=== PATIENT | female | born 1940 | race Caucasian/White ===

== ENCOUNTER 2016-05-09 21:43 | Inpatient (IN) | payer MEDICARE ==
[~2016-05-09] VITALS: Ht 152.4 cm; Wt 72.2 kg
[~2016-05-09 21:43] MED LIST: ASPI81TA82 PO; CLIN1CAP5 PO; FENO50TA PO; FISH100020 PO; FLON0.053; FURO1TAB93 PO; ISOS30TA3 PO; KLOR20TA6 PO; METF-324 PO; METO50CR PO; MONT5CHW2 CHEW; PRAV40TA2 PO; PROT40TA PO; SERT-132 PO; SPIRCAP INH; SYMB160A INH; TAZT240C2 PO
[2016-05-09] MEDS: RESP: ALBUTEROL 2.5 MG/IPRATROPIUM 0.5 MG NEB (SCH) INH ×2 (21:57→21:58)
[2016-05-09 21:58] VITALS: BP 143/61; PULSE 87; RESP 28; TEMP 98.7; O2SAT 97
[2016-05-09] MEDS ORDERED: SODIUM CHLORIDE 0.9% FLUSH 5 ML FLUSH IVF PRN (22:00)
[2016-05-09] MEDS ORDERED: methylPREDNISolone SOD SUCC 125 MG/2 ML VIAL IVP ONE (22:00)
[2016-05-09 22:11] VITALS: O2SAT 99
--- NOTE | 2016-05-09 22:20 | RADHPO ---
EXAM DATE/TIME: 05/09/2016 22:08 [place] COMPARISON: CHEST SINGLE AP, July 15, 2015, 12:10. INDICATIONS : Short of breath. MEDICAL HISTORY : Chronic obstructive pulmonary disease. Congestive heart failure. Hypertension. SURGICAL HISTORY : None. ENCOUNTER: Initial ACUITY: 2 days PAIN SCORE: 0/10 LOCATION: Bilateral chest FINDINGS: A single view of the chest demonstrates cardiomegaly. Mild peribronchial thickening. Previous rotator cuff repair right shoulder. No focal consolidation or significant effusion. CONCLUSION: 1. Cardiomegaly. No focal infiltrate. Tortuous and atherosclerotic aorta. Woody Howard MD on May 09, 2016 at 22:18 Board Certified Radiologist. This report was verified electronically.
[2016-05-09] MEDS ORDERED: TOPR50TA PO (22:32)
[2016-05-09] MEDS ORDERED: METF1000 PO (22:32)
[2016-05-09] MEDS ORDERED: ASPI1TAB69 PO (22:32)
[2016-05-09] MEDS ORDERED: ISOS30TA3 PO (22:32)
[2016-05-09] MEDS ORDERED: SYMB160A INH (22:32)
[2016-05-09] MEDS ORDERED: DILT240C36 PO (22:32)
[2016-05-09] MEDS ORDERED: FENO145T2 PO (22:32)
[2016-05-09] MEDS ORDERED: MONT5CHW2 CHEW (22:32)
[2016-05-09] MEDS ORDERED: FURO1TAB60 PO (22:32)
[2016-05-09] MEDS ORDERED: PROT40TA PO (22:33)
[2016-05-09] MEDS ORDERED: SPIRCAP INH (22:33)
[2016-05-09] MEDS ORDERED: THEO400T2 PO (22:33)
[2016-05-09] MEDS ORDERED: MICR10CA PO (22:33)
[2016-05-09] MEDS ORDERED: LOSA100T PO (22:35)
[2016-05-09 22:36] LABS: AUTOMATED NEUTROPHIL # 5.9 TH/MM3 (1.8-7.7); BASOPHIL % 0.3 % (0.0-2.0); EOSINOPHIL # 0.1 TH/MM3 (0-0.4); EOSINOPHIL % 0.7 % (0.0-4.0); LYMPH % 7.9 % (9.0-44.0); LYMPHOCYTE # 0.6 TH/MM3 (1.0-4.8); MEAN CELL VOLUME 62.5 FL (80.0-100.0); MEAN CORPUSCULAR HEMOGLOBIN 18.8 PG (27.0-34.0); MEAN CORPUSCULAR HGB CONC 30.1 % (32.0-36.0); MONO % 7.8 % (0.0-8.0); NEUT % 83.3 % (16.0-70.0); PLATELET COUNT 246 TH/MM3 (150-450); RED CELL DISTRIBUTION WIDTH 19.8 % (11.6-17.2); WHITE BLOOD COUNT 7.2 TH/MM3 (4.0-11.0)
[2016-05-09 22:45] LABS: CHLORIDE 101 MEQ/L (98-107); POTASSIUM 4.5 MEQ/L (3.5-5.1); SODIUM (NA) 139 MEQ/L (136-145)
[2016-05-09 22:49] LABS: ANION GAP 10 MEQ/L (5-15); APTT (PATIENT) 22.4 SEC (24.3-30.1); BICARBONATE 28.1 MEQ/L (21.0-32.0); BLOOD UREA NITROGEN 22 MG/DL (7-18); INTERNATIONAL NORMALIZED RATIO 1.1 RATIO; PROTHROMBIN TIME - PATIENT 11.8 SEC (9.8-11.6)
[2016-05-09 22:52] LABS: GLOMERULAR FILTRATION RATE 57 ML/MIN (>89); HEMO FLAGS AUTO DIFF
[2016-05-09 22:53] LABS: HEMATOCRIT 18.8 % (35.0-46.0)
[2016-05-09] MEDS ORDERED: SODIUM CHLOR 0.9% 250 ML INJ 250 ML IV ONE (23:15)
--- NOTE | 2016-05-09 23:18 | PD ---
HPI Chief Complaint: Respiratory Distress Time Seen by Provider: 21:53 Travel History International Travel<30 days: No Contact w/Intl Traveler<30days: No Traveled to known affect area: No History of Present Illness HPI 75yo F with PMH of COPD, CHF presents to the ED with c/o sob since yesterday. States she took her pumps but it didnt work. States she uses home O2 3L NC but she is still sob. Had chest tightness for a second and it went away. Denies any fever, n/v, abdominal pain, black stool. PFSH Past Medical History Hx Anticoagulant Therapy: Yes (81mg asa) Arthritis: Yes Anxiety: Yes Depression: Yes Heart Rhythm Problems: No Cancer: No Cardiac Catheterization: Yes Cardiovascular Problems: Yes (chf, htn) High Cholesterol: Yes Chest Pain: Yes Congestive Heart Failure: Yes COPD: Yes Coronary Artery Disease: Yes Diabetes: Yes (type 2 ) Patient Takes Glucophage: Yes Diminished Hearing: No Endocrine: Yes Gastrointestinal Disorders: Yes GERD: Yes Genitourinary: No Hypertension: Yes Musculoskeletal: Yes Neurologic: Yes Psychiatric: Yes Reproductive: Yes (oxygen use at home-2LPM ) Respiratory: Yes (copd) Sleep Apnea: Yes (c-pap at home) Thyroid Disease: Yes Tetanus Vaccination: Unknown Influenza Vaccination: Yes Menopausal: Yes Past Surgical History Abdominal Surgery: Yes (colon resection r/t beign tumor removed) Appendectomy: Yes Body Medical Devices: metal in r shoulder Cholecystectomy: Yes Coronary Artery Bypass Graft: No Eye Surgery: Yes (eye repair/cataracts bilat) Genitourinary Surgery: Yes (hysterectomy) Hysterectomy: Yes Neurologic Surgery: No Thoracic Surgery: Yes (cyst removed bilat breats) Tonsillectomy: Yes Other Surgery: Yes (bilat feet bunion removal) Family History Family Myocardial Infarction: Yes (Sibling) Social History Alcohol Use: No Tobacco Use: Yes (1/2 ppd) Substance Use: No Allergies-Medications (Allergen,Severity, Reaction): Coded Allergies: Codeine (Verified Allergy, Severe, 05/09/16) . Penicillin (Unverified Allergy, Severe, 05/09/16) . Uncoded Allergies: CRABS (Allergy, Intermediate, ., 05/09/16) . Reported Meds & Prescriptions Reported Meds & Active Scripts Active Reported Losartan (Losartan Potassium) 100 Mg Tab 100 Mg PO DAILY Theophylline ER 24 HR (Theophylline) 400 Mg Tab 300 Mg PO DAILY Spiriva Handihaler (Tiotropium Inh) 18 Mcg Cap 18 Mcg INH DAILY 1 capsule = 18 mcg Micro-K (Potassium Chloride) 10 Meq Cap 20 Meq PO BID Protonix (Pantoprazole Sodium) 40 Mg Tab 40 Mg PO DAILY Singulair (Montelukast Sodium) 5 Mg Chew 5 Mg CHEW HS Toprol XL (Metoprolol Succinate) 50 Mg Tab 50 Mg PO BID Metformin (Metformin HCl) 1,000 Mg Tab 1,000 Mg PO BIDPC With meals Isosorbide Mononitrate ER (Isosorbide Mononitrate) 30 Mg Gilberto 30 Mg PO DAILY Lasix (Furosemide) 40 Mg Tab 40 Mg PO BID Fenofibrate 145 Mg Tab 145 Mg PO HS Dilt-Xr (Diltiazem HCl) 240 Mg Caper 240 Mg PO DAILY Symbicort Inh (Budesonide/Formoterol Fumarate) 160-4.5 Mcg/Act Aero 2 Puff INH DAILY Aspirin 81 Mg Tabdr 81 Mg PO DAILY Review of Systems Except as stated in HPI: all other systems reviewed are Neg Physical Exam Narrative GENERAL: 75yo F in moderate distress. SKIN: Warm and dry. HEAD: Atraumatic. Normocephalic. EYES: Pupils equal and round. No scleral icterus. No injection or drainage. ENT: No nasal bleeding or discharge. Mucous membranes pink and moist. NECK: Trachea midline. No JVD. CARDIOVASCULAR: Regular rate and rhythm. No murmur appreciated. RESPIRATORY: + accessory muscle use. End expiratory wheezing on left. O2 sat is 95% on 3L NC but pt appears labored. GASTROINTESTINAL: Abdomen soft, non-tender, nondistended. No rebound tenderness or guarding. MUSCULOSKELETAL: No obvious deformities. No clubbing. No cyanosis. +Bilateral lower ext edema. NEUROLOGICAL: Awake and alert. No obvious cranial nerve deficits. Motor grossly within normal limits. Normal speech. PSYCHIATRIC: Appropriate mood and affect; insight and judgment normal. Data Data Last Documented VS Vital Signs Date Time Temp Pulse Resp B/P Pulse Ox O2 Delivery O2 Flow Rate FiO2 05/09/16 22:11 99 Nasal Cannula 3 05/09/16 22:06 87 28 05/09/16 21:58 98.7 143/61 Orders Complete Blood Count With Diff (05/09/16 21:54) Basic Metabolic Panel (Bmp) (05/09/16 21:54) B-Type Natriuretic Peptide (05/09/16 21:54) Act Partial Throm Time (Ptt) (05/09/16 21:54) Prothrombin Time / Inr (Pt) (05/09/16 21:54) Ckmb (Isoenzyme) Profile (05/09/16 21:54) Troponin I (05/09/16 21:54) Blood Culture (05/09/16 21:54) Iv Access Insert/Monitor (05/09/16 21:54) Electrocardiogram (05/09/16 21:54) Ecg Monitoring (05/09/16 21:54) Oximetry (05/09/16 21:54) Oxygen Administration (05/09/16 21:54) Chest, Single Ap (05/09/16 21:54) Sodium Chloride 0.9% Flush (Ns Flush) (05/09/16 22:00) Methylprednisolone So Succ Inj (Solumedr (05/09/16 22:00) Albuterol-Ipratropium Neb (Duoneb Neb) (05/09/16 22:00) Theophylline (Aminophylline) (05/09/16 22:31) Arterial Blood Gas (Abg) (05/09/16 ) Type And Screen (05/09/16 23:04) Red Blood Cells (Rbc) (05/09/16 23:04) Sodium Chlor 0.9% 250 Ml Inj (Ns 250 Ml (05/09/16 23:15) Pantoprazole Inj (Protonix Inj) (05/09/16 23:30) Pantoprazole Inj (Protonix Inj) (05/09/16 23:30) Admit To Inpatient (05/09/16 ) Vital Signs (Adult) Q4H (05/09/16 23:22) Activity Oob With Assistance (05/09/16 23:22) Collateral Analyst / Telemetry .CONTINUOUS (05/09/16 23:22) Intake + Output ROB.QSHIFT (05/09/16 23:22) Diet Heart Healthy (05/10/16 Breakfast) Sodium Chloride 0.9% Flush (Ns Flush) (05/09/16 23:30) Sodium Chloride 0.9% Flush (Ns Flush) (05/10/16 09:00) Ondansetron Inj (Zofran Inj) (05/09/16 23:30) Bisacodyl Supp (Dulcolax Supp) (05/09/16 23:30) Comprehensive Metabolic Panel (05/10/16 06:00) Complete Blood Count With Diff (05/10/16 06:00) Pharmacologic Contraindication (05/09/16 23:22) Acetaminophen (Tylenol) (05/09/16 23:30) Morphine Inj (Morphine Inj) (05/09/16 23:30) Inpatient Certification (05/09/16 ) Budeson-Formot 160-4.5 Mg Inh (Symbicort (05/09/16 23:30) Diltiazem Cd (Cardizem Cd) (05/10/16 09:00) Metoprolol Succinate Er (Toprol Xl) (05/10/16 09:00) Montelukast Chew (Singulair Chew) (05/10/16 21:00) Theophylline Er 24 Hr ([place]-24) (05/10/16 09:00) Tiotropium Inh (Spiriva Inh) (05/10/16 09:00) Admit Order (Ed Use Only) (05/09/16 23:28) Consult Gastroenterology (05/09/16 ) Blood Product Administration .UPON TRANSFUSION (05/09/16 23:29) Labs Laboratory Tests Test 05/09/16 05/09/16 05/09/16 22:05 23:10 23:16 Prothrombin Time 11.8 SEC Prothromb Time International 1.1 RATIO Ratio Activated Partial 22.4 SEC Thromboplast Time Sodium Level 139 MEQ/L Potassium Level 4.5 MEQ/L Chloride Level 101 MEQ/L Carbon Dioxide Level 28.1 MEQ/L Anion Gap 10 MEQ/L Blood Urea Nitrogen 22 MG/DL Creatinine 0.96 MG/DL Estimat Glomerular Filtration 57 ML/MIN Rate Random Glucose 159 MG/DL Calcium Level 9.5 MG/DL Total Creatine Kinase 52 U/L Troponin I LESS THAN 0.02 NG/ML B-Type Natriuretic Peptide 98 PG/ML White Blood Count 7.2 TH/MM3 Red Blood Count 3.00 MIL/MM3 Hemoglobin 5.7 GM/DL Hematocrit 18.8 % Mean Corpuscular Volume 62.5 FL Mean Corpuscular Hemoglobin 18.8 PG Mean Corpuscular Hemoglobin 30.1 % Concent Red Cell Distribution Width 19.8 % Platelet Count 246 TH/MM3 Mean Platelet Volume 7.7 FL Neutrophils (%) (Auto) 83.3 % Lymphocytes (%) (Auto) 7.9 % Monocytes (%) (Auto) 7.8 % Eosinophils (%) (Auto) 0.7 % Basophils (%) (Auto) 0.3 % Neutrophils # (Auto) 5.9 TH/MM3 Lymphocytes # (Auto) 0.6 TH/MM3 Monocytes # (Auto) 0.6 TH/MM3 Eosinophils # (Auto) 0.1 TH/MM3 Basophils # (Auto) 0.0 TH/MM3 CBC Comment AUTO DIFF Differential Comment AUTO DIFF CONFIRMED Platelet Estimate NORMAL Platelet Morphology Comment NORMAL Basophilic Stippling MOD Tear Drop Cells 1+ Ovalocytes 2+ Stomatocytes 1+ Theophylline Level 5.7 MCG/ML Blood Gas Puncture Site RT RADIAL Blood Gas Patient Temperature 98.6 Blood Gas HCO3 27 mmol/L Blood Gas Base Excess 1.2 mmol/L Blood Gas Oxygen Saturation 87 % Arterial Blood pH 7.31 Arterial Blood Partial 55 mmHG Pressure CO2 Arterial Blood Partial 73 mmHG Pressure O2 Arterial Blood Oxygen Content 6.2 Vol % Arterial Blood 3.9 % Carboxyhemoglobin Arterial Blood Methemoglobin 1.5 % Blood Gas Hemoglobin 4.9 G/DL Oxygen Delivery Device NASAL CANNULA Blood Gas Liter Flow 3 L/M Blood Type AB POSITIVE Antibody Screen NEGATIVE Crossmatch Leukocyte-Reduced Red Blood Cells Blood Bank Comment MDM Medical Decision Making Medical Screen Exam Complete: Yes Emergency Medical Condition: Yes Interpretation(s) EKG: NSR 82bpm. RBBB. No ST segment elevation or depression. Differential Diagnosis COPD exacerbation vs. CHF exacerbation vs. Pneumonia vs. ACS vs. symptomatic anemia Narrative Course 75yo F with PMH of CHF and COPD here with SOB. Pt had mild expiratory wheezing on exam so duonebs x3 and methylprednisolone 125mg IV given. Pt reevaluated at bedside and states she feels slightly better. O2 94% on 3L NC. Labs reviewed , H/H low at 5.7/18.8. BNP 98. Troponin negative. Hemaprompt is positive. Protonix bolus and drip ordered. 2 units of PRBC ordered and will transfuse 2 units now. Pt consented to blood transfusion. Pt is hemodynamically stable with BP 141/58 and HR 92. CXR showed cardiomegaly. No focal infiltrate. GI consult placed. Discussed with Dr. Rodriguez and accepted to her service. Critical Care Narrative Aggregate critical care time was 50 minutes. Time to perform other separately billable procedures was not included in the critical care time. My time did not include minutes spent treating any other patients simultaneously or on activities that did not directly contribute to the patient's treatment. The services I provided to this patient were to treat and/or prevent clinically significant deterioration that could result in: cardiovascular collapse or . I provided critical care services requiring my management, as noted below: Chart data review, documentation time, medication orders and management, vital sign assessments/reviewing monitor data, ordering and reviewing lab tests, ordering and interpreting/reviewing x-rays and diagnostic studies, care of the patient and discussion of the patient with the admitting physicians. HemaPrompt Point of Care Internal Pos. & Neg. Controls: Passed Fecal Specimen Occult Blood: Positive Diagnosis Primary Impression: GI bleed Qualified Code: K92.2 - Gastrointestinal hemorrhage, unspecified gastrointestinal hemorrhage type Admitting Information Admitting Physician Requests: it Marie Varela DO May 09, 2016 23:18
[2016-05-09 23:24] LABS: BLOOD GAS BASE EXCESS 1.2 mmol/L (-2-2); BLOOD GAS CARBOXYHEMOGLOBIN 3.9 % (0-4); BLOOD GAS HCO3 27 mmol/L (22-26); BLOOD GAS METHEMOGLOBIN 1.5 % (0-2); BLOOD GAS O2 HGB SATURATION 87 % (90-100); BLOOD GAS OXYGEN CONTENT 6.2 Vol % (12.0-20.0); BLOOD GAS PCO2 55 mmHG (38-42); BLOOD GAS PO2 73 mmHG (61-120); BLOOD GAS TOTAL HGB 4.9 G/DL (12.0-16.0); TEMP CORR TO 98.6
[2016-05-09 23:25] LABS: CRITICAL VALUE YES; DRAW SITE RT RADIAL; LITER FLOW 3 L/M; NUMBER OF ARTERIAL PUNCTURES 1; OXYGEN DEVICE NASAL CANNULA; STAT YES; ULNAR PULSE PRESENT
[2016-05-09 23:26] LABS: MEAN CORPUSCULAR HGB CONC 29.9 % (32.0-36.0)
[2016-05-09] MEDS ORDERED: ACETAMINOPHEN 325 MG TAB PO PRN (23:30)
[2016-05-09] MEDS ORDERED: PANTOPRAZOLE INJ 80 MG in SODIUM CHLORIDE 0.9% INJ 35 ML IV ONE (23:30)
[2016-05-09] MEDS ORDERED: MORPHINE SULFATE 4 MG/ML INJ IV PRN (23:30)
[2016-05-09] MEDS: BUDESONIDE-FORMOTEROL 160/4.5 MCG INHALER INH SCH (23:30)
[2016-05-09] MEDS ORDERED: BISACODYL 10 MG SUPP PR PRN (23:30)
[2016-05-09] MEDS ORDERED: ONDANSETRON HCL 4 MG/2 ML VIAL IVP PRN (23:30)
[2016-05-09 23:47] LABS: CREATINE KINASE 52 U/L (26-192)
[2016-05-10] VITALS (27 sets, daily range): BP systolic 85–173; BP diastolic 48–88; PULSE 88–109; RESP 20–44; TEMP 97.7–99; O2SAT 93–99
[2016-05-10] MEDS: PANTOPRAZOLE INJ 80 MG in SODIUM CHLORIDE 0.9% INJ 100 ML IV SCH ×3 (00:03→15:27)
[2016-05-10 00:23] LABS: OVALOCYTES 2+ (NORMAL); PLATELET ESTIMATE SMEAR NORMAL (NORMAL); PLATELET MORPHOLOGY NORMAL (NORMAL); SCAN/DIFF AUTO DIFF CONFIRMED; STOMATOCYTES 1+ (NORMAL); TEARDROP RBCS 1+ (NORMAL)
[2016-05-10] MEDS: METOPROLOL SUCCINATE 50 MG EXTENDED RELEASE TAB PO SCH ×2 (08:30→20:47)
[2016-05-10] MEDS: DILTIAZEM-CD 240 MG CAP ER PO SCH (08:30)
[2016-05-10] MEDS: BUDESONIDE-FORMOTEROL 160/4.5 MCG INHALER INH SCH (08:49)
[2016-05-10] MEDS: TIOTROPIUM BROMIDE 18 MCG INH INH SCH (08:49)
[2016-05-10] MEDS: THEOPHYLLINE 200 MG EXTENDED RELEASE CAP PO SCH (08:49)
[2016-05-10] MEDS: SODIUM CHLORIDE 0.9% FLUSH 5 ML FLUSH FLUSH SCH ×2 (09:00→21:00)
[2016-05-10] MEDS ORDERED: SERT-132 PO (09:03)
[2016-05-10] MEDS ORDERED: LOSA100T PO (09:09)
[2016-05-10] MEDS: RESP: ALBUTEROL 2.5 MG/IPRATROPIUM 0.5 MG NEB (SCH) NEB ×3 (10:15→21:55)
[2016-05-10 10:43] LABS: AUTOMATED NEUTROPHIL # 5.3 TH/MM3 (1.8-7.7); BASOPHIL % 0.2 % (0.0-2.0); EOSINOPHIL % 0.1 % (0.0-4.0); HEMATOCRIT 25.4 % (35.0-46.0); LYMPH % 6.3 % (9.0-44.0); LYMPHOCYTE # 0.4 TH/MM3 (1.0-4.8); MEAN CELL VOLUME 69.3 FL (80.0-100.0); MEAN CORPUSCULAR HEMOGLOBIN 20.7 PG (27.0-34.0); MONO % 5.1 % (0.0-8.0); NEUT % 88.3 % (16.0-70.0); PLATELET COUNT 225 TH/MM3 (150-450); RED BLOOD COUNT 3.66 MIL/MM3 (4.00-5.30); RED CELL DISTRIBUTION WIDTH 25.1 % (11.6-17.2)
[2016-05-10 10:47] LABS: HEMO FLAGS AUTO DIFF
[2016-05-10 10:54] LABS: CHLORIDE 102 MEQ/L (98-107); POTASSIUM 4.4 MEQ/L (3.5-5.1); SODIUM (NA) 140 MEQ/L (136-145)
[2016-05-10 10:58] LABS: ANION GAP 12 MEQ/L (5-15); BICARBONATE 26.2 MEQ/L (21.0-32.0); BLOOD UREA NITROGEN 21 MG/DL (7-18)
[2016-05-10 11:01] LABS: ALT (GPT) 15 U/L (10-53); AST (GOT) 15 U/L (15-37); GLOMERULAR FILTRATION RATE 56 ML/MIN (>89)
[2016-05-10 11:02] LABS: TOTAL BILIRUBIN ADULT 0.5 MG/DL (0.2-1.0)
[2016-05-10 11:04] LABS: ALKALINE PHOSPHATASE 61 U/L (45-117)
[2016-05-10 11:12] LABS: SCAN/DIFF AUTO DIFF CONFIRMED
[2016-05-10] MEDS: MENTHOL LOZENGE SUCK-ON PRN (11:37)
[2016-05-10] MEDS: PHENOL 1.4% SOLN 180 ML BTL MT PRN (11:37)
--- NOTE | 2016-05-10 11:37 | HHI.HP ---
HPI Service [facility] Primary Care Physician Genny Partida MD Admission Diagnosis GI bleed Diagnoses: Chief Complaint: Fatigue Shortness of breath Chills Sore throat Travel History International Travel<30 Days: No Contact w/Intl Traveler <30 Da: No Traveled to Known Affected Are: No History of Present Illness This is a 75-year-old female patient with a past medical history significant for COPD with continued tobacco use, hypertension, CAD with previous WI, CHF, osteoarthritis, diabetes, GERD and sleep apnea CPAP compliant who presents to [facility] ED with complaints of severe shortness of breath 1 day. Patient states she was awoken in the middle of the night with severe shortness of breath. Patient was using her CPAP machine at the time. He has chronic respiratory failure and is O2 dependent using 3 L NC /. She reports associated "chest pressure" was very fleeting lasting only a few seconds before resolving on its own. She also complains of decreased appetite for the past day and nausea but no episodes of vomiting. She takes an aspirin daily but denies taking any other [id number] NSAIDs. She denies any abdominal pain or black/tarry/bloody stools. She also denies any hematuria or dysuria. In the past week, she's had increased cough as well as a thick beige sputum production without any complaints of fever but does states she's had some chills in the past week 24 hours. She does report ongoing fatigue for the past month and a half. She has a long history of heavy tobacco use and continues to smoke half to 1 pack of cigarette per day. She reports intermittent diarrhea, which is her baseline after having had a partial colectomy for benign polyp and tumor removal. In the ED, she was found to be severely anemic with hemoglobin of 5.7 and hematocrit of 18.8. She is Hemoccult positive. She is currently receiving her second unit of packed red blood cells and states she is already feeling a little better. Chest x-ray shows cardiomegaly and no evidence of focal infiltrate or consolidation. GI has been already been consulted. She is currently on a Protonix drip. Review of Systems Constitutional: COMPLAINS OF: Chills, DENIES: Diaphoretic episodes, Fever, Weight loss, Dizziness Endocrine: DENIES: Polydipsia, Polyuria Eyes: DENIES: Blurred vision, Double Vision Ears, nose, mouth, throat: COMPLAINS OF: Throat pain (patient reports from a one-week history of coughing), DENIES: Nasal discharge, Hoarseness, Running Nose, Odynophagia Respiratory: COMPLAINS OF: Cough (1 week), Sputum production (thick, beige), Shortness of breath (chronic respiratory insufficiency, O2 dependent, worse the past 24 hours), DENIES: Hemoptysis Cardiovascular: COMPLAINS OF: Dyspnea on Exertion (chronic), Lower Extremity Edema (intermittent), DENIES: Chest pain, Palpitations, Syncope, Orthopnea Gastrointestinal: COMPLAINS OF: Nausea (24 hours), DENIES: Abdominal pain, Black stools, Bloody stools, Diarrhea, Vomiting, Difficulty Swallowing Genitourinary: DENIES: Urinary frequency, Hematuria, Dysuria Musculoskeletal: DENIES: Muscle aches, Joint Swelling Integumentary: DENIES: Pruritus, Rash Hematologic/lymphatic: DENIES: Lymphadenopathy Immunologic/allergic: DENIES: Urticaria Neurologic: DENIES: Headache, Localized weakness, Paresthesias Psychiatric: COMPLAINS OF: Anxiety (chronic), Depression (chronic unchanged), DENIES: Confusion, Mood changes Past Family Social History Past Medical History COPD, with ongoing tobacco use CAD, previous WI CHF Diabetes Dyslipidemia Hypertension Osteo-arthritis Anxiety Depression SAVANNA, CPAP compliant [place]ien[place]iena disease Past Surgical History Partial colectomy for benign tumor removal Hysterectomy Cholecystectomy Right rotator cuff repair Multiple benign breast cysts Tonsillectomy Bunionectomy Appendectomy Excision of ganglion right wrist Tendon repair right hand Reported Medications Losartan (Losartan Potassium) 100 Mg Tab 100 Mg PO DAILY Theophylline ER 24 HR (Theophylline) 400 Mg Tab 400 Mg PO DAILY Spiriva Handihaler (Tiotropium Inh) 18 Mcg Cap 18 Mcg INH DAILY 1 capsule = 18 mcg Micro-K (Potassium Chloride) 10 Meq Cap 20 Meq PO BID Protonix (Pantoprazole Sodium) 40 Mg Tab 40 Mg PO DAILY Singulair (Montelukast Sodium) 5 Mg Chew 5 Mg CHEW HS Toprol XL (Metoprolol Succinate) 50 Mg Tab 50 Mg PO BID Metformin (Metformin HCl) 1,000 Mg Tab 1,000 Mg PO BIDPC With meals Isosorbide Mononitrate ER (Isosorbide Mononitrate) 30 Mg Gilberto 30 Mg PO DAILY Lasix (Furosemide) 40 Mg Tab 40 Mg PO BID Fenofibrate 145 Mg Tab 145 Mg PO HS Dilt-Xr (Diltiazem HCl) 240 Mg Caper 240 Mg PO DAILY Symbicort Inh (Budesonide/Formoterol Fumarate) 160-4.5 Mcg/Act Aero 2 Puff INH DAILY Aspirin 81 Mg Tabdr 81 Mg PO DAILY Allergies: Coded Allergies: Codeine (Verified Allergy, Severe, 05/09/16) . Penicillin (Unverified Allergy, Severe, 05/09/16) . Uncoded Allergies: CRABS (Allergy, Intermediate, ., 05/09/16) . Active Ordered Medications Current Medications Medications (Trade) Dose Ordered Sig/Keagan Route Start Time Stop Time Status Last Admin Sodium Chloride 250 ml @ 15 mls/hr ONCE ONCE IV 05/09/16 23:15 05/10/16 15:54 05/10/16 05:22 (Protonix Inj/NS Inj) 100 ml @ 10 mls/hr Q10H IV 05/09/16 23:30 05/10/16 09:30 (NS Flush) 2 ml UNSCH PRN FLUSH 05/09/16 23:30 (NS Flush) 2 ml BID FLUSH 05/10/16 09:00 (Zofran Inj) 4 mg Q6H PRN IVP 05/09/16 23:30 (Dulcolax Supp) 10 mg DAILY PRN RI 05/09/16 23:30 (Tylenol) 650 mg Q6H PRN PO 05/09/16 23:30 (Morphine Inj) 2 mg Q3H PRN IV 05/09/16 23:30 (Symbicort 160-4.5 Inh) 2 puff Q12HR INH 05/09/16 23:30 05/10/16 08:49 (Cardizem Cd) 240 mg DAILY PO 05/10/16 09:00 05/10/16 08:30 (Toprol Xl) 50 mg BID PO 05/10/16 09:00 05/10/16 08:30 (Singulair Chew) 5 mg HS CHEW 05/10/16 21:00 (Lawrence-24) 400 mg DAILY PO 05/10/16 09:00 05/10/16 08:49 (Spiriva Inh) 18 mcg DAILY INH 05/10/16 09:00 05/10/16 08:49 Family History Mother and father, coronary artery disease Mother, diabetes Half-brother, coronary artery disease, DM Half sister, breast cancer Social History Patient has a history of heavy tobacco use, about 1/2 to 1 pack per day since the age of 15. She denies any alcohol consumption or illicit drug use. She was with her son and [id number]. She is a . Physical Exam Vital Signs Vital Signs Date Time Temp Pulse Resp B/P Pulse Ox O2 Delivery O2 Flow Rate FiO2 05/10/16 10:31 97 Nasal Cannula 3.00 05/10/16 10:09 22 94 Nasal Cannula 3 05/10/16 09:38 98 20 85/ 97 Nasal Cannula 3 05/10/16 08:15 98.0 105 20 142/77 95 Nasal Cannula 3 05/10/16 07:55 97.9 05/10/16 07:00 97.9 107 22 160/76 95 Nasal Cannula 3 05/10/16 06:34 97.9 105 22 156/61 96 Nasal Cannula 3 05/10/16 05:33 109 22 95 Nasal Cannula 3 05/10/16 05:30 97.7 109 22 165/64 95 Nasal Cannula 3 05/10/16 05:20 98.4 106 22 157/69 95 Nasal Cannula 3 05/10/16 05:18 98.4 106 22 157/69 95 Nasal Cannula 3 05/10/16 01:49 98 28 159/73 96 Nasal Cannula 3 05/10/16 01:18 93 28 173/65 96 Nasal Cannula 3 05/10/16 01:06 28 96 Nasal Cannula 3 05/10/16 00:54 95 Nasal Cannula 3.00 05/10/16 00:22 96 26 134/56 96 Nasal Cannula 3 05/09/16 22:11 99 Nasal Cannula 3 05/09/16 22:11 99 Nasal Cannula 3 05/09/16 22:06 87 28 99 Nasal Cannula 3 05/09/16 21:58 98.7 87 28 143/61 97 Physical Exam GENERAL: This is a well-nourished, well-developed patient, in mild-moderate respiratory distress. She is alert and oriented 3. SKIN: No rashes, ecchymoses or lesions. Cool and dry. HEAD: Atraumatic. Normocephalic. No temporal or scalp tenderness. EYES: Pupils equal round and reactive. Extraocular motions intact. No scleral icterus. No injection or drainage. Significant edema noted under both eyes with some erythema underneath right eye. ENT: Nose without bleeding, purulent drainage or septal hematoma. Throat without erythema, tonsillar hypertrophy or exudate. Uvula midline. Airway patent. Posterior neck with superficial erosions with crusting. NECK: Trachea midline. No lymphadenopathy. Supple, nontender, no meningeal signs. CARDIOVASCULAR: Tachycardic. No murmurs, gallops, or rubs. RESPIRATORY: Diminished breath sounds bilaterally. Prolonged expiration. Wheezing in all lung joaquin. GASTROINTESTINAL: Abdomen soft, non-tender, nondistended. No hepato-splenomegaly , or palpable masses. No guarding. MUSCULOSKELETAL: Extremities without clubbing, cyanosis, or edema. No joint tenderness, effusion, or edema noted. No calf tenderness. NEUROLOGICAL: Awake and alert. Cranial nerves II through XII intact. Motor and sensory grossly within normal limits. Five out of 5 muscle strength in all muscle groups. Normal speech. Laboratory Laboratory Tests Test 05/09/16 05/09/16 05/09/16 05/09/16 22:05 23:10 23:16 23:41 Prothrombin Time 11.8 Prothromb Time International 1.1 Ratio Activated Partial 22.4 Thromboplast Time Sodium Level 139 Potassium Level 4.5 Chloride Level 101 Carbon Dioxide Level 28.1 Anion Gap 10 Blood Urea Nitrogen 22 Creatinine 0.96 Estimat Glomerular Filtration 57 Rate Random Glucose 159 Calcium Level 9.5 Total Creatine Kinase 52 Troponin I LESS THAN 0.02 B-Type Natriuretic Peptide 98 White Blood Count 7.2 Red Blood Count 3.00 Hemoglobin 5.7 Hematocrit 18.8 Mean Corpuscular Volume 62.5 Mean Corpuscular Hemoglobin 18.8 Mean Corpuscular Hemoglobin 30.1 Concent Red Cell Distribution Width 19.8 Platelet Count 246 Mean Platelet Volume 7.7 Neutrophils (%) (Auto) 83.3 Lymphocytes (%) (Auto) 7.9 Monocytes (%) (Auto) 7.8 Eosinophils (%) (Auto) 0.7 Basophils (%) (Auto) 0.3 Neutrophils # (Auto) 5.9 Lymphocytes # (Auto) 0.6 Monocytes # (Auto) 0.6 Eosinophils # (Auto) 0.1 Basophils # (Auto) 0.0 CBC Comment AUTO DIFF Differential Comment AUTO DIFF CONFIRMED Platelet Estimate NORMAL Platelet Morphology Comment NORMAL Basophilic Stippling MOD Tear Drop Cells 1+ Ovalocytes 2+ Stomatocytes 1+ Theophylline Level 5.7 Blood Gas Puncture Site RT RADIAL Blood Gas Patient Temperature 98.6 Blood Gas HCO3 27 Blood Gas Base Excess 1.2 Blood Gas Oxygen Saturation 87 Arterial Blood pH 7.31 Arterial Blood Partial 55 Pressure CO2 Arterial Blood Partial 73 Pressure O2 Arterial Blood Oxygen Content 6.2 Arterial Blood 3.9 Carboxyhemoglobin Arterial Blood Methemoglobin 1.5 Blood Gas Hemoglobin 4.9 Oxygen Delivery Device NASAL CANNULA Blood Gas Liter Flow 3 Blood Type AB POSITIVE AB POSITIVE Antibody Screen NEGATIVE Crossmatch Leukocyte-Reduced Red Blood Cells Blood Bank Comment Test 05/10/16 05/10/16 06:40 10:30 Antibody Identification Non-Specific Agglutinin White Blood Count 6.0 Red Blood Count 3.66 Hemoglobin 7.6 Hematocrit 25.4 Mean Corpuscular Volume 69.3 Mean Corpuscular Hemoglobin 20.7 Mean Corpuscular Hemoglobin 29.9 Concent Red Cell Distribution Width 25.1 Platelet Count 225 Mean Platelet Volume 7.7 Neutrophils (%) (Auto) 88.3 Lymphocytes (%) (Auto) 6.3 Monocytes (%) (Auto) 5.1 Eosinophils (%) (Auto) 0.1 Basophils (%) (Auto) 0.2 Neutrophils # (Auto) 5.3 Lymphocytes # (Auto) 0.4 Monocytes # (Auto) 0.3 Eosinophils # (Auto) 0.0 Basophils # (Auto) 0.0 CBC Comment AUTO DIFF Date/Time Procedure Status Source Growth 05/09/16 22:12 Aerobic Blood Culture Received Blood Peripheral Pending 05/09/16 22:12 Anaerobic Blood Culture Received Blood Peripheral Pending Result Diagram: 05/10/16 1030 05/09/165 Imaging Last 48 hours Impressions Chest X-Ray 05/09/162153 Signed Impressions: Service Date/Time: Monday, May 09, 2016 22:08 - CONCLUSION: 1. Cardiomegaly. No focal infiltrate. Tortuous and atherosclerotic aorta. Woody Howard MD Assessment and Plan Assessment and Plan 75-year-old female patient with a past medical history significant for COPD with continued tobacco use, hypertension, CAD with previous WI, CHF, osteoarthritis, diabetes, GERD and sleep apnea CPAP compliant who presents to [facility] ED with complaints of severe shortness of breath 1 day and progressive fatigue for the past month. Symptomatic anemia - Patient will be admitted with continuous cardiac monitoring - Hemoccult-positive - GI consultation - Continue with Protonix drip - Avoid NSAIDs - Hold home aspirin dose - Continue with blood transfusion. Will recheck H&H and decide if further blood products indicated. Unfortunately, iron studies not ordered prior to patient receiving blood transfusion. - Supplemental oxygen COPD - Possible exacerbation - Resume bronchodilators - Resume home Singulair and theophylline - Duonebs scheduled - po Azithromycin - Sputum culture Periorbital edema/erythema R eye - possible irritation from oxygen - warm compresses - monitor Diabetes - Hold her metformin - Accu-Cheks - Insulin sliding scale Left leg edema - Duplex ultrasound ordered - Follow up on results Hypertension - Resume home meds - Monitor BP CAD, recent WI, history of CHF - Resume home meds - Continue on telemetry - Monitor for signs of fluid overload Complaints of orthopnea - Echocardiogram ordered - Follow up on results Depression/anxiety - Resume medications SAVANNA - Recommend the patient bring her CPAP from home DVT prophylaxis - Chemoprophylaxis contraindicated due to active bleed - SCD/ARIN hose Written by Jocelyne Moore, acting as scribe for Dr. Dutta on 05/10/16 at 14:42. Attending Statement The exam, history, and the medical decision-making described in the above note were completed with my assistance as the dictating practitioner. I attest that I had a [id number] encounter with the patient on the same day, and personally performed all of the history, exam, or medical decision making. I reviewed and agree with the plan. Jocelyne Moore May 10, 2016 11:37 Blessing Dutta MD May 10, 2016 17:58
[2016-05-10] MEDS ORDERED: GLUCAGON 1 MG/ML VIAL OTHER PRN (11:45)
[2016-05-10] MEDS ORDERED: DEXTROSE 50% IN WATER 50 ML VIAL(D50) IV PUSH PRN (11:45)
[2016-05-10] MEDS: ISOSORBIDE MONONITRATE 30 MG TAB PO SCH (12:17)
[2016-05-10] MEDS: LOSARTAN 50 MG TAB PO SCH (12:17)
[2016-05-10] MEDS: RESP: ALBUTEROL 2.5 MG/3 ML NEB (PRN) NEB (14:05)
[2016-05-10] MEDS: INSULIN ASPART SUPPLEMENTAL SCALE SQ SCH ×2 (14:59→20:49)
--- NOTE | 2016-05-10 15:13 | PD.CONS ---
HPI History of Present Illness This is a 75 year old female who presented to the ER for shortness of breath. Uses O2 via NC at 3L at home. Patient also has COPD with continued tobacco use, SAVANNA with compliant CPAP use. Medical history also includes HTN, CAD, IN, CHF, DM. On admission she was found to have anemia HH 5.7/18.8. She received 2 units of PRBC. Hemaprompt was positive. Patient denies any obvious blood in stool. Reports she has intermittent diarrhea, which is her baseline after partial colectomy for benign polyp and tumor removal, she reports this last EGD/ Colonoscopy was about 5 years ago in [place]. Reports previous colonoscopy before last one also revealed polyp, which was benign. Has nausea, no emesis. Sometimes has decreased appetite, no unintentional weight loss. Increased fatigue. Reports abdominal pain in epigastric area. Patient does have history of GERD. (Annamarie Dominguez) PFSH Past Medical History COPD, with continued tobacco use CAD, previous IN CHF Diabetes Dyslipidemia Hypertension OA Anxiety Depression SAVANNA, uses CPAP Past Surgical History Partial colectomy for benign tumor removal Hysterectomy Cholecystectomy Right rotator cuff repair Multiple benign breast cysts Tonsillectomy Bunionectomy Appendectomy Excision of ganglion right wrist Tendon repair right hand (Annamarie Dominguez) Coded Allergies: Codeine (Verified Allergy, Severe, 05/09/16) . Penicillin (Unverified Allergy, Severe, 05/09/16) . Uncoded Allergies: CRABS (Allergy, Intermediate, ., 05/09/16) . Medications Current Medications Medications (Trade) Dose Ordered Sig/Keagna Route PRN Reason Start Time Stop Time Status Last Admin Dose Admin Sodium Chloride 250 ml @ 15 mls/hr ONCE ONCE IV 05/09/16 23:15 05/10/16 15:54 05/10/16 05:22 Pantoprazole Sodium/Sodium Chloride (Protonix Inj/NS Inj) 100 ml @ 10 mls/hr Q10H IV 05/09/16 23:30 05/10/16 09:30 IV Flush (NS Flush) 2 ml UNSCH PRN FLUSH FLUSH AFTER USING IV ACCESS 05/09/16 23:30 IV Flush (NS Flush) 2 ml BID FLUSH 05/10/16 09:00 Ondansetron HCl (Zofran Inj) 4 mg Q6H PRN IVP NAUSEA OR VOMITING 05/09/16 23:30 Bisacodyl (Dulcolax Supp) 10 mg DAILY PRN [place] CONSTIPATION 05/09/16 23:30 Acetaminophen (Tylenol) 650 mg Q6H PRN PO FEVER/PAIN SCALE 1 TO 2 05/09/16 23:30 Morphine Sulfate (Morphine Inj) 2 mg Q3H PRN IV Pain 6-10 05/09/16 23:30 Diltiazem HCl (Cardizem Cd) 240 mg DAILY PO 05/10/16 09:00 05/10/16 08:30 Metoprolol Succinate (Toprol Xl) 50 mg BID PO 05/10/16 09:00 05/10/16 08:30 Montelukast Sodium (Singulair Chew) 5 mg HS CHEW 05/10/16 21:00 Theophylline ([place]-24) 400 mg DAILY PO 05/10/16 09:00 05/10/16 08:49 Tiotropium [place] (Spiriva Inh) 18 mcg DAILY INH 05/10/16 09:00 05/10/16 08:49 Phenol (Chloraseptic [employer]) 2 spray Q2H PRN MT SORE THROAT 05/10/16 11:00 05/10/16 11:37 Menthol ([place] Jhoana) 1 lozenge Q1H PRN SUCK-ON SORE THROAT 05/10/16 11:00 05/10/16 11:37 Budesonide/ Formoterol Fumarate (Symbicort 160-4.5 Inh) 2 puff DAILY INH 05/11/16 09:00 Fenofibrate (Tricor) 145 mg HS PO 05/10/16 21:00 Furosemide (Lasix) 40 mg BID PO 05/10/16 21:00 Sertraline HCl (Zoloft) 50 mg DAILY PO 05/11/16 09:00 Isosorbide Mononitrate (Imdur) 30 mg DAILY@0700 PO 05/10/16 12:00 05/10/16 12:17 Losartan Potassium (Cozaar) 100 mg DAILY PO 05/10/16 12:00 05/10/16 12:17 Potassium Chloride (KCl) 20 meq BID PO 05/10/16 21:00 Dextrose (D50w (Vial) Inj) 25 ml UNSCH PRN IV PUSH HYPOGLYCEMIA-SEE COMMENTS 05/10/16 11:45 Glucagon (Glucagon Inj) 1 mg UNSCH PRN OTHER HYPOGLYCEMIA-SEE COMMENTS 05/10/16 11:45 Family History No family history of colon cancer Social History Tobacco: 1/2 to 1 ppd, since the age of 15. ETOH: Denies Illicit Drugs: Denies. . (Annamarie Dominguez) Review of Systems Constitutional: COMPLAINS OF: Fatigue, Chills, Change in appetite, DENIES: Diaphoretic episodes, Fever, Weight gain, Weight loss, Dizziness, Night Sweats Endocrine: DENIES: Polydipsia, Polyuria Eyes: DENIES: Blurred vision, Photosensitivity, Double Vision Ears, nose, mouth, throat: DENIES: Hearing loss, Vertigo, Oral lesions, Throat pain, Hoarseness Respiratory: COMPLAINS OF: Cough, Sputum production, Shortness of breath, DENIES: Wheezing, Hemoptysis Cardiovascular: COMPLAINS OF: Lower Extremity Edema, DENIES: Chest pain, Palpitations, Syncope, Orthopnea, Claudication Gastrointestinal: COMPLAINS OF: Abdominal pain, Diarrhea, Nausea, Heartburn, DENIES: Black stools, Bloody stools, Constipation, Vomiting, Difficulty Swallowing, Anorexia, Odynophagia, Swelling of Abdomen, Hematemesis Genitourinary: DENIES: Urinary frequency, Urinary incontinence, Urgency, Hematuria, Dysuria, Nocturia Musculoskeletal: DENIES: Joint pain, Muscle aches, Stiffness, Joint Swelling, Back pain, Neck pain Integumentary: DENIES: Abnormal pigmentation, Nail changes, Pruritus, Rash, Jaundice Hematologic/lymphatic: DENIES: Bruising, Lymphadenopathy Immunologic/allergic: DENIES: Eczema, Urticaria Neurologic: DENIES: Abnormal gait, Headache, Localized weakness, Paresthesias Psychiatric: DENIES: Anxiety, Confusion, Mood changes, Depression, Agitation, Suicidal Ideation (Annamarie Dominguez) GI Exam Vitals I&O Vital Signs Date Time Temp Pulse Resp B/P Pulse Ox O2 Delivery O2 Flow Rate FiO2 05/10/16 13:46 100 22 150/76 97 Nasal Cannula 3 05/10/16 10:31 97 Nasal Cannula 3.00 05/10/16 10:09 22 94 Nasal Cannula 3 05/10/16 09:38 98 20 155/88 97 Nasal Cannula 3 05/10/16 08:15 98.0 105 20 142/77 95 Nasal Cannula 3 05/10/16 07:55 97.9 05/10/16 07:00 97.9 107 22 160/76 95 Nasal Cannula 3 05/10/16 06:34 97.9 105 22 156/61 96 Nasal Cannula 3 05/10/16 05:33 109 22 95 Nasal Cannula 3 05/10/16 05:30 97.7 109 22 165/64 95 Nasal Cannula 3 05/10/16 05:20 98.4 106 22 157/69 95 Nasal Cannula 3 05/10/16 05:18 98.4 106 22 157/69 95 Nasal Cannula 3 05/10/16 01:49 98 28 159/73 96 Nasal Cannula 3 05/10/16 01:18 93 28 173/65 96 Nasal Cannula 3 05/10/16 01:06 28 96 Nasal Cannula 3 05/10/16 00:54 95 Nasal Cannula 3.00 05/10/16 00:22 96 26 134/56 96 Nasal Cannula 3 05/09/16 22:11 99 Nasal Cannula 3 05/09/16 22:11 99 Nasal Cannula 3 05/09/16 22:06 87 28 99 Nasal Cannula 3 05/09/16 21:58 98.7 87 28 143/61 97 I/O 05/09/16 05/09/16 05/09/16 05/10/16 05/10/16 05/10/16 07:00 15:00 23:00 07:00 15:00 23:00 Intake Total 1230 ml Balance 1230 ml Intake Oral 480 ml IV Total 500 ml Packed Cells 250 ml # Voids 2 # Bowel Movements 1 Imaging Last Impressions Chest X-Ray 05/09/160 Signed Impressions: Service Date/Time: Monday, May 09, 2016 22:08 - CONCLUSION: 1. Cardiomegaly. No focal infiltrate. Tortuous and atherosclerotic aorta. Woody Howard MD Laboratory Test 05/09/16 05/09/16 05/09/16 05/09/16 22:05 23:10 23:16 23:41 Prothrombin Time 11.8 SEC Prothromb Time International 1.1 RATIO Ratio Activated Partial 22.4 SEC Thromboplast Time Sodium Level 139 MEQ/L Potassium Level 4.5 MEQ/L Chloride Level 101 MEQ/L Carbon Dioxide Level 28.1 MEQ/L Anion Gap 10 MEQ/L Blood Urea Nitrogen 22 MG/DL Creatinine 0.96 MG/DL Estimat Glomerular Filtration 57 ML/MIN Rate Random Glucose 159 MG/DL Calcium Level 9.5 MG/DL Total Creatine Kinase 52 U/L Troponin I LESS THAN 0.02 NG/ML B-Type Natriuretic Peptide 98 PG/ML White Blood Count 7.2 TH/MM3 Red Blood Count 3.00 MIL/MM3 Hemoglobin 5.7 GM/DL Hematocrit 18.8 % Mean Corpuscular Volume 62.5 FL Mean Corpuscular Hemoglobin 18.8 PG Mean Corpuscular Hemoglobin 30.1 % Concent Red Cell Distribution Width 19.8 % Platelet Count 246 TH/MM3 Mean Platelet Volume 7.7 FL Neutrophils (%) (Auto) 83.3 % Lymphocytes (%) (Auto) 7.9 % Monocytes (%) (Auto) 7.8 % Eosinophils (%) (Auto) 0.7 % Basophils (%) (Auto) 0.3 % Neutrophils # (Auto) 5.9 TH/MM3 Lymphocytes # (Auto) 0.6 TH/MM3 Monocytes # (Auto) 0.6 TH/MM3 Eosinophils # (Auto) 0.1 TH/MM3 Basophils # (Auto) 0.0 TH/MM3 CBC Comment AUTO DIFF Differential Comment AUTO DIFF CONFIRMED Platelet Estimate NORMAL Platelet Morphology Comment NORMAL Basophilic Stippling MOD Tear Drop Cells 1+ Ovalocytes 2+ Stomatocytes 1+ Theophylline Level 5.7 MCG/ML Blood Gas Puncture Site RT RADIAL Blood Gas Patient Temperature 98.6 Blood Gas HCO3 27 mmol/L Blood Gas Base Excess 1.2 mmol/L Blood Gas Oxygen Saturation 87 % Arterial Blood pH 7.31 Arterial Blood Partial 55 mmHG Pressure CO2 Arterial Blood Partial 73 mmHG Pressure O2 Arterial Blood Oxygen Content 6.2 Vol % Arterial Blood 3.9 % Carboxyhemoglobin Arterial Blood Methemoglobin 1.5 % Blood Gas Hemoglobin 4.9 G/DL Oxygen Delivery Device NASAL CANNULA Blood Gas Liter Flow 3 L/M Blood Type AB POSITIVE AB POSITIVE Antibody Screen NEGATIVE Crossmatch Leukocyte-Reduced Red Blood Cells Blood Bank Comment Test 05/10/16 05/10/16 06:40 10:30 Antibody Identification Non-Specific Agglutinin White Blood Count 6.0 TH/MM3 Red Blood Count 3.66 MIL/MM3 Hemoglobin 7.6 GM/DL Hematocrit 25.4 % Mean Corpuscular Volume 69.3 FL Mean Corpuscular Hemoglobin 20.7 PG Mean Corpuscular Hemoglobin 29.9 % Concent Red Cell Distribution Width 25.1 % Platelet Count 225 TH/MM3 Mean Platelet Volume 7.7 FL Neutrophils (%) (Auto) 88.3 % Lymphocytes (%) (Auto) 6.3 % Monocytes (%) (Auto) 5.1 % Eosinophils (%) (Auto) 0.1 % Basophils (%) (Auto) 0.2 % Neutrophils # (Auto) 5.3 TH/MM3 Lymphocytes # (Auto) 0.4 TH/MM3 Monocytes # (Auto) 0.3 TH/MM3 Eosinophils # (Auto) 0.0 TH/MM3 Basophils # (Auto) 0.0 TH/MM3 CBC Comment AUTO DIFF Differential Comment AUTO DIFF CONFIRMED Sodium Level 140 MEQ/L Potassium Level 4.4 MEQ/L Chloride Level 102 MEQ/L Carbon Dioxide Level 26.2 MEQ/L Anion Gap 12 MEQ/L Blood Urea Nitrogen 21 MG/DL Creatinine 0.98 MG/DL Estimat Glomerular Filtration 56 ML/MIN Rate Random Glucose 224 MG/DL Calcium Level 9.7 MG/DL Total Bilirubin 0.5 MG/DL Aspartate Amino Transf 15 U/L (AST/SGOT) Alanine Aminotransferase 15 U/L (ALT/SGPT) Alkaline Phosphatase 61 U/L Total Protein 7.9 GM/DL Albumin 3.5 GM/DL Date/Time Procedure Status Source Growth 05/09/16 22:12 Aerobic Blood Culture - Preliminary Resulted Blood Peripheral NO GROWTH IN 1 DAY 05/09/16 22:12 Anaerobic Blood Culture - Preliminary Resulted Blood Peripheral NO GROWTH IN 1 DAY Physical Examination HEENT: PERRLA; normocephalic; atraumatic; no jaundice. NECK: Neck is supple, no JVD, no lymphadenopathy. CHEST: CTA CARDIAC: RRR with no murmur gallop or rubs. ABDOMEN: Soft, obese, mild tender to palpation in epigastric region; no hepatosplenomegaly; bowel sounds are present x 4 quadrants. EXTREMITIES: No clubbing, cyanosis, or edema. SKIN: Normal; no rash; no jaundice. TREE WARDEN: No focal deficits; A&O x3. (Annamarie Dominguez) Assessment and Plan Plan ASSESSMENT: -Symptomatic anemia--Hemaprompt positive, on admission 5.7/18.8, s/p 2u PRBC. HH now 7.6/25.4. 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 -COPD--with continued tobacco use, per primary -DM, per primary -HTN, per primary -CAD, per primary -SAVANNA--uses CPAP, per primary PLAN: -EGD/Colonoscopy -Obtain consents -Clear liquid diet -NPO after MN -Monitor HH, transfuse as needed -Continue Protonix -Further recommendations to follow based on results above. Patient seen and examined by Dr. Xie and myself and this note is written on his behalf. (Annamarie Dominguez) Physician Comments Seen and examined with JURGEN, no active bleeding, severe symptomatic anemia. Transfuse as needed. EGD/Colonoscopy planned for tomorrow. Thank you (Gil Xie MD) Annamarie Dominguez May 10, 2016 15:13 Gil Xie MD May 10, 2016 17:05
[2016-05-10] MEDS ORDERED: PEG (High)/E-LYTE SOLN 4000 ML BTL PO ONE (16:00)
[2016-05-10] MEDS: AZITHROMYCIN 250 MG TAB PO SCH (16:09)
[2016-05-10 16:58] LABS: HEMATOCRIT 24.3 % (35.0-46.0)
--- NOTE | 2016-05-10 17:03 | RADHPO ---
EXAM DATE/TIME: 05/10/2016 15:29 [facility] COMPARISON: No previous studies available for comparison. INDICATIONS : Left leg swelling. MEDICAL HISTORY : Chronic obstructive pulmonary disease. Hypercholesterolemia. Myocardial infarction. Thyroid diseas e. Congestive heart failure. Coronary artery disease. Anticoagulant therapy, Aspirin. Hypertension. S leep apnea. Gastroesophageal reflux disorder. Arthritis. Diabetes. Measles. Deep vein thrombosis. SURGICAL HISTORY : Cholecystectomy. Appendectomy. Hysterectomy. Bilateral cataract removal. Cardiac catheterization. Bi lateral breast cyst removal. Partial colon resection for benign tumor removal. Right shoulder surgery . Right carpal tunnel surgery. Bilateral bunion removal. ENCOUNTER: Initial ACUITY: 1 day PAIN SCORE: 0/10 LOCATION: Left leg. TECHNIQUE: Venous ultrasound of the leg was performed from the inguinal ligament to the proximal calf. Real-raffi e, color Doppler and spectral tracing, compression and augmentation techniques were used. FINDINGS: There is normal compressibility of the deep venous system from the inguinal region to the proximal ca lf. No echogenic clot is seen in the lumen of the common femoral, femoral, popliteal, and posterior tibial veins. There is a normal response of the venous system to proximal and distal augmentation an d respiration. CONCLUSION: No DVT of the left lower extremity. Jonny Cohen MD on May 10, 2016 at 17:01 Board Certified Radiologist. This report was verified electronically.
[2016-05-10] MEDS ORDERED: SODIUM CHLOR 0.9% 250 ML INJ 250 ML IV ONE (18:45)
[2016-05-10] MEDS ORDERED: FUROSEMIDE 20 MG/2 ML VIAL IV ONE (18:45)
[2016-05-10] MEDS ORDERED: ACETAMINOPHEN 325 MG TAB PO PRN (18:45)
--- NOTE | 2016-05-10 18:57 | EKG ---
Date Performed: 05/09/2016 Time Performed: 21:59:02 PTAGE: 75 years EKG: Sinus rhythm . Right bundle branch block Compared to prior tracing no significant change Abnormal ECG PREVIOUS TRACING : 07/15/2015 17.21 DOCTOR: Simone Fong Interpretating Date/Time 05/10/2016 18:57:00
[2016-05-10] MEDS: FENOFIBRATE 145 MG TAB PO SCH (20:44)
[2016-05-10] MEDS: POTASSIUM CHLORIDE 10 MEQ CONTROLLED RELEASE TAB PO SCH (20:47)
[2016-05-10] MEDS: FUROSEMIDE 40 MG TAB PO SCH (20:52)
[2016-05-10] MEDS ORDERED: MONTELUKAST SODIUM 5 MG CHEWABLE TAB CHEW SCH (21:00)
[2016-05-10] MEDS: MONTELUKAST SODIUM 10 MG TAB PO SCH (21:19)
[2016-05-10 22:58] LABS: HEMATOCRIT 24.3 % (35.0-46.0)
[2016-05-11] VITALS (35 sets, daily range): BP systolic 102–165; BP diastolic 46–85; PULSE 78–110; RESP 22–59; TEMP 98.3–99.7; O2SAT 87–99
[2016-05-11 02:59] LABS: HEMATOCRIT 24.3 % (35.0-46.0)
[2016-05-11] MEDS: PANTOPRAZOLE INJ 80 MG in SODIUM CHLORIDE 0.9% INJ 100 ML IV SCH ×2 (03:18→15:41)
[2016-05-11] MEDS: RESP: ALBUTEROL 2.5 MG/IPRATROPIUM 0.5 MG NEB (SCH) NEB ×6 (03:28→23:26)
[2016-05-11] MEDS ORDERED: ALPRAZolam 0.25 MG TAB PO ONE (03:45)
[2016-05-11] MEDS ORDERED: PILL SPLITTER OTHER PRN (04:00)
[2016-05-11 05:19] LABS: BLOOD GAS CARBOXYHEMOGLOBIN 2.5 % (0-4); BLOOD GAS HCO3 32 mmol/L (22-26); BLOOD GAS METHEMOGLOBIN 1.2 % (0-2); BLOOD GAS O2 HGB SATURATION 94 % (90-100); BLOOD GAS PCO2 73 mmHG (38-42); BLOOD GAS PO2 87 mmHG (61-120); BLOOD GAS TOTAL HGB 7.4 G/DL (12.0-16.0); CRITICAL VALUE YES; TEMP CORR TO 98.6
[2016-05-11 05:20] LABS: DRAW SITE RT BRACHIAL; FIO2 35 %; NUMBER OF ARTERIAL PUNCTURES 1; OXYGEN DEVICE BIPAP; STAT YES; VENT SETTINGS IPAP 10/EPAP 5
--- NOTE | 2016-05-11 05:40 | RADHPO ---
EXAM DATE/TIME: 05/11/2016 05:22 [facility] COMPARISON: CHEST SINGLE AP, May 09, 2016, 22:08. INDICATIONS : Short of breath. MEDICAL HISTORY : Chronic obstructive pulmonary disease. Congestive heart failure. Hypertension. SURGICAL HISTORY : Appendectomy. Cholecystectomy. Hysterectomy. ENCOUNTER: Initial ACUITY: 1 day PAIN SCORE: 5/10 LOCATION: Bilateral chest FINDINGS: Single AP view of the chest. The lungs are clear. Moderately enlarged cardiac silhouette unchanged. N o evidence of pleural effusion or pneumothorax. CONCLUSION: Chronic cardiac silhouette enlargement. No acute cardiopulmonary disease identifi ed. Feliberto Cast MD on May 11, 2016 at 5:37 Board Certified Radiologist. This report was verified electronically.
[2016-05-11] MEDS ORDERED: FUROSEMIDE 40 MG/4 ML VIAL IV PUSH ONE (05:45)
[2016-05-11] MEDS: INSULIN ASPART SUPPLEMENTAL SCALE SQ SCH ×4 (05:51→20:57)
[2016-05-11] MEDS: RESP: ALBUTEROL 2.5 MG/3 ML NEB (PRN) NEB (05:52)
[2016-05-11 06:27] LABS: AUTOMATED NEUTROPHIL # 6.3 TH/MM3 (1.8-7.7); BASOPHIL % 0.2 % (0.0-2.0); EOSINOPHIL % 0.4 % (0.0-4.0); HEMATOCRIT 26.4 % (35.0-46.0); LYMPH % 10.2 % (9.0-44.0); LYMPHOCYTE # 0.8 TH/MM3 (1.0-4.8); MEAN CELL VOLUME 70.1 FL (80.0-100.0); MEAN CORPUSCULAR HEMOGLOBIN 21.2 PG (27.0-34.0); MEAN CORPUSCULAR HGB CONC 30.3 % (32.0-36.0); MONO % 8.4 % (0.0-8.0); NEUT % 80.8 % (16.0-70.0); PLATELET COUNT 238 TH/MM3 (150-450); RED BLOOD COUNT 3.76 MIL/MM3 (4.00-5.30); RED CELL DISTRIBUTION WIDTH 23.9 % (11.6-17.2); WHITE BLOOD COUNT 7.8 TH/MM3 (4.0-11.0)
[2016-05-11 06:30] LABS: HEMO FLAGS AUTO DIFF
[2016-05-11 06:39] LABS: POTASSIUM 4.3 MEQ/L (3.5-5.1)
[2016-05-11 06:41] LABS: BICARBONATE 31.4 MEQ/L (21.0-32.0)
--- NOTE | 2016-05-11 07:31 | HHI.GIFU ---
GI Follow-up Note Consult Follow-up Subjective: Patient laying in bed on CPAP.Scheduled for egd/colonoscopy today, patient went into respiratory distress, refused intubation.No nausea, vomiting, abdominal pain, bleeding .Endoscopy is cancelled for now Objective: PHYSICAL EXAMINATION: Vitals signs stable No fever Vital Signs Date Time Temp Pulse Resp B/P Pulse Ox O2 Delivery O2 Flow Rate FiO2 05/11/16 07:05 96 40 05/11/16 06:00 90 36 148/85 98 05/11/16 06:00 91 05/11/16 05:43 94 Bi-Pap 40 05/11/16 05:42 99 40 05/11/16 05:22 87 36 145/62 94 05/11/16 05:00 88 40 153/62 93 05/11/16 04:39 92 35 05/11/16 04:02 98.6 89 38 138/66 95 05/11/16 04:00 87 05/11/16 04:00 93 Bi-Pap 35 05/11/16 03:30 93 Bi-Pap 35 05/11/16 03:00 80 40 141/56 94 05/11/16 02:00 80 05/11/16 02:00 82 34 102/57 94 05/11/16 01:05 94 35 05/11/16 01:05 90 35 05/11/16 01:01 82 34 117/54 88 05/11/16 00:30 88 6.00 05/11/16 00:00 98.3 84 36 121/57 90 05/11/16 00:00 78 05/11/16 00:00 90 5.00 HEENT: Pupils round and reactive to light; normocephalic; atraumatic; no jaundice. Throat is clear, on cpap NECK: Neck is supple, no JVD, no lymphadenopathy. CHEST: Chest is clear to auscultation and percussion. CARDIAC: Regular rate and rhythm with no murmur gallop or rubs. ABDOMEN: Soft, nondistended, nontender; no hepatosplenomegaly; bowel sounds are present in all four quadrants, obese EXTREMITIES: No clubbing, cyanosis, or edema. SKIN: Normal; no rash; no jaundice. [employer]: No focal deficits; alert and oriented times three. Available Data (labs, X- Rays, Procedues) : Laboratory Tests Test 305/09/16 05/09/16 05/09/16 22:05 23:10 23:16 23:41 Prothrombin Time 11.8 SEC Prothromb Time International 1.1 RATIO Ratio Activated Partial 22.4 SEC Thromboplast Time Sodium Level 139 MEQ/L Potassium Level 4.5 MEQ/L Chloride Level 101 MEQ/L Carbon Dioxide Level 28.1 MEQ/L Anion Gap 10 MEQ/L Blood Urea Nitrogen 22 MG/DL Creatinine 0.96 MG/DL Estimat Glomerular Filtration 57 ML/MIN Rate Random Glucose 159 MG/DL Calcium Level 9.5 MG/DL Total Creatine Kinase 52 U/L Troponin I LESS THAN 0.02 NG/ML B-Type Natriuretic Peptide 98 PG/ML White Blood Count 7.2 TH/MM3 Red Blood Count 3.00 MIL/MM3 Hemoglobin 5.7 GM/DL Hematocrit 18.8 % Mean Corpuscular Volume 62.5 FL Mean Corpuscular Hemoglobin 18.8 PG Mean Corpuscular Hemoglobin 30.1 % Concent Red Cell Distribution Width 19.8 % Platelet Count 246 TH/MM3 Mean Platelet Volume 7.7 FL Neutrophils (%) (Auto) 83.3 % Lymphocytes (%) (Auto) 7.9 % Monocytes (%) (Auto) 7.8 % Eosinophils (%) (Auto) 0.7 % Basophils (%) (Auto) 0.3 % Neutrophils # (Auto) 5.9 TH/MM3 Lymphocytes # (Auto) 0.6 TH/MM3 Monocytes # (Auto) 0.6 TH/MM3 Eosinophils # (Auto) 0.1 TH/MM3 Basophils # (Auto) 0.0 TH/MM3 CBC Comment AUTO DIFF Differential Comment AUTO DIFF CONFIRMED Platelet Estimate NORMAL Platelet Morphology Comment NORMAL Basophilic Stippling MOD Tear Drop Cells 1+ Ovalocytes 2+ Stomatocytes 1+ Theophylline Level 5.7 MCG/ML Blood Gas Puncture Site RT RADIAL Blood Gas Patient Temperature 98.6 Blood Gas HCO3 27 mmol/L Blood Gas Base Excess 1.2 mmol/L Blood Gas Oxygen Saturation 87 % Arterial Blood pH 7.31 Arterial Blood Partial 55 mmHG Pressure CO2 Arterial Blood Partial 73 mmHG Pressure O2 Arterial Blood Oxygen Content 6.2 Vol % Arterial Blood 3.9 % Carboxyhemoglobin Arterial Blood Methemoglobin 1.5 % Blood Gas Hemoglobin 4.9 G/DL Oxygen Delivery Device NASAL CANNULA Blood Gas Liter Flow 3 L/M Blood Type AB POSITIVE AB POSITIVE Antibody Screen NEGATIVE Crossmatch Leukocyte-Reduced Red Blood Cells Blood Bank Comment Test 05/10/16 05/10/16 05/10/16 05/10/16 06:40 10:30 16:49 17:55 Antibody Identification Non-Specific Agglutinin White Blood Count 6.0 TH/MM3 Red Blood Count 3.66 MIL/MM3 Hemoglobin 7.6 GM/DL 7.2 GM/DL Hematocrit 25.4 % 24.3 % Mean Corpuscular Volume 69.3 FL Mean Corpuscular Hemoglobin 20.7 PG Mean Corpuscular Hemoglobin 29.9 % Concent Red Cell Distribution Width 25.1 % Platelet Count 225 TH/MM3 Mean Platelet Volume 7.7 FL Neutrophils (%) (Auto) 88.3 % Lymphocytes (%) (Auto) 6.3 % Monocytes (%) (Auto) 5.1 % Eosinophils (%) (Auto) 0.1 % Basophils (%) (Auto) 0.2 % Neutrophils # (Auto) 5.3 TH/MM3 Lymphocytes # (Auto) 0.4 TH/MM3 Monocytes # (Auto) 0.3 TH/MM3 Eosinophils # (Auto) 0.0 TH/MM3 Basophils # (Auto) 0.0 TH/MM3 CBC Comment AUTO DIFF Differential Comment AUTO DIFF CONFIRMED Sodium Level 140 MEQ/L Potassium Level 4.4 MEQ/L Chloride Level 102 MEQ/L Carbon Dioxide Level 26.2 MEQ/L Anion Gap 12 MEQ/L Blood Urea Nitrogen 21 MG/DL Creatinine 0.98 MG/DL Estimat Glomerular Filtration 56 ML/MIN Rate Random Glucose 224 MG/DL Calcium Level 9.7 MG/DL Total Bilirubin 0.5 MG/DL Aspartate Amino Transf 15 U/L (AST/SGOT) Alanine Aminotransferase 15 U/L (ALT/SGPT) Alkaline Phosphatase 61 U/L Total Protein 7.9 GM/DL Albumin 3.5 GM/DL Blood Type AB POSITIVE Crossmatch Leukocyte-Reduced Red Blood Cells Blood Bank Comment Test 05/10/16 05/10/16 05/11/16 05/11/16 22:52 23:40 02:40 05:06 Hemoglobin 7.6 GM/DL 7.7 GM/DL Hematocrit 24.3 % 24.3 % Nasal Screen MRSA (PCR) NEGATIVE Blood Gas Puncture Site RT BRACHIAL Blood Gas Patient Temperature 98.6 Blood Gas HCO3 32 mmol/L Blood Gas Base Excess 5.0 mmol/L Blood Gas Oxygen Saturation 94 % Arterial Blood pH 7.26 Arterial Blood Partial 73 mmHG Pressure CO2 Arterial Blood Partial 87 mmHG Pressure O2 Arterial Blood Oxygen Content 10.0 Vol % Arterial Blood 2.5 % Carboxyhemoglobin Arterial Blood Methemoglobin 1.2 % Blood Gas Hemoglobin 7.4 G/DL Oxygen Delivery Device BIPAP Blood Gas Ventilator Setting IPAP 10/EPAP 5 Blood Gas Inspired Oxygen 35 % Test 05/11/16 06:14 White Blood Count 7.8 TH/MM3 Red Blood Count 3.76 MIL/MM3 Hemoglobin 8.0 GM/DL Hematocrit 26.4 % Mean Corpuscular Volume 70.1 FL Mean Corpuscular Hemoglobin 21.2 PG Mean Corpuscular Hemoglobin 30.3 % Concent Red Cell Distribution Width 23.9 % Platelet Count 238 TH/MM3 Mean Platelet Volume 8.4 FL Neutrophils (%) (Auto) 80.8 % Lymphocytes (%) (Auto) 10.2 % Monocytes (%) (Auto) 8.4 % Eosinophils (%) (Auto) 0.4 % Basophils (%) (Auto) 0.2 % Neutrophils # (Auto) 6.3 TH/MM3 Lymphocytes # (Auto) 0.8 TH/MM3 Monocytes # (Auto) 0.7 TH/MM3 Eosinophils # (Auto) 0.0 TH/MM3 Basophils # (Auto) 0.0 TH/MM3 CBC Comment AUTO DIFF Sodium Level 142 MEQ/L Potassium Level 4.3 MEQ/L Chloride Level 102 MEQ/L Carbon Dioxide Level 31.4 MEQ/L Anion Gap 9 MEQ/L Blood Urea Nitrogen 20 MG/DL Creatinine 0.90 MG/DL Estimat Glomerular Filtration 61 ML/MIN Rate Random Glucose 160 MG/DL Calcium Level 9.5 MG/DL B-Type Natriuretic Peptide 110 PG/ML ASSESSMENT/PLAN: symptomatic anemia-no indication of gi bleeding at this time respiratory failure secondary copd-on CPAP-refusing intubations Recommendations egd/colonoscopy when stable , if active bleeding we will consider endoscopy on emergency, may need intubation-at this time refusing celiac panel ct abdomen/pelvis resume diet when stable from pulmonary point transfuse prn top keep hb more than 8 It was a pleasure seeing Daiana Nelson. Thank you for this consult. Entered by: Sonia Oliver MD May 11, 2016 07:31
[2016-05-11 07:50] LABS: OVALOCYTES 1+ (NORMAL); ROULEAUX PRESENT (NORMAL); SCAN/DIFF AUTO DIFF CONFIRMED
[2016-05-11] MEDS: SODIUM CHLORIDE 0.9% FLUSH 5 ML FLUSH FLUSH SCH ×2 (08:29→20:52)
[2016-05-11] MEDS: ISOSORBIDE MONONITRATE 30 MG TAB PO SCH (08:29)
[2016-05-11] MEDS: THEOPHYLLINE 200 MG EXTENDED RELEASE CAP PO SCH (09:32)
[2016-05-11] MEDS: METOPROLOL SUCCINATE 50 MG EXTENDED RELEASE TAB PO SCH ×2 (09:32→20:51)
[2016-05-11] MEDS: SERTRALINE HCL 50 MG TAB PO SCH (09:33)
[2016-05-11] MEDS: POTASSIUM CHLORIDE 10 MEQ CONTROLLED RELEASE TAB PO SCH ×2 (09:33→20:51)
[2016-05-11] MEDS: FUROSEMIDE 40 MG TAB PO SCH ×2 (09:33→20:50)
[2016-05-11] MEDS: LOSARTAN 50 MG TAB PO SCH (09:33)
[2016-05-11] MEDS: DILTIAZEM-CD 240 MG CAP ER PO SCH (09:33)
[2016-05-11] MEDS: AZITHROMYCIN 250 MG TAB PO SCH (09:33)
[2016-05-11] MEDS: TIOTROPIUM BROMIDE 18 MCG INH INH SCH ×2 (09:34→10:57)
[2016-05-11] MEDS ORDERED: PNEUMOCOCCAL POLYVALENT INJ 25 MCG/0.5 ML SYR IM ONE (10:00)
[2016-05-11] MEDS ORDERED: DIATRIZOATE MEGLUM/DIATRIZOATE SOD 9 ML CUP PO ONE (10:00)
[2016-05-11] MEDS ORDERED: CHLORHEXIDINE GLUCONATE 2 % 1 PACK (2 CLOTHS)(extra cloths) TOP PRN (10:00)
[2016-05-11] MEDS: BUDESONIDE-FORMOTEROL 160/4.5 MCG INHALER INH SCH (10:57)
[2016-05-11] MEDS ORDERED: RESP: ALBUTEROL 2.5 MG/3 ML NEB (PRN) NEB (12:00)
--- NOTE | 2016-05-11 12:17 | EC ---
Study Study Date:05/11/2016 STUDY CONCLUSIONS SUMMARY LEFT VENTRICLE: The cavity size was normal. Wall thickness was normal. Systolic function was normal. The estimated ejection fraction was in the range of 55% to 60%. Wall motion was normal; there were no regional wall motion abnormalities. If LV function is below 40, please consider prescribing an ACEI or ARB or document rationale for non-use. PROCEDURE DATA STUDY STATUS: Elective. Procedure: Transthoracic echocardiography. Image quality was good. Scanning was performed from the parasternal, apical, and subcostal acoustic windows. Study completion: The patient tolerated the procedure well. Transthoracic echocardiography. M-mode, complete 2D, complete spectral Doppler, and color Doppler. Patient status: Inpatient. CARDIAC ANATOMY LEFT VENTRICLE: The cavity size was normal. Wall thickness was normal. Systolic function was normal. The estimated ejection fraction was in the range of 55% to 60%. Wall motion was normal; there were no regional wall motion abnormalities. AORTIC VALVE: Trileaflet; normal thickness leaflets. Doppler: Transvalvular velocity was within the normal range. There was no stenosis. No regurgitation. Peak gradient: 13mm Hg (S). AORTA: Aortic root: The aortic root was normal in size. MITRAL VALVE: Structurally normal valve. Doppler: Transvalvular velocity was within the normal range. There was no evidence for stenosis. No regurgitation. Peak gradient: 3mm Hg (D). LEFT ATRIUM: The atrium was normal in size. RIGHT VENTRICLE: The cavity size was normal. Wall thickness was normal. PULMONIC VALVE: Doppler: Transvalvular velocity was within the normal range. There was no evidence for stenosis. No regurgitation. TRICUSPID VALVE: Structurally normal valve. Doppler: Transvalvular velocity was within the normal range. No regurgitation. PULMONARY ARTERY: The main pulmonary artery was normal-sized. Systolic pressure was within the normal range. RIGHT ATRIUM: The atrium was normal in size. PERICARDIUM: There was no pericardial effusion. SYSTEMIC VEINS: Inferior vena cava: The vessel was normal in size. BASIC MEASUREMENTS ADULT Normal Left ventricle LV internal dimension, ED, chordal level, 49.1 mm 43-52 PLAX LV internal dimension, ES, chordal level, 37 mm 23-38 PLAX Fractional shortening, chordal level, PLAX *25 % >29 LV posterior wall thickness, ED 7.88 mm IVS/LVPW ratio, ED *1.94 <1.3 Ventricular septum Septal thickness, ED 15.3 mm Left atrium Anterior-posterior dimension 37 mm Right ventricle RV internal dimension, ED, PLAX 26.6 mm 19-38 DOPPLER MEASUREMENTS ADULT Normal Main pulmonary artery Pressure, S 23 mm Hg =30 Aortic valve Peak velocity, S 183 cm/s Peak gradient, S 13 mm Hg Mitral valve Peak E-wave velocity 92.6 cm/s Peak A-wave velocity 130 cm/s Peak gradient, D 3 mm Hg Peak E/A ratio 0.7 Tricuspid valve Regurgitant peak velocity 182 cm/s Peak RV-RA gradient, S 13 mm Hg Maximal regurgitant velocity 182 cm/s Systemic veins Estimated CVP 10 mm Hg Right ventricle RV pressure, S 23 mm Hg <30 LEGEND: Mean values are shown as u=mean value. Asterisk (*) stock values outside specified normal range. Prepared and signed by Francis Arrieta [id number]
[2016-05-11] MEDS: NICOTINE 21 MG/24 HR PATCH TD SCH (12:22)
[2016-05-11] MEDS: REMOVE OLD NICODERM (NICOTINE) PATCH TD SCH (12:22)
[2016-05-11] MEDS: ALPRAZolam 0.25 MG TAB PO PRN ×2 (12:22→23:19)
[2016-05-11 12:39] LABS: TRANSFERRIN IRON PROFILE 359 MG/DL (200-360)
[2016-05-11 13:04] LABS: FERRITIN 10 NG/ML (8-252)
--- NOTE | 2016-05-11 14:09 | RADHPO ---
EXAM DATE/TIME: 05/11/2016 13:26 [facility] COMPARISON: CT ABDOMEN & PELVIS W/O CONTRAST, July 15, 2015, 11:52. INDICATIONS : Symptomatic anemia. Evaluate for GI bleed. ORAL CONTRAST: Prescribed oral contrast ingested. RADIATION DOSE: 17.82 CTDIvol (mGy) MEDICAL HISTORY : Chronic obstructive pulmonary disease. Deep venous thrombosis. Cardiovascular diseaseAnticoagulant th erapy. Hypertension. Diabetes. SURGICAL HISTORY : Cholecystectomy. Appendectomy.Hysterectomy.Colon resection-benign tumor removed. ENCOUNTER: Initial ACUITY: 1 day PAIN SCALE: 0/10 LOCATION: abdomen/pelvis TECHNIQUE: Volumetric scanning of the abdomen and pelvis was performed. Using automated exposure control and ad justment of the mA and/or kV according to patient size, radiation dose was kept as low as reasonably achievable to obtain optimal diagnostic quality images. FINDINGS: LOWER LUNGS: The visualized lower lungs are clear. Mild cardiomegaly. Tiny hiatal hernia. LIVER: Homogeneous density without lesion. There is no dilation of the biliary tree. No calcified gallston es. SPLEEN: Normal size without lesion. PANCREAS: Within normal limits. KIDNEYS: Normal in size and shape. There is no mass, stone, or hydronephrosis. 1 mm calcifications along the hilum of the left kidney are more consistent with atherosclerotic calcifications. No collecting syste m stones observed. ADRENAL GLANDS: Nodular thickening of the left adrenal gland is stable from the prior study. Right adrenal gland is u nremarkable. VASCULAR: There is no aortic aneurysm. BOWEL/MESENTERY: The stomach, small bowel, and colon demonstrate no acute abnormality. There is no free intraperitone al air or fluid. ABDOMINAL WALL: Within normal limits. RETROPERITONEUM: There is no lymphadenopathy. BLADDER: A Alexander balloon is present and the urinary bladder largely decompressed. REPRODUCTIVE: Within normal limits. INGUINAL: There is no lymphadenopathy or hernia. 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 CONCLUSION: 1. No acute abnormality. 2. Nodular thickening involving the left adrenal gland is unchanged. This is poorly characterized on this exam. Phani Villa Jr., MD on May 11, 2016 at 13:59 Board Certified Radiologist. This report was verified electronically.
--- NOTE | 2016-05-11 15:58 | HHI.PR ---
Subjective Remarks Follow-up symptomatic anemia/GI bleed/respiratory failure 05/11/16: Patient seen and examined, early this morning she was in respiratory failure prompting cancellation of EGD; however now improving. Objective Vitals Vital Signs Date Time Temp Pulse Resp B/P Pulse Ox O2 Delivery O2 Flow Rate FiO2 05/11/16 14:00 96 05/11/16 12:00 96 05/11/16 11:20 93 Nasal Cannula 3.00 05/11/16 10:00 96 05/11/16 08:00 102 05/11/16 08:00 Bi-Pap 40 05/11/16 08:00 102 38 158/61 95 05/11/16 07:05 96 40 05/11/16 07:00 98.5 100 47 145/61 96 05/11/16 06:00 90 36 148/85 98 05/11/16 06:00 91 05/11/16 05:43 94 Bi-Pap 40 05/11/16 05:42 99 40 05/11/16 05:22 87 36 145/62 94 05/11/16 05:00 88 40 153/62 93 05/11/16 04:39 92 35 05/11/16 04:02 98.6 89 38 138/66 95 05/11/16 04:00 87 05/11/16 04:00 93 Bi-Pap 35 05/11/16 03:30 93 Bi-Pap 35 05/11/16 03:00 80 40 141/56 94 05/11/16 02:00 80 05/11/16 02:00 82 34 102/57 94 05/11/16 01:05 94 35 05/11/16 01:05 90 35 05/11/16 01:01 82 34 117/54 88 05/11/16 00:30 88 6.00 05/11/16 00:00 98.3 84 36 121/57 90 05/11/16 00:00 78 05/11/16 00:00 90 5.00 05/10/16 23:11 98.3 88 28 133/58 94 05/10/16 22:50 99.0 90 32 145/66 93 05/10/16 22:30 92 3.00 05/10/16 22:00 90 05/10/16 22:00 98.6 90 32 142/75 93 05/10/16 21:24 98.3 92 40 145/65 98 05/10/16 21:00 98.4 90 34 152/69 98 05/10/16 20:30 98.7 95 32 149/60 94 05/10/16 20:00 93 05/10/16 20:00 93 Nasal Cannula 3.00 05/10/16 19:45 98.4 96 34 146/48 96 05/10/16 19:30 95 Nasal Cannula 3.00 05/10/16 18:42 104 40 149/68 93 05/10/16 17:30 97.8 108 44 156/77 05/10/16 17:28 99 Nasal Cannula 3.00 05/10/16 17:19 84 22 148/88 96 Nasal Cannula 3 I/O 05/10/16 05/10/16 05/10/16 05/11/16 05/11/16 05/11/16 07:00 15:00 23:00 07:00 15:00 23:00 Intake Total 1230 ml 4400 ml Output Total 350 ml 1300 ml Balance 1230 ml 4050 ml -1300 ml Intake Oral 480 ml 4000 ml IV Total 500 ml 120 ml Packed Cells 250 ml 280 ml Output Urine Total 350 ml 1300 ml # Voids 2 2 5 # Bowel Movements 1 4 Result Diagram: 05/11/16 0614 05/11/1614 Imaging Last Impressions Chest X-Ray 05/09/162153 Signed Impressions: Service Date/Time: Monday, May 09, 2016 22:08 - CONCLUSION: 1. Cardiomegaly. No focal infiltrate. Tortuous and atherosclerotic aorta. Woody Howard MD Objective Remarks GENERAL: NAD and resting SKIN: Warm and dry. HEAD: Normocephalic. EYES: No scleral icterus. No injection or drainage. NECK: Supple, trachea midline. No JVD or lymphadenopathy. CARDIOVASCULAR: Regular rate and rhythm without murmurs, gallops, or rubs. RESPIRATORY: Breath sounds equal bilaterally. No accessory muscle use. GASTROINTESTINAL: Abdomen soft, non-tender, nondistended. MUSCULOSKELETAL: No cyanosis, or edema. BACK: Nontender without obvious deformity. No CVA tenderness. A/P Problem List: (1) Symptomatic anemia ICD Code: D64.9 Status: Acute (2) GI bleed ICD Code: K92.2 Status: Acute (3) COPD (chronic obstructive pulmonary disease) ICD Code: J44.9 Status: Acute Assessment and Plan 75-year-old female with GI bleed: Continue with Protonix drip and appreciate input from gastroenterology. However EGD was canceled today secondary to respiratory failure. Monitor H&H and transfuse accordingly Symptomatic anemia: Transfused 2 units red blood cell, H&H stable COPD exacerbation: Continue bronchodilator, Singulair and theophylline as well as Azithromycin. Start by mouth prednisone pending Sputum culture Diabetes: Hold her metformin and continue with insulin sliding scale Hypertension: Continue home meds CAD, recent MO, history of CHF - Continue home meds - Continue on telemetry - Monitor for signs of fluid overload Complaints of orthopnea: 2-D echo noted and review Depression/anxiety: Continue medications SAVANNA along with respiratory failure: Patient did refuse intubation, continue with CPAP and maintain oxygen saturation above 92% DVT prophylaxis - Chemoprophylaxis contraindicated due to active bleed - SCD/ARIN shannon Problem Qualifiers (1) GI bleed: Qualified Code: K92.2 - Gastrointestinal hemorrhage, unspecified gastrointestinal hemorrhage type Chris Doll MD May 11, 2016 15:58
[2016-05-11] MEDS: MONTELUKAST SODIUM 10 MG TAB PO SCH (20:51)
[2016-05-11] MEDS: FENOFIBRATE 145 MG TAB PO SCH (20:51)
[2016-05-12] VITALS (32 sets, daily range): BP systolic 117–192; BP diastolic 44–71; PULSE 82–106; RESP 4–37; TEMP 98.1–99.5; O2SAT 88–100
[2016-05-12] MEDS: PANTOPRAZOLE INJ 80 MG in SODIUM CHLORIDE 0.9% INJ 100 ML IV SCH (00:23)
[2016-05-12] MEDS ORDERED: CHLORHEXIDINE GLUCONATE 2 % 1 PACK (2 CLOTHS)(taper/protocol) TOP SCH (04:00)
[2016-05-12] MEDS: RESP: ALBUTEROL 2.5 MG/IPRATROPIUM 0.5 MG NEB (SCH) NEB ×6 (04:16→23:02)
[2016-05-12] MEDS: ISOSORBIDE MONONITRATE 30 MG TAB PO SCH ×2 (05:07→09:10)
[2016-05-12 05:11] LABS: AUTOMATED NEUTROPHIL # 4.4 TH/MM3 (1.8-7.7); BASOPHIL % 0.4 % (0.0-2.0); EOSINOPHIL % 0.8 % (0.0-4.0); HEMATOCRIT 25.2 % (35.0-46.0); LYMPH % 18.8 % (9.0-44.0); LYMPHOCYTE # 1.2 TH/MM3 (1.0-4.8); MEAN CELL VOLUME 71.1 FL (80.0-100.0); MEAN CORPUSCULAR HEMOGLOBIN 21.6 PG (27.0-34.0); MEAN CORPUSCULAR HGB CONC 30.3 % (32.0-36.0); MONO % 9.9 % (0.0-8.0); NEUT % 70.1 % (16.0-70.0); PLATELET COUNT 206 TH/MM3 (150-450); POTASSIUM 4.1 MEQ/L (3.5-5.1); RED BLOOD COUNT 3.55 MIL/MM3 (4.00-5.30); RED CELL DISTRIBUTION WIDTH 25.1 % (11.6-17.2); WHITE BLOOD COUNT 6.2 TH/MM3 (4.0-11.0)
[2016-05-12] MEDS: INSULIN ASPART SUPPLEMENTAL SCALE SQ SCH ×4 (05:12→22:53)
[2016-05-12 05:25] LABS: HEMO FLAGS AUTO DIFF
[2016-05-12 08:10] LABS: PLATELET ESTIMATE SMEAR NORMAL (NORMAL); SCAN/DIFF AUTO DIFF CONFIRMED
[2016-05-12] MEDS: NICOTINE 21 MG/24 HR PATCH TD SCH (09:07)
[2016-05-12] MEDS: REMOVE OLD NICODERM (NICOTINE) PATCH TD SCH (09:07)
[2016-05-12] MEDS: BUDESONIDE-FORMOTEROL 160/4.5 MCG INHALER INH SCH (09:09)
[2016-05-12] MEDS: TIOTROPIUM BROMIDE 18 MCG INH INH SCH (09:09)
[2016-05-12] MEDS: PHENOL 1.4% SOLN 180 ML BTL MT PRN (09:09)
[2016-05-12] MEDS: LOSARTAN 50 MG TAB PO SCH (09:09)
[2016-05-12] MEDS: POTASSIUM CHLORIDE 10 MEQ CONTROLLED RELEASE TAB PO SCH ×2 (09:10→20:42)
[2016-05-12] MEDS: SERTRALINE HCL 50 MG TAB PO SCH (09:10)
[2016-05-12] MEDS: DILTIAZEM-CD 240 MG CAP ER PO SCH (09:10)
[2016-05-12] MEDS: THEOPHYLLINE 200 MG EXTENDED RELEASE CAP PO SCH (09:10)
[2016-05-12] MEDS: METOPROLOL SUCCINATE 50 MG EXTENDED RELEASE TAB PO SCH ×2 (09:10→20:42)
[2016-05-12] MEDS: FUROSEMIDE 40 MG TAB PO SCH ×2 (09:10→20:42)
[2016-05-12] MEDS: AZITHROMYCIN 250 MG TAB PO SCH (09:10)
[2016-05-12] MEDS: SODIUM CHLORIDE 0.9% FLUSH 5 ML FLUSH FLUSH SCH ×2 (09:11→20:44)
--- NOTE | 2016-05-12 09:52 | HHI.PR ---
Subjective Remarks Patient seen and examined today. Follow up with GI bleed and respiratory failure. Patient with chronic respiratory failure, usually on 2 L nasal cannula. Patient continues on BiPAP at night for respiratory support. Patient declines intubation. GI deferring scope until patient is stable from respiratory standpoint. Objective Vitals Vital Signs Date Time Temp Pulse Resp B/P Pulse Ox O2 Delivery O2 Flow Rate FiO2 05/12/16 08:03 97 45 05/12/16 06:00 84 27 131/59 93 05/12/16 06:00 84 05/12/16 05:00 87 27 131/59 92 05/12/16 04:15 94 40 05/12/16 04:00 86 05/12/16 04:00 98.6 86 28 142/47 92 05/12/16 04:00 94 Bi-Pap 45 05/12/16 03:00 88 28 144/52 96 05/12/16 02:00 86 27 143/62 94 05/12/16 02:00 86 05/12/16 01:00 92 25 192/71 91 05/12/16 00:45 93 40 05/12/16 00:00 98.1 88 29 119/50 90 05/12/16 00:00 90 Bi-Pap 40 05/12/16 00:00 88 05/11/16 23:00 96 28 97 05/11/16 22:00 96 30 141/63 87 05/11/16 22:00 96 05/11/16 21:06 93 40 05/11/16 21:00 92 22 143/59 93 05/11/16 20:00 89 Nasal Cannula 6.00 05/11/16 20:00 99.7 106 22 150/52 89 05/11/16 20:00 110 05/11/16 19:45 98 Nasal Cannula 4.00 05/11/16 19:00 106 22 159/59 96 05/11/16 18:00 108 05/11/16 18:00 108 47 165/51 94 05/11/16 18:00 94 Nasal Cannula 6.00 05/11/16 17:45 95 Nasal Cannula 6.00 05/11/16 17:00 Bi-Pap 40 05/11/16 17:00 106 37 145/62 92 05/11/16 16:58 96 40 05/11/16 16:00 92 Nasal Cannula 4.00 05/11/16 16:00 104 05/11/16 16:00 98.7 104 41 144/46 96 05/11/16 15:00 100 33 132/59 94 05/11/16 14:00 96 32 145/60 93 05/11/16 14:00 96 05/11/16 13:00 92 28 142/57 93 05/11/16 12:00 92 Nasal Cannula 4.00 05/11/16 12:00 98.5 96 56 132/48 92 05/11/16 12:00 96 05/11/16 11:20 93 Nasal Cannula 3.00 05/11/16 11:00 100 43 112/59 91 05/11/16 10:00 96 34 129/59 94 05/11/16 10:00 96 I/O 05/11/16 05/11/16 05/11/16 05/12/16 05/12/16 05/12/16 07:00 15:00 23:00 07:00 15:00 23:00 Intake Total 1065 ml 278 ml 128 ml Output Total 1300 ml 1300 ml 1350 ml 400 ml Balance -1300 ml -235 ml -1072 ml -272 ml Intake Oral 960 ml 240 ml 60 ml IV Total 105 ml 38 ml 68 ml Output Urine Total 1300 ml 1300 ml 1350 ml 400 ml Stool Total 0 ml # Voids 5 # Bowel Movements 2 1 Result Diagram: 05/12/1641205/12/16412 Objective Remarks GENERAL: Well-developed, well-nourished, in no acute distress. alert and orientated HEENT: Head is normocephalic without any lesions or masses noted. Facial features are symmetric. Eyes: Extraocular muscles are intact. Conjunctivae were clear. NECK: Supple without any masses. Trachea midline no deviation. No JVD, CARDIAC: Regular rhythm, regular rate. S1/S2 are heard. No murmurs gallops or rubs. LUNGS: Clear to auscultation bilaterally. Forced expiratory coarse wheezing. No rhonchi or rales. No use of accessory muscles on inspiration or expiration. ABDOMEN: Soft, nontender. Nondistended. Bowel sounds heard in all 4 quadrants. No organomegaly or masses. Negative rebound, negative guarding EXTREMITIES: No edema, pulses are equal bilaterally. No cyanosis or clubbing NEUROLOGY: Mood and affect appear appropriate. Cranial nerves II through XII grossly intact. Moving all extremities, speech is clear Urinary Catheter: Yes Assessment to: Continue Alexander insert reason: Measure Accurate Output Vascular Central Line Catheter: No A/P Assessment and Plan Acute hypoxic respiratory failure in a patient with chronic respiratory failure oxygen dependent secondary to COPD exacerbation: Continue O2 supplementation to maintain O2 sats greater than 92%. Continue BiPAP as needed. Continue nebulizer every 4 hours and as needed, Symbicort, Zithromax, Spiriva. Start Solu-Medrol 60 mg every 6 hours. Awaiting pulmonology consultation GI bleed with symptomatic anemia: Gastroenterology has evaluated patient and is deferring endoscopies to respiratory status has been stabilized. Patient is on Protonix drip, will change to Protonix IV twice daily, Monitor H&H and transfuse accordingly, status post transfusion 2 units packed red blood cells. Iron studies to indicate iron deficient anemia. We'll start ferrous sulfate/ vitamin C Skin rash in inguinal folds, under breasts: Likely fungal in nature. Will use nystatin powder. Diabetes: Hold her metformin and continue with insulin sliding scale, start diabetic diet Hypertension: Home medications have been continued Coronary artery disease, recent myocardial infarction, chronic diastolic congestive heart failure: Alexander catheter is in place to monitor accurate input and output. Avoid fluid overload. Home medications have been continued. Depression/anxiety: Home medications were continued DVT prophylaxis: Chemoprophylaxis contraindicated due to active bleed, SCD/ARIN hose Written by Hector Richmond PA-C, acting as scribe for Dr. Doll on 05/12/16 at 1045. The documentation accurately reflects the work and decisions performed face-to- face by Dr. Doll on 05/12/16 at 1045. Hector Richmond May 12, 2016 09:52
[2016-05-12] MEDS: ASCORBIC ACID 500 MG TAB PO SCH (10:00)
[2016-05-12] MEDS: methylPREDNISolone SOD SUCC 125 MG/2 ML VIAL IV SCH ×3 (11:46→23:00)
[2016-05-12] MEDS: NYSTATIN 100,000 U/GM PWD 15 GM BTL TOPICAL SCH ×2 (11:46→20:42)
[2016-05-12] MEDS: PANTOPRAZOLE SODIUM 40 MG VIAL IV PUSH SCH (11:46)
[2016-05-12] MEDS: FERROUS SULFATE 325 MG (65 MG ELEMENTAL IRON) TAB PO SCH ×2 (11:46→20:42)
[2016-05-12] MEDS: ALPRAZolam 0.25 MG TAB PO PRN (16:52)
--- NOTE | 2016-05-12 18:07 | HHI.GIFU ---
Subjective Remarks Patient comfortable in bed still complains of shortness of breath but thinks this is getting better no active bleeding Objective Vitals I&O Vital Signs Date Time Temp Pulse Resp B/P Pulse Ox O2 Delivery O2 Flow Rate FiO2 05/12/16 17:00 100 34 125/51 93 05/12/16 16:00 93 Nasal Cannula 6.00 05/12/16 16:00 106 05/12/16 16:00 99.1 102 30 126/48 92 05/12/16 15:00 106 30 126/48 88 05/12/16 14:00 98 35 119/47 93 05/12/16 14:00 100 05/12/16 13:00 96 33 118/47 91 05/12/16 12:00 94 Nasal Cannula 6.00 05/12/16 12:00 99.5 98 26 137/54 89 05/12/16 12:00 98 05/12/16 11:26 96 Nasal Cannula 5.00 05/12/16 11:00 94 31 132/53 94 05/12/16 10:00 92 4 128/46 94 05/12/16 10:00 90 05/12/16 09:00 86 32 120/55 90 05/12/16 08:03 97 45 05/12/16 08:00 99 Bi-Pap 45 05/12/16 08:00 82 05/12/16 08:00 98.4 90 28 146/66 92 05/12/16 07:00 88 25 140/62 100 05/12/16 06:00 84 27 131/59 93 05/12/16 06:00 84 05/12/16 05:00 87 27 131/59 92 05/12/16 04:15 94 40 05/12/16 04:00 86 05/12/16 04:00 98.6 86 28 142/47 92 05/12/16 04:00 94 Bi-Pap 45 05/12/16 03:00 88 28 144/52 96 05/12/16 02:00 86 27 143/62 94 05/12/16 02:00 86 05/12/16 01:00 92 25 192/71 91 05/12/16 00:45 93 40 05/12/16 00:00 98.1 88 29 119/50 90 05/12/16 00:00 90 Bi-Pap 40 05/12/16 00:00 88 3/13/17 23:00 96 28 97 05/11/16 22:00 96 30 141/63 87 05/11/16 22:00 96 05/11/16 21:06 93 40 05/11/16 21:00 92 22 143/59 93 05/11/16 20:00 89 Nasal Cannula 6.00 05/11/16 20:00 99.7 106 22 150/52 89 05/11/16 20:00 110 05/11/16 19:45 98 Nasal Cannula 4.00 05/11/16 19:00 106 22 159/59 96 I/O 05/11/16 05/11/16 05/11/16 05/12/16 05/12/16 05/12/16 07:00 15:00 23:00 07:00 15:00 23:00 Intake Total 1065 ml 278 ml 128 ml 510 ml Output Total 1300 ml 1300 ml 1350 ml 400 ml 500 ml Balance -1300 ml -235 ml -1072 ml -272 ml 10 ml Intake Oral 960 ml 240 ml 60 ml 480 ml IV Total 105 ml 38 ml 68 ml 30 ml Output Urine Total 1300 ml 1300 ml 1350 ml 400 ml 500 ml Stool Total 0 ml # Voids 5 # Bowel Movements 2 1 2 Laboratory Laboratory Tests Test 05/12/16 04:13 White Blood Count 6.2 Red Blood Count 3.55 Hemoglobin 7.7 Hematocrit 25.2 Mean Corpuscular Volume 71.1 Mean Corpuscular Hemoglobin 21.6 Mean Corpuscular Hemoglobin 30.3 Concent Red Cell Distribution Width 25.1 Platelet Count 206 Mean Platelet Volume 8.5 Neutrophils (%) (Auto) 70.1 Lymphocytes (%) (Auto) 18.8 Monocytes (%) (Auto) 9.9 Eosinophils (%) (Auto) 0.8 Basophils (%) (Auto) 0.4 Neutrophils # (Auto) 4.4 Lymphocytes # (Auto) 1.2 Monocytes # (Auto) 0.6 Eosinophils # (Auto) 0.0 Basophils # (Auto) 0.0 CBC Comment AUTO DIFF Differential Comment AUTO DIFF CONFIRMED Platelet Estimate NORMAL Sodium Level 141 Potassium Level 4.1 Chloride Level 98 Carbon Dioxide Level 37.0 Anion Gap 6 Blood Urea Nitrogen 16 Creatinine 0.85 Estimat Glomerular Filtration 66 Rate Random Glucose 119 Calcium Level 9.4 Date/Time Procedure Status Source Growth 05/10/16 23:30 Gram Stain - Final Complete Sputum Expectorated Sputum 05/10/16 23:30 Sputum Culture - Final Complete Sputum Expectorated Sputum 05/09/16 22:12 Aerobic Blood Culture - Preliminary Resulted Blood Peripheral NO GROWTH IN 3 DAYS 05/09/16 22:12 Anaerobic Blood Culture - Preliminary Resulted Blood Peripheral NO GROWTH IN 3 DAYS Imaging Last Impressions Chest X-Ray 05/11/16 0000 Signed Impressions: Service Date/Time: Wednesday, May 11, 2016 05:22 - CONCLUSION: Chronic cardiac silhouette enlargement. No acute cardiopulmonary disease identified. Feliberto Cast MD Abdomen/Pelvis CT 05/11/16 0000 Signed Impressions: Service Date/Time: Wednesday, May 11, 2016 13:26 - CONCLUSION: 1. No acute abnormality. 2. Nodular thickening involving the left adrenal gland is unchanged. This is poorly characterized on this exam. Phani Villa Jr., MD Physical Exam HEENT: normocephalic NECK: Neck is supple CHEST: Chest is clear to auscultation and percussion decreased airflow. CARDIAC: Regular rate and rhythm with no murmur gallop or rubs. ABDOMEN: Soft, nondistended, nontender; no hepatosplenomegaly; bowel sounds are present in all four quadrants. EXTREMITIES: No clubbing, cyanosis, or edema. SKIN: Normal; no rash; no jaundice. TRIAL JUDGE: No focal deficits; alert and oriented times three. Assessment and Plan Plan ASSESSMENT: -Symptomatic anemia--Hemoccult positive, HH on admission 5.7/18.8, s/p 2u PRBC. HH now 7.6/25.4. 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 -COPD--with continued tobacco use, per primary -DM, per primary -HTN, per primary -CAD, per primary -SAVANNA--uses CPAP, per primary PLAN: -EGD/Colonoscopy when respiratory improves currently not stable -Obtain consents -Clear liquid diet -Monitor HH, transfuse as needed -Continue Protonix -Further recommendations as per hospital course. Sai Rubin MD May 12, 2016 18:07
--- NOTE | 2016-05-12 20:40 | MB ---
cc: TALYA BABIN DATE OF CONSULTATION 05/12/2016 REASON FOR CONSULTATION Chronic obstructive pulmonary disease, respiratory failure, history of obstructive sleep apnea. HISTORY OF THE PRESENT ILLNESS Ms. Nelson is a 75-year-old female with known history of COPD and obstructive sleep apnea, chronic respiratory failure on oxygen therapy. The patient presents with increasing shortness of breath, weakness, poor appetite. On the day of admission she has woken up with severe shortness of breath not relieved by bronchodilator therapy. The patient's hemoglobin upon presentation was at 5.7. The patient was heme-occult positive as well. Plan is for endoscopy were underway, however, because of the patient's significant shortness of breath and increasing hypoxemia this was placed on hold. She denies a history of fever or chills. Her shortness of breath is gradually improving. She has cough, expectoration of thick mucoid whitish secretion. PAST MEDICAL HISTORY Is that of: 1. Chronic obstructive pulmonary disease. 2. Obstructive sleep apnea. 3. Coronary artery disease. 4. Hypertension. 5. Diabetes mellitus. 6. Hyperlipidemia. 7. Congestive heart failure. 8. Mood disorder namely depression. 9. She had a previous tonsillectomy and adenoidectomy. 10. Hysterectomy. 11. Cholecystectomy. 12. Rotator cuff surgery. 13. Bunionectomy. 14. Appendectomy. 15. Ganglion cyst removal. 16. As well as tendon repair on her right hand. MEDICATIONS At home: 1. Symbicort twice a day. 2. As needed albuterol. 3. Lasix. 4. Isosorbide. 5. Toprol. 6. Singulair. 7. Protonix. 8. Spiriva once a day. 9. Oral theophylline 400 milligrams daily. 10. Losartan. 11. Presently on Protonix as well. ALLERGIES CODEINE, PENICILLIN, WELL CRAB. FAMILY HISTORY Positive for coronary artery disease, diabetes, hypertension and breast cancer. SOCIAL HISTORY Smokes for over 50 years, continues to smoke one-half pack of cigarettes a day at the time of presentation. REVIEW OF SYSTEMS Systems review, a 12 point review of systems as per the history of present illness and past history, otherwise negative. PHYSICAL EXAMINATION GENERAL: The patient is alert. VITAL SIGNS: Temperature 98, respiratory rate 20, pulse 90, blood pressure 160/64. HEENT: Unremarkable. Eyes without icterus. NECK: Without adenopathy or thyroid enlargement. Central trachea. CHEST: Without dullness to percussion. Scattered rhonchi on auscultation decreased with cough. CARDIAC: Point of maximal impulse distant. S1, S2 audible. A 1/6 systolic ejection murmur at the left sternal border. ABDOMEN: Lax. Bowel sounds audible. EXTREMITIES: No clubbing, cyanosis or edema. SKIN: Normal. No lymphadenopathy. LABORATORY DATA Labs, INR is 1.1. Sodium 139, potassium 4.5, BUN 22, creatinine 0.9. White count 7.2, hemoglobin 5.7, repeat 7.6. IMAGING A chest x-ray cardiomegaly. No acute infiltrate identified. IMPRESSION 1. Chronic obstructive pulmonary disease and exacerbation. 2. Anemia question possibly GI bleed. 3. Diabetes mellitus. 4. Hypertension. 5. Coronary artery disease. 6. Mood disorder. PLAN The patient will be maintained on oxygen therapy as needed. Her arterial blood gas done 05/11/2016 pH is 7.26, PCO2 is 73 and a PO2 of 87 on 0.35 inspired oxygen fraction and BiPAP therapy and she will be maintained on BiPAP therapy as needed. Bronchodilator therapy, as well as albuterol via nebulization in an attempt to mobilize the secretion. Once stable one may proceed with endoscopy and attempt to identify the source of the patient's GI bleed. I do thank you for asking me to partake in Ms. Nelson's care. Her prognosis is guarded given her multiple medical problems and advanced COPD and hypoxic and hypercarbic respiratory failure. Talya Babin MD WWW/AILEEN /8:15 PM /8:22 PM
[2016-05-12 20:41] LABS: BLOOD GAS BASE EXCESS 5.6 mmol/L (-2-2); BLOOD GAS CARBOXYHEMOGLOBIN 2.3 % (0-4); BLOOD GAS HCO3 31 mmol/L (22-26); BLOOD GAS METHEMOGLOBIN 1.8 % (0-2); BLOOD GAS O2 HGB SATURATION 89 % (90-100); BLOOD GAS OXYGEN CONTENT 9.3 Vol % (12.0-20.0); BLOOD GAS PCO2 60 mmHg (38-42); BLOOD GAS PO2 65 mmHg (61-120); BLOOD GAS TOTAL HGB 7.4 G/DL (12.0-16.0)
[2016-05-12 20:42] LABS: CRITICAL VALUE YES; DRAW SITE LT RADIAL; LITER FLOW 4 L/M; NUMBER OF ARTERIAL PUNCTURES 1; OXYGEN DEVICE NASAL CANNULA; STAT NO; ULNAR PULSE Y
[2016-05-12] MEDS: FENOFIBRATE 145 MG TAB PO SCH (20:42)
[2016-05-12] MEDS: MONTELUKAST SODIUM 10 MG TAB PO SCH (20:43)
[2016-05-12 21:09] LABS: MEAN CORPUSCULAR HGB CONC 29.6 % (32.0-36.0)
[2016-05-13] VITALS (39 sets, daily range): BP systolic 91–137; BP diastolic 44–68; PULSE 76–100; RESP 19–46; TEMP 97.3–98.5; O2SAT 89–99
[2016-05-13] MEDS: RESP: ALBUTEROL 2.5 MG/IPRATROPIUM 0.5 MG NEB (SCH) NEB ×6 (03:36→23:18)
[2016-05-13 04:47] LABS: AUTOMATED NEUTROPHIL # 6.4 TH/MM3 (1.8-7.7); BASOPHIL % 0.1 % (0.0-2.0); EOSINOPHIL % 0.2 % (0.0-4.0); HEMATOCRIT 26.1 % (35.0-46.0); LYMPH % 6.4 % (9.0-44.0); LYMPHOCYTE # 0.4 TH/MM3 (1.0-4.8); MEAN CELL VOLUME 70.8 FL (80.0-100.0); MONO % 2.1 % (0.0-8.0); NEUT % 91.2 % (16.0-70.0); PLATELET COUNT 218 TH/MM3 (150-450); RED BLOOD COUNT 3.68 MIL/MM3 (4.00-5.30); WHITE BLOOD COUNT 6.9 TH/MM3 (4.0-11.0)
[2016-05-13 05:12] LABS: POTASSIUM 4.7 MEQ/L (3.5-5.1)
[2016-05-13 05:15] LABS: BICARBONATE 33.6 MEQ/L (21.0-32.0)
[2016-05-13 05:28] LABS: HEMO FLAGS AUTO DIFF
[2016-05-13 05:35] LABS: MAGNESIUM 1.8 MG/DL (1.5-2.5)
[2016-05-13] MEDS: methylPREDNISolone SOD SUCC 125 MG/2 ML VIAL IV SCH ×4 (05:56→23:15)
[2016-05-13] MEDS: INSULIN ASPART SUPPLEMENTAL SCALE SQ SCH ×4 (06:04→20:14)
[2016-05-13 06:54] LABS: SCAN/DIFF AUTO DIFF CONFIRMED
[2016-05-13] MEDS: BUDESONIDE-FORMOTEROL 160/4.5 MCG INHALER INH SCH (08:38)
[2016-05-13] MEDS: NYSTATIN 100,000 U/GM PWD 15 GM BTL TOPICAL SCH ×2 (08:38→19:53)
[2016-05-13] MEDS: POTASSIUM CHLORIDE 10 MEQ CONTROLLED RELEASE TAB PO SCH ×2 (08:39→19:53)
[2016-05-13] MEDS: NICOTINE 21 MG/24 HR PATCH TD SCH (08:39)
[2016-05-13] MEDS: FERROUS SULFATE 325 MG (65 MG ELEMENTAL IRON) TAB PO SCH ×2 (08:40→19:54)
[2016-05-13] MEDS: DILTIAZEM-CD 240 MG CAP ER PO SCH (08:40)
[2016-05-13] MEDS: LOSARTAN 50 MG TAB PO SCH (08:40)
[2016-05-13] MEDS: THEOPHYLLINE 200 MG EXTENDED RELEASE CAP PO SCH (08:40)
[2016-05-13] MEDS: SERTRALINE HCL 50 MG TAB PO SCH (08:40)
[2016-05-13] MEDS: METOPROLOL SUCCINATE 50 MG EXTENDED RELEASE TAB PO SCH ×2 (08:40→19:54)
[2016-05-13] MEDS: ASCORBIC ACID 500 MG TAB PO SCH (08:40)
[2016-05-13] MEDS: AZITHROMYCIN 250 MG TAB PO SCH (08:40)
[2016-05-13] MEDS: PANTOPRAZOLE SODIUM 40 MG VIAL IV PUSH SCH (08:41)
[2016-05-13] MEDS: FUROSEMIDE 40 MG TAB PO SCH ×2 (08:41→19:54)
[2016-05-13] MEDS: SODIUM CHLORIDE 0.9% FLUSH 5 ML FLUSH FLUSH SCH ×2 (08:44→19:54)
--- NOTE | 2016-05-13 08:47 | HHI.PR ---
Subjective Remarks Patient seen and examined today with Dr. Doll, patient states that her breathing appears to be improving. Patient still with expiratory wheeze. Still required CPAP at night and remains on 4 L nasal cannula. Objective Vitals Vital Signs Date Time Temp Pulse Resp B/P Pulse Ox O2 Delivery O2 Flow Rate FiO2 05/13/16 07:49 95 Nasal Cannula 4.00 05/13/16 06:01 80 05/13/16 06:01 80 28 124/52 93 05/13/16 06:00 94 Nasal Cannula 4.00 05/13/16 05:01 82 05/13/16 05:01 82 19 137/60 95 05/13/16 04:01 82 21 137/58 90 05/13/16 04:00 80 05/13/16 04:00 97 Bi-Pap 40 05/13/16 03:40 94 35 05/13/16 03:00 97.3 80 21 126/54 97 05/13/16 02:00 78 21 123/53 97 05/13/16 02:00 76 05/13/16 01:00 84 25 132/56 99 05/13/16 01:00 95 40 05/13/16 00:00 96 Bi-Pap 40 05/13/16 00:00 98.2 82 21 115/51 95 05/13/16 00:00 90 05/12/16 23:01 90 26 136/54 96 05/12/16 22:40 96 40 05/12/16 22:40 99 Bi-Pap 40 05/12/16 22:19 90 27 127/56 95 05/12/16 22:00 88 05/12/16 21:19 92 27 131/53 89 05/12/16 20:19 98.2 96 37 140/57 92 05/12/16 20:00 92 05/12/16 20:00 99 Nasal Cannula 6.00 05/12/16 19:19 94 34 133/54 92 05/12/16 19:16 93 Nasal Cannula 6.00 05/12/16 18:00 98 28 117/44 96 05/12/16 18:00 104 05/12/16 17:00 100 34 125/51 93 05/12/16 16:00 93 Nasal Cannula 6.00 05/12/16 16:00 106 05/12/16 16:00 99.1 102 30 126/48 92 3/14/17 15:00 106 30 126/48 88 05/12/16 14:00 98 35 119/47 93 05/12/16 14:00 100 05/12/16 13:00 96 33 118/47 91 05/12/16 12:00 94 Nasal Cannula 6.00 05/12/16 12:00 99.5 98 26 137/54 89 05/12/16 12:00 98 05/12/16 11:26 96 Nasal Cannula 5.00 05/12/16 11:00 94 31 132/53 94 05/12/16 10:00 92 4 128/46 94 05/12/16 10:00 90 05/12/16 09:00 86 32 120/55 90 I/O 05/12/16 05/12/16 05/12/16 05/13/16 05/13/16 05/13/16 07:00 15:00 23:00 07:00 15:00 23:00 Intake Total 128 ml 510 ml 360 ml 120 ml Output Total 400 ml 500 ml 500 ml 600 ml Balance -272 ml 10 ml -140 ml -480 ml Intake Oral 60 ml 480 ml 360 ml 120 ml IV Total 68 ml 30 ml Output Urine Total 400 ml 500 ml 500 ml 600 ml Stool Total 0 ml # Bowel Movements 2 Result Diagram: 05/13/16 0413 05/13/16 041 Objective Remarks GENERAL: Well-developed, well-nourished, in no acute distress. alert and orientated HEENT: Head is normocephalic without any lesions or masses noted. Facial features are symmetric. Eyes: Extraocular muscles are intact. Conjunctivae were clear. NECK: Supple without any masses. Trachea midline no deviation. No JVD, CARDIAC: Regular rhythm, regular rate. S1/S2 are heard. No murmurs gallops or rubs. LUNGS: Mild expiratory wheezing. No rhonchi or rales. No use of accessory muscles on inspiration or expiration. ABDOMEN: Soft, nontender. Nondistended. Bowel sounds heard in all 4 quadrants. No organomegaly or masses. Negative rebound, negative guarding EXTREMITIES: No edema, pulses are equal bilaterally. No cyanosis or clubbing NEUROLOGY: Mood and affect appear appropriate. Cranial nerves II through XII grossly intact. Moving all extremities, speech is clear Urinary Catheter: No Assessment to: Continue Alexander insert reason: Measure Accurate Output Vascular Central Line Catheter: No A/P Assessment and Plan Acute hypoxic respiratory failure in a patient with chronic respiratory failure oxygen dependent secondary to COPD exacerbation: Continue O2 supplementation to maintain O2 sats greater than 92%. Continue BiPAP as needed. Continue nebulizer every 4 hours and as needed, Symbicort, Zithromax, Spiriva. Solu- Medrol 60 mg every 6 hours. Pulmonology following the patient. GI bleed with symptomatic anemia: Gastroenterology has evaluated patient and is deferring endoscopies to respiratory status has been stabilized. Continue Protonix IV twice daily, Monitor H&H and transfuse accordingly, status post transfusion 2 units packed red blood cells. Iron studies to indicate iron deficient anemia. Continue ferrous sulfate/vitamin C Skin rash in inguinal folds, under breasts: Likely fungal in nature. Will use nystatin powder. Diabetes: Hold her metformin and continue with insulin sliding scale, continue diabetic diet Hypertension: Home medications have been continued Coronary artery disease, recent myocardial infarction, chronic diastolic congestive heart failure: Alexander catheter is in place to monitor accurate input and output. Avoid fluid overload. Home medications have been continued. Depression/anxiety: Home medications were continued DVT prophylaxis: Chemoprophylaxis contraindicated due to active bleed, SCD/ARIN hose Written by Hector Richmond PA-C, acting as scribe for Dr. Doll on 05/13/16 at 1230. The documentation accurately reflects the work and decisions performed face-to- face by Dr. Doll on 05/13/16 at 1230. Hector Richmond May 13, 2016 08:47
[2016-05-13] MEDS: MENTHOL LOZENGE SUCK-ON PRN (09:11)
[2016-05-13] MEDS: TIOTROPIUM BROMIDE 18 MCG INH INH SCH (09:21)
[2016-05-13] MEDS: guaiFENesin E.R. 600 MG TAB PO SCH ×2 (09:21→19:54)
[2016-05-13] MEDS: ALPRAZolam 0.25 MG TAB PO PRN (13:25)
[2016-05-13 15:54] LABS: IGA SERUM 219 mg/dL (81-463); TISSUE TRANSGLUTAMINASE AB IGG ND U/mL (())
[2016-05-13] MEDS: FENOFIBRATE 145 MG TAB PO SCH (19:53)
[2016-05-13] MEDS: MONTELUKAST SODIUM 10 MG TAB PO SCH (19:54)
[2016-05-13] MEDS: REMOVE OLD NICODERM (NICOTINE) PATCH TD SCH (19:55)
--- NOTE | 2016-05-13 20:09 | HHI.GIFU ---
Subjective Remarks Comfortable in her chair but still having some shortness of breath and coughing Objective Vitals I&O Vital Signs Date Time Temp Pulse Resp B/P Pulse Ox O2 Delivery O2 Flow Rate FiO2 05/13/16 19:19 84 46 121/44 95 05/13/16 19:10 92 Nasal Cannula 6.00 05/13/16 19:00 86 33 93 05/13/16 18:20 81 05/13/16 18:00 88 32 119/48 92 05/13/16 17:00 94 34 137/58 89 05/13/16 16:45 81 05/13/16 16:45 91 Nasal Cannula 2.00 05/13/16 16:00 98.5 92 34 133/48 93 05/13/16 15:29 95 Nasal Cannula 3.00 05/13/16 15:00 80 24 119/47 95 05/13/16 14:18 78 05/13/16 14:00 82 25 118/44 90 05/13/16 13:29 96 35 05/13/16 13:13 92 43 129/52 92 05/13/16 13:00 92 43 129/52 92 05/13/16 12:30 92 Nasal Cannula 3.00 05/13/16 12:30 80 05/13/16 12:00 97.9 100 45 91/50 91 05/13/16 11:00 86 21 125/51 96 05/13/16 10:30 77 05/13/16 10:00 88 37 133/50 91 05/13/16 09:00 90 31 128/58 91 05/13/16 08:35 98.1 92 34 133/68 91 05/13/16 08:00 82 05/13/16 08:00 94 Nasal Cannula 4.00 05/13/16 07:49 95 Nasal Cannula 4.00 05/13/16 07:01 86 40 119/53 94 05/13/16 06:01 80 05/13/16 06:01 80 28 124/52 93 05/13/16 06:00 94 Nasal Cannula 4.00 05/13/16 05:01 82 05/13/16 05:01 82 19 137/60 95 05/13/16 04:01 82 21 137/58 90 05/13/16 04:00 80 05/13/16 04:00 97 Bi-Pap 40 05/13/16 03:40 94 35 05/13/16 03:00 97.3 80 21 126/54 97 05/13/16 02:00 78 21 123/53 97 05/13/16 02:00 76 05/13/16 01:00 84 25 132/56 99 05/13/16 01:00 95 40 05/13/16 00:00 96 Bi-Pap 40 05/13/16 00:00 98.2 82 21 115/51 95 05/13/16 00:00 90 05/12/16 23:01 90 26 136/54 96 05/12/16 22:40 96 40 05/12/16 22:40 99 Bi-Pap 40 05/12/16 22:19 90 27 127/56 95 05/12/16 22:00 88 05/12/16 21:19 92 27 131/53 89 05/12/16 20:19 98.2 96 37 140/57 92 I/O 05/12/16 05/12/16 05/12/16 05/13/16 05/13/16 05/13/16 07:00 15:00 23:00 07:00 15:00 23:00 Intake Total 128 ml 510 ml 360 ml 120 ml 820 ml Output Total 400 ml 500 ml 500 ml 600 ml 700 ml 700 ml Balance -272 ml 10 ml -140 ml -480 ml 120 ml -700 ml Intake Oral 60 ml 480 ml 360 ml 120 ml 800 ml IV Total 68 ml 30 ml 20 ml Output Urine Total 400 ml 500 ml 500 ml 600 ml 700 ml 700 ml Stool Total 0 ml # Bowel Movements 2 1 Laboratory Laboratory Tests Test 05/12/16 05/13/16 20:35 04:13 Blood Gas Puncture Site LT RADIAL Blood Gas Patient Temperature 37.0 Blood Gas HCO3 31 Blood Gas Base Excess 5.6 Blood Gas Oxygen Saturation 89 Arterial Blood pH 7.34 Arterial Blood Partial 60 Pressure CO2 Arterial Blood Partial 65 Pressure O2 Arterial Blood Oxygen Content 9.3 Arterial Blood 2.3 Carboxyhemoglobin Arterial Blood Methemoglobin 1.8 Blood Gas Hemoglobin 7.4 Oxygen Delivery Device NASAL CANNULA Blood Gas Liter Flow 4 White Blood Count 6.9 Red Blood Count 3.68 Hemoglobin 7.7 Hematocrit 26.1 Mean Corpuscular Volume 70.8 Mean Corpuscular Hemoglobin 21.0 Mean Corpuscular Hemoglobin 29.6 Concent Red Cell Distribution Width 25.0 Platelet Count 218 Mean Platelet Volume 8.2 Neutrophils (%) (Auto) 91.2 Lymphocytes (%) (Auto) 6.4 Monocytes (%) (Auto) 2.1 Eosinophils (%) (Auto) 0.2 Basophils (%) (Auto) 0.1 Neutrophils # (Auto) 6.4 Lymphocytes # (Auto) 0.4 Monocytes # (Auto) 0.1 Eosinophils # (Auto) 0.0 Basophils # (Auto) 0.0 CBC Comment AUTO DIFF Differential Comment AUTO DIFF CONFIRMED Sodium Level 137 Potassium Level 4.7 Chloride Level 96 Carbon Dioxide Level 33.6 Anion Gap 7 Blood Urea Nitrogen 26 Creatinine 1.10 Estimat Glomerular Filtration 49 Rate Random Glucose 244 Calcium Level 9.8 Magnesium Level 1.8 Date/Time Procedure Status Source Growth 05/10/16 23:30 Gram Stain - Final Complete Sputum Expectorated Sputum 05/10/16 23:30 Sputum Culture - Final Complete Sputum Expectorated Sputum 05/09/16 22:12 Aerobic Blood Culture - Preliminary Resulted Blood Peripheral NO GROWTH IN 4 DAYS 05/09/16 22:12 Anaerobic Blood Culture - Preliminary Resulted Blood Peripheral NO GROWTH IN 4 DAYS Physical Exam HEENT: normocephalic NECK: Neck is supple CHEST: Some rhonchi decreased airflow. CARDIAC: Regular rate and rhythm with no murmur gallop or rubs. ABDOMEN: Soft, nondistended, nontender; no hepatosplenomegaly; bowel sounds are present in all four quadrants. EXTREMITIES: No clubbing, cyanosis, or edema. SKIN: Normal; no rash; no jaundice. 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 Assessment and Plan Plan ASSESSMENT: -Symptomatic anemia--Hemoccult positive, HH on admission 5.7/18.8, s/p 2u PRBC. HH stable. 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 -COPD--with continued tobacco use, per primary -DM, per primary -HTN, per primary -CAD, per primary -SAVANNA--uses CPAP, per primary PLAN: -EGD/Colonoscopy when respiratory improves currently not stable respiratory [place] -Obtain consents -Clear liquid diet -Monitor HH, transfuse as needed -Continue Protonix -Further recommendations as per hospital course. Sai Rubin MD May 13, 2016 20:09
[2016-05-14] VITALS (32 sets, daily range): BP systolic 107–158; BP diastolic 42–80; PULSE 70–96; RESP 20–39; TEMP 97.4–98.3; O2SAT 91–99
[2016-05-14] MEDS: RESP: ALBUTEROL 2.5 MG/IPRATROPIUM 0.5 MG NEB (SCH) NEB ×6 (03:53→23:37)
[2016-05-14 05:23] LABS: AUTOMATED NEUTROPHIL # 10.2 TH/MM3 (1.8-7.7); BASOPHIL % 0.1 % (0.0-2.0); EOSINOPHIL # 0.1 TH/MM3 (0-0.4); EOSINOPHIL % 0.9 % (0.0-4.0); HEMATOCRIT 25.1 % (35.0-46.0); LYMPH % 4.2 % (9.0-44.0); LYMPHOCYTE # 0.5 TH/MM3 (1.0-4.8); MEAN CELL VOLUME 71.7 FL (80.0-100.0); MEAN CORPUSCULAR HEMOGLOBIN 21.9 PG (27.0-34.0); MEAN CORPUSCULAR HGB CONC 30.6 % (32.0-36.0); MONO % 2.4 % (0.0-8.0); NEUT % 92.4 % (16.0-70.0); PLATELET COUNT 205 TH/MM3 (150-450); RED CELL DISTRIBUTION WIDTH 25.5 % (11.6-17.2); WHITE BLOOD COUNT 11.1 TH/MM3 (4.0-11.0)
[2016-05-14 05:35] LABS: POTASSIUM 4.5 MEQ/L (3.5-5.1)
[2016-05-14 05:36] LABS: HEMO FLAGS AUTO DIFF
[2016-05-14 05:39] LABS: MAGNESIUM 1.8 MG/DL (1.5-2.5)
[2016-05-14] MEDS: ISOSORBIDE MONONITRATE 30 MG TAB PO SCH (06:00)
[2016-05-14] MEDS: methylPREDNISolone SOD SUCC 125 MG/2 ML VIAL IV SCH ×4 (06:00→23:01)
[2016-05-14] MEDS: INSULIN ASPART SUPPLEMENTAL SCALE SQ SCH ×4 (06:11→22:30)
[2016-05-14 06:29] LABS: OVALOCYTES 1+ (NORMAL); TEARDROP RBCS 1+ (NORMAL)
[2016-05-14 06:30] LABS: PLATELET ESTIMATE SMEAR NORMAL (NORMAL); PLATELET MORPHOLOGY NORMAL (NORMAL); SCAN/DIFF FINAL DIFF MANUAL; STOMATOCYTES 1+ (NORMAL)
[2016-05-14] MEDS: DILTIAZEM-CD 240 MG CAP ER PO SCH (08:24)
[2016-05-14] MEDS: BUDESONIDE-FORMOTEROL 160/4.5 MCG INHALER INH SCH (08:24)
[2016-05-14] MEDS: SERTRALINE HCL 50 MG TAB PO SCH (08:26)
[2016-05-14] MEDS: THEOPHYLLINE 200 MG EXTENDED RELEASE CAP PO SCH (08:26)
[2016-05-14] MEDS: POTASSIUM CHLORIDE 10 MEQ CONTROLLED RELEASE TAB PO SCH ×2 (08:27→20:15)
[2016-05-14] MEDS: FUROSEMIDE 40 MG TAB PO SCH ×2 (08:27→17:43)
[2016-05-14] MEDS: METOPROLOL SUCCINATE 50 MG EXTENDED RELEASE TAB PO SCH ×2 (08:34→20:15)
[2016-05-14] MEDS: guaiFENesin E.R. 600 MG TAB PO SCH ×2 (08:34→20:16)
[2016-05-14] MEDS: LOSARTAN 50 MG TAB PO SCH (08:34)
[2016-05-14] MEDS: NICOTINE 21 MG/24 HR PATCH TD SCH (08:35)
[2016-05-14] MEDS: ASCORBIC ACID 500 MG TAB PO SCH (08:35)
[2016-05-14] MEDS: SODIUM CHLORIDE 0.9% FLUSH 5 ML FLUSH FLUSH SCH ×2 (08:38→20:15)
[2016-05-14] MEDS: FERROUS SULFATE 325 MG (65 MG ELEMENTAL IRON) TAB PO SCH ×2 (08:40→20:15)
[2016-05-14] MEDS: AZITHROMYCIN 250 MG TAB PO SCH (08:42)
[2016-05-14] MEDS: NYSTATIN 100,000 U/GM PWD 15 GM BTL TOPICAL SCH ×2 (08:49→22:31)
[2016-05-14] MEDS: TIOTROPIUM BROMIDE 18 MCG INH INH SCH (09:00)
[2016-05-14] MEDS: PANTOPRAZOLE SODIUM 40 MG VIAL IV PUSH SCH (10:00)
[2016-05-14 13:51] LABS: ENDOMYSIAL AB TITER ND (<1:5); TISSUE TRANSGLUTAMINASE AB LESS THAN 1 U/mL (())
--- NOTE | 2016-05-14 14:48 | HHI.PR ---
Subjective Remarks Patient seen and examined today with Dr. Montilla. Patient states that her respiratory status has improved significantly. Patient is on 3 L nasal cannula. Able to speak full sentences without stopping. Wheezing has significantly improved. Patient respiratory status has significantly improved. Patient is stable enough to undergo endoscopy at this time. Will contact GI for recommendations and possible procedure Objective Vitals Vital Signs Date Time Temp Pulse Resp B/P Pulse Ox O2 Delivery O2 Flow Rate FiO2 05/14/16 12:01 90 35 137/51 95 05/14/16 12:01 90 05/14/16 12:00 92 Nasal Cannula 3.00 Humidified 05/14/16 11:33 95 Nasal Cannula 3.00 05/14/16 11:01 78 24 127/49 94 05/14/16 11:01 78 05/14/16 10:01 78 25 113/43 92 05/14/16 10:01 78 25 113/43 92 05/14/16 10:01 78 05/14/16 10:00 78 05/14/16 09:01 86 26 127/56 92 05/14/16 08:01 84 31 133/51 93 05/14/16 08:00 94 Nasal Cannula 3.00 Humidified 05/14/16 08:00 84 05/14/16 07:09 97 35 05/14/16 07:01 70 21 107/42 97 05/14/16 06:00 82 27 132/49 95 05/14/16 06:00 82 05/14/16 05:00 78 21 110/43 95 05/14/16 04:04 99 35 05/14/16 04:00 78 05/14/16 04:00 97.4 78 20 125/46 95 05/14/16 04:00 95 Bi-Pap 35 05/14/16 03:01 80 22 120/50 92 05/14/16 02:01 86 21 130/55 93 05/14/16 02:00 84 05/14/16 01:01 86 23 122/48 92 05/14/16 00:00 92 Bi-Pap 35 05/14/16 00:00 97.4 90 24 112/44 92 05/14/16 00:00 90 05/13/16 23:31 94 35 05/13/16 23:00 92 28 116/46 93 05/13/16 22:00 92 05/13/16 22:00 92 34 131/52 95 05/13/16 21:00 92 34 131/61 93 05/13/16 20:00 97.6 90 33 130/53 91 05/13/16 20:00 93 Nasal Cannula 4.00 Humidified 05/13/16 20:00 90 05/13/16 19:19 84 46 121/44 95 05/13/16 19:10 92 Nasal Cannula 6.00 05/13/16 19:00 86 33 93 05/13/16 18:20 81 05/13/16 18:00 88 32 119/48 92 05/13/16 17:00 94 34 137/58 89 05/13/16 16:45 81 05/13/16 16:45 91 Nasal Cannula 2.00 05/13/16 16:00 98.5 92 34 133/48 93 05/13/16 15:29 95 Nasal Cannula 3.00 05/13/16 15:00 80 24 119/47 95 I/O 05/13/16 05/13/16 05/13/16 05/14/16 05/14/16 05/14/16 06:59 14:59 22:59 06:59 14:59 22:59 Intake Total 120 ml 820 ml 480 ml 120 ml Output Total 600 ml 700 ml 1300 ml 800 ml Balance -480 ml 120 ml -820 ml -680 ml Intake Oral 120 ml 800 ml 480 ml 120 ml IV Total 20 ml Output Urine Total 600 ml 700 ml 1300 ml 800 ml # Bowel Movements 1 0 0 Result Diagram: 05/14/1642005/14/16420 Objective Remarks GENERAL: Well-developed, well-nourished, in no acute distress. alert and orientated HEENT: Head is normocephalic without any lesions or masses noted. Facial features are symmetric. Eyes: Extraocular muscles are intact. Conjunctivae were clear. NECK: Supple without any masses. Trachea midline no deviation. No JVD, CARDIAC: Regular rhythm, regular rate. S1/S2 are heard. No murmurs gallops or rubs. LUNGS: Mild expiratory wheezing. No rhonchi or rales. No use of accessory muscles on inspiration or expiration. Able to speak full sentences. ABDOMEN: Soft, nontender. Nondistended. Bowel sounds heard in all 4 quadrants. No organomegaly or masses. Negative rebound, negative guarding EXTREMITIES: No edema, pulses are equal bilaterally. No cyanosis or clubbing NEUROLOGY: Mood and affect appear appropriate. Cranial nerves II through XII grossly intact. Moving all extremities, speech is clear Urinary Catheter: No Vascular Central Line Catheter: No A/P Assessment and Plan Acute hypoxic respiratory failure in a patient with chronic respiratory failure oxygen dependent secondary to COPD exacerbation: Continue O2 supplementation to maintain O2 sats greater than 92%. Continue BiPAP as needed. Continue nebulizer every 4 hours and as needed, Symbicort, Zithromax, Spiriva. Solu- Medrol 60 mg every 6 hours will convert to prednisone 40 mg by mouth twice daily. Pulmonology following the patient. GI bleed with symptomatic anemia: Gastroenterology has evaluated patient and is deferring endoscopies to respiratory status has been stabilized. Continue Protonix IV twice daily, Monitor H&H and transfuse accordingly, status post transfusion 2 units packed red blood cells. Iron studies to indicate iron deficient anemia. Continue ferrous sulfate/vitamin C Skin rash in inguinal folds, under breasts: Likely fungal in nature. Will use nystatin powder. Diabetes: Hold her metformin and continue with insulin sliding scale, continue diabetic diet Hypertension: Home medications have been continued Coronary artery disease, recent myocardial infarction, chronic diastolic congestive heart failure: Discontinue Alexander catheter. Avoid fluid overload. Home medications have been continued. Depression/anxiety: Home medications were continued DVT prophylaxis: Chemoprophylaxis contraindicated due to active bleed, SCD/ARIN hose Written by Hector Richmond PA-C, acting as scribe for Dr. Montilla on 05/14/16 at 1445. The documentation accurately reflects the work and decisions performed face-to- face by Dr. Montilla on 05/14/16 at 1445. Hector Richmond May 14, 2016 14:48 Abimael Montilla MD May 14, 2016 15:14
--- NOTE | 2016-05-14 14:52 | HHI.PR ---
Subjective Remarks less sob up in chair on O2 nc Objective Vital Signs Date Time Temp Pulse Resp B/P Pulse Ox O2 Delivery O2 Flow Rate FiO2 05/14/16 12:01 90 35 137/51 95 05/14/16 12:01 90 05/14/16 12:00 92 Nasal Cannula 3.00 Humidified 05/14/16 11:33 95 Nasal Cannula 3.00 05/14/16 11:01 78 24 127/49 94 05/14/16 11:01 78 05/14/16 10:01 78 25 113/43 92 05/14/16 10:01 78 25 113/43 92 05/14/16 10:01 78 05/14/16 10:00 78 05/14/16 09:01 86 26 127/56 92 05/14/16 08:01 84 31 133/51 93 05/14/16 08:00 94 Nasal Cannula 3.00 Humidified 05/14/16 08:00 84 05/14/16 07:09 97 35 05/14/16 07:01 70 21 107/42 97 05/14/16 06:00 82 27 132/49 95 05/14/16 06:00 82 05/14/16 05:00 78 21 110/43 95 05/14/16 04:04 99 35 05/14/16 04:00 78 05/14/16 04:00 97.4 78 20 125/46 95 05/14/16 04:00 95 Bi-Pap 35 05/14/16 03:01 80 22 120/50 92 05/14/16 02:01 86 21 130/55 93 05/14/16 02:00 84 05/14/16 01:01 86 23 122/48 92 05/14/16 00:00 92 Bi-Pap 35 05/14/16 00:00 97.4 90 24 112/44 92 05/14/16 00:00 90 05/13/16 23:31 94 35 05/13/16 23:00 92 28 116/46 93 05/13/16 22:00 92 05/13/16 22:00 92 34 131/52 95 05/13/16 21:00 92 34 131/61 93 05/13/16 20:00 97.6 90 33 130/53 91 05/13/16 20:00 93 Nasal Cannula 4.00 Humidified 05/13/16 20:00 90 05/13/16 19:19 84 46 121/44 95 05/13/16 19:10 92 Nasal Cannula 6.00 05/13/16 19:00 86 33 93 05/13/16 18:20 81 05/13/16 18:00 88 32 119/48 92 05/13/16 17:00 94 34 137/58 89 05/13/16 16:45 81 05/13/16 16:45 91 Nasal Cannula 2.00 05/13/16 16:00 98.5 92 34 133/48 93 05/13/16 15:29 95 Nasal Cannula 3.00 05/13/16 15:00 80 24 119/47 95 I/O 05/13/16 05/13/16 05/13/16 05/14/16 05/14/16 05/14/16 07:00 15:00 23:00 07:00 15:00 23:00 Intake Total 120 ml 820 ml 480 ml 120 ml Output Total 600 ml 700 ml 1300 ml 800 ml Balance -480 ml 120 ml -820 ml -680 ml Intake Oral 120 ml 800 ml 480 ml 120 ml IV Total 20 ml Output Urine Total 600 ml 700 ml 1300 ml 800 ml # Bowel Movements 1 0 0 Result Diagram: 05/14/1642005/14/16420 Objective Remarks GENERAL: SKIN: Warm and dry. HEAD: Atraumatic. Normocephalic. EYES: Pupils equal and round. No scleral icterus. No injection or drainage. ENT: No nasal bleeding or discharge. Mucous membranes pink and moist. NECK: Trachea midline. No JVD. CARDIOVASCULAR: Regular rate and rhythm. RESPIRATORY: No accessory muscle use. Clear to auscultation. Breath sounds equal bilaterally. GASTROINTESTINAL: Abdomen soft, non-tender, nondistended. Hepatic and splenic margins not palpable. MUSCULOSKELETAL: Extremities without clubbing, cyanosis, or edema. No obvious deformities. NEUROLOGICAL: Awake and alert. No obvious cranial nerve deficits. Motor grossly within normal limits. Five out of 5 muscle strength in the arms and legs. Normal speech. PSYCHIATRIC: Appropriate mood and affect; insight and judgment normal. Assessment and Plan Assessment and Plan COPD EXACERBATON , IMPROVING SAVANNA ON CPAP RESPIRATORY FAILURE ON O2 THERAPY PLAN CONTINUE O2 BRONCHODILATORS CPAP INCREASE ACTIVITY Talya Babin MD May 14, 2016 14:52
[2016-05-14] MEDS ORDERED: PEG (High)/E-LYTE SOLN 4000 ML BTL PO ONE (16:00)
[2016-05-14] MEDS: MONTELUKAST SODIUM 10 MG TAB PO SCH (20:15)
[2016-05-14] MEDS: FENOFIBRATE 145 MG TAB PO SCH (20:16)
[2016-05-14] MEDS: REMOVE OLD NICODERM (NICOTINE) PATCH TD SCH (20:16)
[2016-05-14] MEDS: MENTHOL LOZENGE SUCK-ON PRN (20:20)
--- NOTE | 2016-05-14 20:44 | HHI.GIFU ---
Subjective Remarks Patient sitting in chair comfortable shortness of breath improved requiring less oxygen and she is having less coughing Objective Vitals I&O Vital Signs Date Time Temp Pulse Resp B/P Pulse Ox O2 Delivery O2 Flow Rate FiO2 05/14/16 19:27 94 Nasal Cannula 3.00 05/14/16 19:01 84 24 144/57 94 05/14/16 18:01 98.0 90 32 144/54 95 05/14/16 18:00 88 05/14/16 17:01 94 30 148/56 95 05/14/16 16:01 92 29 121/48 91 05/14/16 16:00 92 05/14/16 16:00 96 Nasal Cannula 3.00 Humidified 05/14/16 15:01 90 39 136/47 91 05/14/16 14:01 98.1 88 24 119/50 91 05/14/16 14:00 88 05/14/16 13:01 90 30 113/80 93 05/14/16 12:01 90 35 137/51 95 05/14/16 12:01 90 05/14/16 12:00 92 Nasal Cannula 3.00 Humidified 05/14/16 11:33 95 Nasal Cannula 3.00 05/14/16 11:01 78 24 127/49 94 05/14/16 11:01 78 05/14/16 10:01 78 25 113/43 92 05/14/16 10:01 78 25 113/43 92 05/14/16 10:01 78 05/14/16 10:00 78 05/14/16 09:01 86 26 127/56 92 05/14/16 08:01 84 31 133/51 93 05/14/16 08:00 94 Nasal Cannula 3.00 Humidified 05/14/16 08:00 84 05/14/16 07:09 97 35 05/14/16 07:01 70 21 107/42 97 05/14/16 06:00 82 27 132/49 95 05/14/16 06:00 82 05/14/16 05:00 78 21 110/43 95 05/14/16 04:04 99 35 05/14/16 04:00 78 05/14/16 04:00 97.4 78 20 125/46 95 05/14/16 04:00 95 Bi-Pap 35 05/14/16 03:01 80 22 120/50 92 05/14/16 02:01 86 21 130/55 93 05/14/16 02:00 84 05/14/16 01:01 86 23 122/48 92 05/14/16 00:00 92 Bi-Pap 35 05/14/16 00:00 97.4 90 24 112/44 92 05/14/16 00:00 90 05/13/16 23:31 94 35 05/13/16 23:00 92 28 116/46 93 05/13/16 22:00 92 05/13/16 22:00 92 34 131/52 95 05/13/16 21:00 92 34 131/61 93 I/O 05/13/16 05/13/16 05/13/16 05/14/16 05/14/16 05/14/16 07:00 15:00 23:00 07:00 15:00 23:00 Intake Total 120 ml 820 ml 480 ml 120 ml 560 ml Output Total 600 ml 700 ml 1300 ml 800 ml 1620 ml Balance -480 ml 120 ml -820 ml -680 ml -1060 ml Intake Oral 120 ml 800 ml 480 ml 120 ml 540 ml IV Total 20 ml 20 ml Output Urine Total 600 ml 700 ml 1300 ml 800 ml 1620 ml # Bowel Movements 1 0 0 1 Laboratory Laboratory Tests Test 05/14/16 04:21 White Blood Count 11.1 Red Blood Count 3.50 Hemoglobin 7.7 Hematocrit 25.1 Mean Corpuscular Volume 71.7 Mean Corpuscular Hemoglobin 21.9 Mean Corpuscular Hemoglobin 30.6 Concent Red Cell Distribution Width 25.5 Platelet Count 205 Mean Platelet Volume 8.4 Neutrophils (%) (Auto) 92.4 Lymphocytes (%) (Auto) 4.2 Monocytes (%) (Auto) 2.4 Eosinophils (%) (Auto) 0.9 Basophils (%) (Auto) 0.1 Neutrophils # (Auto) 10.2 Lymphocytes # (Auto) 0.5 Monocytes # (Auto) 0.3 Eosinophils # (Auto) 0.1 Basophils # (Auto) 0.0 CBC Comment AUTO DIFF Differential Comment FINAL DIFF MANUAL Platelet Estimate NORMAL Platelet Morphology Comment NORMAL Tear Drop Cells 1+ Ovalocytes 1+ Stomatocytes 1+ Sodium Level 137 Potassium Level 4.5 Chloride Level 95 Carbon Dioxide Level 34.0 Anion Gap 8 Blood Urea Nitrogen 35 Creatinine 1.10 Estimat Glomerular Filtration 49 Rate Random Glucose 265 Calcium Level 10.1 Magnesium Level 1.8 Date/Time Procedure Status Source Growth 05/10/16 23:30 Gram Stain - Final Complete Sputum Expectorated Sputum 05/10/16 23:30 Sputum Culture - Final Complete Sputum Expectorated Sputum 05/09/16 22:12 Aerobic Blood Culture - Final Complete Blood Peripheral NO GROWTH IN 5 DAYS 05/09/16 22:12 Anaerobic Blood Culture - Final Complete Blood Peripheral NO GROWTH IN 5 DAYS Physical Exam HEENT: normocephalic NECK: Neck is supple CHEST: Some rhonchi decreased airflow. CARDIAC: Regular rate and rhythm with no murmur gallop or rubs. ABDOMEN: Soft, nondistended, nontender; no hepatosplenomegaly; bowel sounds are present in all four quadrants. EXTREMITIES: No clubbing, cyanosis, or edema. SKIN: Normal; no rash; no jaundice. 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 Assessment and Plan Plan ASSESSMENT: -Symptomatic anemia--Hemoccult positive, HH on admission 5.7/18.8, s/p 2u PRBC. HH stable. 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 -COPD--with continued tobacco use, per primary -DM, per primary -HTN, per primary -CAD, per primary -SAVANNA--uses CPAP, per primary PLAN: -EGD/Colonoscopy tomorrow -Obtain consents -Clear liquid diet -Monitor HH, transfuse as needed -Continue Protonix -Further recommendations as per hospital course. Sai Rubin MD May 14, 2016 20:43
[2016-05-14] MEDS: SODIUM CHLORIDE 0.9% FLUSH 5 ML FLUSH FLUSH PRN (23:01)
[2016-05-15] VITALS (8 sets, daily range): BP systolic 139–154; BP diastolic 67–80; PULSE 81–97; RESP 18–21; TEMP 95.2–98.7; O2SAT 94–97
[2016-05-15] MEDS: RESP: ALBUTEROL 2.5 MG/IPRATROPIUM 0.5 MG NEB (SCH) NEB ×3 (03:46→10:37)
[2016-05-15] MEDS: INSULIN ASPART SUPPLEMENTAL SCALE SQ SCH ×4 (06:02→20:26)
[2016-05-15] MEDS: SODIUM CHLORIDE 0.9% FLUSH 5 ML FLUSH FLUSH PRN (06:04)
[2016-05-15] MEDS: methylPREDNISolone SOD SUCC 125 MG/2 ML VIAL IV SCH ×3 (06:04→20:20)
[2016-05-15] MEDS: ISOSORBIDE MONONITRATE 30 MG TAB PO SCH (06:05)
[2016-05-15 06:18] LABS: POTASSIUM 3.9 MEQ/L (3.5-5.1)
[2016-05-15 06:21] LABS: BICARBONATE 35.3 MEQ/L (21.0-32.0)
[2016-05-15] MEDS ORDERED: PROPOFOL 200 MG/20 ML AMP IV ONE (07:09)
--- NOTE | 2016-05-15 07:51 | GIPROC ---
[facility] [address] [place] [address], [id number] EGD PROCEDURE REPORT EXAM DATE: 05/15/2016 PATIENT NAME: Daiana Nelson MR #: [id number] BIRTHDATE: 1940 ATTENDING: Sai Rubin MD ORDER #: [id number] DREDGE MASTER: Manas Mejia and Perlita Lopez STATUS: inpatient INDICATIONS: The patient is a 75 yr old female here for an EGD due to anemia PROCEDURE PERFORMED: EGD, diagnostic MEDICATIONS: None and Per Anesthesia. TOPICAL ANESTHETIC: CONSENT: The patient understands the risks and benefits of the procedure and understands that these risks include, but are not limited to: sedation, allergic reaction, infection, perforation and/or bleeding. Alternative means of evaluation and treatment include, among others: physical exam, x-rays, and/or surgical intervention. The patient elects to proceed with this endoscopic procedure. medical equipment was checked for proper function. Hand hygiene and appropriate measures for infection prevention was taken. After the risks, benefits and alternatives of the procedure were thoroughly explained, Informed consent was verified, confirmed and timeout was successfully executed by the treatment team. The patient was anesthetized with topical anesthesia and the EC-[id number] (Pedi C) endoscope was introduced through the mouth and advanced to the second portion of the duodenum. Retroflexed views revealed no abnormalities The gastroscope was then slowly withdrawn and removed. ESOPHAGUS: The mucosa of the esophagus appeared normal. STOMACH: The mucosa of the stomach appeared normal. DUODENUM: The duodenal mucosa appeared normal. ADVERSE EVENTS: There were no complications. IMPRESSIONS: 1. The esophagus appeared normal 2. The mucosa of the stomach appeared normal 3. Normal duodenal mucosa 4. Retroflexed views revealed no abnormalities RECOMMENDATIONS: 1. Follow-up: GI clinic PRN 2. Avoid NSAIDS PATIENT CONDITION: stable DISPOSITION: Inpatient REPEAT EXAM: Sai Rubin MD eSigned: Sai Rubin MD 05/15/2016 7:51 AM cc: [id number]
--- NOTE | 2016-05-15 08:00 | GIPROC ---
[facility] [address] [place] [address], [id number] COLONOSCOPY PROCEDURE REPORT EXAM DATE: 05/15/2016 PATIENT NAME: Daiana Nelson MR #: [id number] BIRTHDATE: 1940 ENDOSCOPIST: Sai Rubin MD ORDER #: [id number] PONY ROUGHER: Manas Mejia and Perlita Lopez STATUS: inpatient INDICATIONS: The patient is a 75 yr old female here for a colonoscopy due to anemia, non-specific PROCEDURE PERFORMED: Colonoscopy with polypectomy Submucosal injection, any substance MEDICATIONS: None and Per Anesthesia. PREP QUALITY: poor ESTIMATED BLOOD LOSS: None CONSENT: The patient understands the risks and benefits of the procedure and understands that these risks include, but are not limited to: sedation, allergic reaction, infection, perforation and/or bleeding. Alternative means of evaluation and treatment include, among others: physical exam, x-rays, and/or surgical intervention. The patient elects to proceed with this endoscopic procedure. medical equipment was checked for proper function. Hand hygiene and appropriate measures for infection prevention was taken. After the risks, benefits and alternatives of the procedure were thoroughly explained, Informed consent was verified, confirmed and timeout was successfully executed by the treatment team. A digital exam revealed no abnormalities of the rectum The Pentax [id number] endoscope was introduced through the anus and advanced to the cecum, which was identified by both the appendix and ileocecal valve. The instrument was then slowly withdrawn as the colon was fully examined. COLON FINDINGS: Five medium sized large sessile polyps with friable surfaces were found at the hepatic flexure, in the transverse colon, and sigmoid colon. A polypectomy was performed using snare cautery. The resection was complete and the polyp tissue was completely retrieved. Mild diverticulosis was noted in the sigmoid colon. The colon mucosa was otherwise normal. Retroflexed views revealed no abnormalities The scope was then completely withdrawn from the patient and the procedure terminated. PROCEDURE WITHDRAWAL TIME:23.8minutes ADVERSE EVENTS: There were no complications. IMPRESSIONS: 1. Five medium sized large sessile polyps were found at the hepatic flexure, in the transverse colon, and sigmoid colon; polypectomy was performed using snare cautery 2. Mild diverticulosis was noted in the sigmoid colon 3. The colon mucosa was otherwise normal 4. Retroflexed views revealed no abnormalities 5. Revealed no abnormalities of the rectum RECOMMENDATIONS: 1. Await biopsy results. Biopsy results will not be ready for 7-10 days. If you don't hear from us in two weeks, call our office for results. 2. Follow-up: GI Clinic 4 week(s) 3. High fiber diet 4. Yearly hemoccult RECALL: Return 3 months Colonoscopy Sai Rubin MD eSigned: Sai Rubin MD 05/15/2016 8:00 AM cc: PATIENT NAME: Daiana Nelson MR#: [id number]
[2016-05-15] MEDS: ASCORBIC ACID 500 MG TAB PO SCH (08:32)
[2016-05-15] MEDS: DILTIAZEM-CD 240 MG CAP ER PO SCH (08:32)
[2016-05-15] MEDS: METOPROLOL SUCCINATE 50 MG EXTENDED RELEASE TAB PO SCH ×2 (08:32→20:22)
[2016-05-15] MEDS: SERTRALINE HCL 50 MG TAB PO SCH (08:32)
[2016-05-15] MEDS: FERROUS SULFATE 325 MG (65 MG ELEMENTAL IRON) TAB PO SCH ×2 (08:33→20:21)
[2016-05-15] MEDS: POTASSIUM CHLORIDE 10 MEQ CONTROLLED RELEASE TAB PO SCH ×2 (08:33→20:21)
[2016-05-15] MEDS: guaiFENesin E.R. 600 MG TAB PO SCH ×2 (08:33→20:21)
[2016-05-15] MEDS: LOSARTAN 50 MG TAB PO SCH (08:34)
[2016-05-15] MEDS: AZITHROMYCIN 250 MG TAB PO SCH (08:34)
[2016-05-15] MEDS: SODIUM CHLORIDE 0.9% FLUSH 5 ML FLUSH FLUSH SCH ×2 (08:35→20:20)
[2016-05-15] MEDS: NICOTINE 21 MG/24 HR PATCH TD SCH (08:36)
[2016-05-15] MEDS: THEOPHYLLINE 200 MG EXTENDED RELEASE CAP PO SCH (08:44)
[2016-05-15] MEDS: FUROSEMIDE 40 MG TAB PO SCH ×2 (08:44→17:42)
[2016-05-15] MEDS: PANTOPRAZOLE SODIUM 40 MG VIAL IV PUSH SCH (08:45)
[2016-05-15] MEDS: NYSTATIN 100,000 U/GM PWD 15 GM BTL TOPICAL SCH ×2 (08:47→20:27)
[2016-05-15] MEDS: BUDESONIDE-FORMOTEROL 160/4.5 MCG INHALER INH SCH (08:47)
[2016-05-15] MEDS: TIOTROPIUM BROMIDE 18 MCG INH INH SCH (08:47)
[2016-05-15 09:22] LABS: AUTOMATED NEUTROPHIL # 6.6 TH/MM3 (1.8-7.7); BASOPHIL # 0.1 TH/MM3 (0-0.2); HEMATOCRIT 25.9 % (35.0-46.0); LYMPH % 3.8 % (9.0-44.0); LYMPHOCYTE # 0.3 TH/MM3 (1.0-4.8); MEAN CELL VOLUME 71.4 FL (80.0-100.0); MEAN CORPUSCULAR HEMOGLOBIN 21.8 PG (27.0-34.0); MEAN CORPUSCULAR HGB CONC 30.6 % (32.0-36.0); MONO % 2.4 % (0.0-8.0); NEUT % 92.8 % (16.0-70.0); PLATELET COUNT 229 TH/MM3 (150-450); RED BLOOD COUNT 3.62 MIL/MM3 (4.00-5.30); RED CELL DISTRIBUTION WIDTH 25.5 % (11.6-17.2); WHITE BLOOD COUNT 7.2 TH/MM3 (4.0-11.0)
[2016-05-15 09:36] LABS: HEMO FLAGS AUTO DIFF
[2016-05-15 10:20] LABS: OVALOCYTES 1+ (NORMAL)
[2016-05-15 10:21] LABS: TEARDROP RBCS 1+ (NORMAL)
[2016-05-15 10:22] LABS: SCAN/DIFF AUTO DIFF CONFIRMED
[2016-05-15] MEDS ORDERED: cloNIDine HCL 0.1 MG TAB PO PRN (11:45)
--- NOTE | 2016-05-15 15:48 | HHI.PR ---
Subjective Remarks Patient seen and examined today with Dr. Montilla, patient sitting in sinus bed resting comfortably. She has undergone endoscopy. Patient states that her breathing is much improved. Objective Vitals Vital Signs Date Time Temp Pulse Resp B/P Pulse Ox O2 Delivery O2 Flow Rate FiO2 05/15/16 12:00 95.2 97 21 143/79 97 05/15/16 09:30 Nasal Cannula 3.00 Humidified 05/15/16 08:12 98.8 94 16 158/63 94 05/15/16 08:00 96.6 91 19 154/80 94 05/15/16 07:55 98.8 94 16 122/58 94 05/15/16 06:52 98.5 91 18 139/68 96 05/15/16 04:00 96.6 90 20 149/70 94 05/15/16 04:00 96.6 90 20 149/70 94 05/15/16 00:00 97.5 87 20 142/67 97 05/14/16 20:40 92 05/14/16 20:00 98.3 90 20 158/69 95 05/14/16 20:00 96 Nasal Cannula 3.00 Humidified 05/14/16 20:00 97.8 96 25 148/65 96 05/14/16 20:00 96 05/14/16 19:27 94 Nasal Cannula 3.00 05/14/16 19:01 84 24 144/57 94 05/14/16 19:00 95 Nasal Cannula 3.00 Humidified 05/14/16 18:01 98.0 90 32 144/54 95 05/14/16 18:00 88 05/14/16 17:01 94 30 148/56 95 05/14/16 16:01 92 29 121/48 91 05/14/16 16:00 92 05/14/16 16:00 96 Nasal Cannula 3.00 Humidified I/O 05/14/16 05/14/16 05/14/16 05/15/16 05/15/16 05/15/16 07:00 15:00 23:00 07:00 15:00 23:00 Intake Total 120 ml 560 ml 2000 ml 0 ml 360 ml Output Total 800 ml 1620 ml 300 ml Balance -680 ml -1060 ml 2000 ml 0 ml 60 ml Intake Oral 120 ml 540 ml 2000 ml 0 ml 360 ml IV Total 20 ml 0 ml 0 ml Output Urine Total 800 ml 1620 ml 300 ml # Voids 2 3 # Bowel Movements 0 1 2 5 Result Diagram: 05/15/16 0905 05/15/16 0530 Objective Remarks GENERAL: Well-developed, well-nourished, in no acute distress. alert and orientated HEENT: Head is normocephalic without any lesions or masses noted. Facial features are symmetric. Eyes: Extraocular muscles are intact. Conjunctivae were clear. NECK: Supple without any masses. Trachea midline no deviation. No JVD, CARDIAC: Regular rhythm, regular rate. S1/S2 are heard. No murmurs gallops or rubs. LUNGS: Faint expiratory wheezing. No rhonchi or rales. No use of accessory muscles on inspiration or expiration. Able to speak full sentences. ABDOMEN: Soft, nontender. Nondistended. Bowel sounds heard in all 4 quadrants. No organomegaly or masses. Negative rebound, negative guarding EXTREMITIES: No edema, pulses are equal bilaterally. No cyanosis or clubbing NEUROLOGY: Mood and affect appear appropriate. Cranial nerves II through XII grossly intact. Moving all extremities, speech is clear Urinary Catheter: No Vascular Central Line Catheter: No A/P Assessment and Plan Acute hypoxic respiratory failure in a patient with chronic respiratory failure oxygen dependent secondary to COPD exacerbation: Continue O2 supplementation to maintain O2 sats greater than 92%. Continue BiPAP as needed. Continue nebulizer every 4 hours and as needed, Symbicort, Zithromax, Spiriva. Solu- Medrol 40 mg every 8 hour. Pulmonology following patient. GI bleed with symptomatic anemia: Gastroenterology has evaluated patient and is deferring endoscopies to respiratory status has been stabilized. Changed to Protonix by mouth daily, Monitor H&H and transfuse accordingly, status post transfusion 2 units packed red blood cells. Iron studies to indicate iron deficient anemia. Consulted hematology for recommendations. Will likely require IV iron for 3 days Skin rash in inguinal folds, under breasts: Likely fungal in nature. Will use nystatin powder. Diabetes: Hold her metformin and continue with insulin sliding scale, continue diabetic diet Hypertension: Home medications have been continued Coronary artery disease, recent myocardial infarction, chronic diastolic congestive heart failure: Discontinued Alexander catheter. Avoid fluid overload. Home medications have been continued. Depression/anxiety: Home medications were continued DVT prophylaxis: Chemoprophylaxis contraindicated due to active bleed, SCD/ARIN hose Written by Hector Richmond PA-C, acting as scribe for Dr. Montilla on 05/15/16 at 1545. The documentation accurately reflects the work and decisions performed face-to- face by Dr. Montilla on 05/15/16 at 1545. Hector Richmond May 15, 2016 15:48 Abimael Montilla MD May 15, 2016 18:23
[2016-05-15] MEDS: FENOFIBRATE 145 MG TAB PO SCH (20:20)
[2016-05-15] MEDS: MONTELUKAST SODIUM 10 MG TAB PO SCH (20:22)
[2016-05-15] MEDS: REMOVE OLD NICODERM (NICOTINE) PATCH TD SCH (20:29)
[2016-05-15] MEDS: IRON SUCROSE INJ 200 MG in SODIUM CHLORIDE 0.9% INJ 100 ML IV SCH (20:37)
--- NOTE | 2016-05-15 22:51 | MB ---
cc: YAMILE MARKS M.D. DATE OF CONSULTATION 05/15/16 REASON FOR CONSULTATION Consult requested by [facility] physician for evaluation of iron deficiency anemia. HISTORY OF PRESENT ILLNESS Daiana is a 75 year old female. She has multiple medical problems including coronary artery disease status post [place], hypertension, congestive heart failure, diabetes mellitus, COPD. The patient came to the emergency room complaining of severe shortness of breath. She had a blood test which shows severe anemia with a hemoglobin 5.7. Her stools were heme positive. GI was consulted. She underwent upper endoscopy and colonoscopy which did not show any malignancy or any bleeding site. She had only one polyp which was removed. The patient had received a blood transfusion. Her hemoglobin has improved to 7.9. The patient denies complaint of weakness, tiredness, fatigue. She is complaining of dyspnea on exertion. She denies any blood in the stool. The rest of the review of systems is negative. PAST MEDICAL HISTORY 1. Coronary artery disease status post [place], 2. Congestive heart failure, 3. Diabetes mellitus, 4. Hypertension, 5. Chronic obstructive pulmonary disease 6. Gastroesophageal reflux disease, 7. Hypercholesterolemia. 8. Sleep apnea syndrome, 9. Anxiety depression. PAST SURGICAL HISTORY 1. Partial colectomy for benign tumor 2. Hysterectomy, 3. Cholecystectomy, 4. Right rotator cuff surgery, 5. Tonsillectomy, 6. Bunionectomy 7. Appendectomy 8. Hand surgery. ALLERGIES PENICILLIN CODEINE MEDICATIONS Prior to coming to hospital please see EMR. FAMILY HISTORY Noncontributory. SOCIAL HISTORY Patient smokes cigarettes, half to one pack a day, since she was a teen. Does not drink alcohol. PHYSICAL EXAMINATION General: A well-developed, well-nourished elderly white female in moderate distress due to the COPD. VITAL SIGNS: Temperature 98.8 heart rate is 94, blood pressure 158/63, O2 saturation 94%. HEENT: PERRLA, EOMI, anicteric. No oral lesions are noted. NECK: Supple. LYMPH: There is no cervical, supraclavicular, axillary lymphadenopathy noted. LUNGS: No wheezing, rhonchi or rales. HEART: Regular rate and rhythm. ABDOMEN: Soft, nontender. No hepatosplenomegaly. EXTREMITIES: No pedal edema. NEUROLOGIC: Awake, no cranial nerve deficit. SKIN: No significant lesions noted. ASSESSMENT Severe iron deficiency anemia either due to lack of iron absorption or maybe due to GI bleeding causing the iron loss. PLAN I have reviewed her available records and I have discuss with the patient regarding the severe anemia. She underwent GI workup which is so far negative in terms of malignancy or bleeding. She had a polyp which was removed. The pathology report is still pending. She had anemia workup. The B12 is normal at 307. The serum ferritin is only 10 , iron saturation 4.4. Serum iron is 22 and TIBC is 503. She has classic iron deficiency anemia. I have recommended iron sucrose infusion. I have placed an order for iron sucrose 200 mg daily for three days. I also recommended the patient to be followed up as an outpatient in the clinic after she is discharged to home. Further recommendations based on her hospital stay. Thank you for asking my opinion. MD GILLIAN Cantu/ /9:36 PM /10:39 PM BRYSON
[2016-05-16] VITALS (9 sets, daily range): BP systolic 137–161; BP diastolic 67–74; PULSE 62–88; RESP 18–22; TEMP 96.4–98.6; O2SAT 94–99
[2016-05-16] MEDS: methylPREDNISolone SOD SUCC 125 MG/2 ML VIAL IV SCH ×2 (03:51→11:45)
[2016-05-16] MEDS: SODIUM CHLORIDE 0.9% FLUSH 5 ML FLUSH FLUSH PRN (03:52)
[2016-05-16] MEDS: INSULIN ASPART SUPPLEMENTAL SCALE SQ SCH ×4 (05:31→21:00)
[2016-05-16] MEDS: ISOSORBIDE MONONITRATE 30 MG TAB PO SCH (05:32)
[2016-05-16 07:25] LABS: HEMATOCRIT 25.1 % (35.0-46.0); MEAN CELL VOLUME 71.5 FL (80.0-100.0); MEAN CORPUSCULAR HEMOGLOBIN 22.3 PG (27.0-34.0); MEAN CORPUSCULAR HGB CONC 31.2 % (32.0-36.0); PLATELET COUNT 223 TH/MM3 (150-450); RED BLOOD COUNT 3.51 MIL/MM3 (4.00-5.30); RED CELL DISTRIBUTION WIDTH 25.9 % (11.6-17.2); WHITE BLOOD COUNT 7.1 TH/MM3 (4.0-11.0)
[2016-05-16 07:33] LABS: CHLORIDE 95 MEQ/L (98-107); SODIUM (NA) 140 MEQ/L (136-145)
[2016-05-16 07:38] LABS: REVIEW FLAG FINAL
[2016-05-16 07:39] LABS: ANION GAP 7 MEQ/L (5-15); BICARBONATE 38.3 MEQ/L (21.0-32.0); BLOOD UREA NITROGEN 30 MG/DL (7-18)
[2016-05-16 07:42] LABS: ALT (GPT) 16 U/L (10-53); AST (GOT) 15 U/L (15-37); GLOMERULAR FILTRATION RATE 61 ML/MIN (>89)
[2016-05-16 07:43] LABS: TOTAL BILIRUBIN ADULT 0.3 MG/DL (0.2-1.0)
[2016-05-16 07:44] LABS: ALKALINE PHOSPHATASE 40 U/L (45-117)
[2016-05-16] MEDS: POTASSIUM CHLORIDE 10 MEQ CONTROLLED RELEASE TAB PO SCH ×2 (08:52→20:57)
[2016-05-16] MEDS: NICOTINE 21 MG/24 HR PATCH TD SCH (08:52)
[2016-05-16] MEDS: guaiFENesin E.R. 600 MG TAB PO SCH ×2 (08:53→20:57)
[2016-05-16] MEDS: METOPROLOL SUCCINATE 50 MG EXTENDED RELEASE TAB PO SCH ×2 (08:53→20:57)
[2016-05-16] MEDS: TIOTROPIUM BROMIDE 18 MCG INH INH SCH (08:53)
[2016-05-16] MEDS: LOSARTAN 50 MG TAB PO SCH (08:53)
[2016-05-16] MEDS: FERROUS SULFATE 325 MG (65 MG ELEMENTAL IRON) TAB PO SCH ×2 (08:53→20:57)
[2016-05-16] MEDS: AZITHROMYCIN 250 MG TAB PO SCH (08:53)
[2016-05-16] MEDS: PANTOPRAZOLE SOD 40 MG DELAYED RELEASE TAB PO SCH (08:53)
[2016-05-16] MEDS: BUDESONIDE-FORMOTEROL 160/4.5 MCG INHALER INH SCH (08:53)
[2016-05-16] MEDS: ASCORBIC ACID 500 MG TAB PO SCH (08:53)
[2016-05-16] MEDS: DILTIAZEM-CD 240 MG CAP ER PO SCH (08:53)
[2016-05-16] MEDS: SERTRALINE HCL 50 MG TAB PO SCH (08:53)
[2016-05-16] MEDS: THEOPHYLLINE 200 MG EXTENDED RELEASE CAP PO SCH (08:53)
[2016-05-16] MEDS: NYSTATIN 100,000 U/GM PWD 15 GM BTL TOPICAL SCH ×2 (08:54→20:57)
[2016-05-16] MEDS: SODIUM CHLORIDE 0.9% FLUSH 5 ML FLUSH FLUSH SCH ×2 (08:54→20:58)
[2016-05-16] MEDS: FUROSEMIDE 40 MG TAB PO SCH ×2 (09:00→18:28)
--- NOTE | 2016-05-16 10:45 | HHI.GIFU ---
Subjective Remarks Comfortable in bed cough and shortness of breath improving no bleeding Objective Vitals I&O Vital Signs Date Time Temp Pulse Resp B/P Pulse Ox O2 Delivery O2 Flow Rate FiO2 05/16/16 08:15 94 Nasal Cannula 3.00 05/16/16 08:00 Nasal Cannula 3.00 Humidified 05/16/16 08:00 97.3 62 18 137/68 96 Automatic Cuff 05/16/16 08:00 82 05/16/16 04:00 96.8 69 18 161/74 99 05/16/16 00:00 96.9 65 18 149/67 98 05/15/16 20:07 96 Nasal Cannula 3.00 05/15/16 20:00 81 05/15/16 20:00 Nasal Cannula 3.00 Humidified 05/15/16 20:00 98.7 82 18 153/69 96 05/15/16 12:00 95.2 97 21 143/79 97 I/O 05/15/16 05/15/16 05/15/16 05/16/16 05/16/16 05/16/16 07:00 15:00 23:00 07:00 15:00 23:00 Intake Total 0 ml 360 ml 1350 ml 150 ml Output Total 300 ml 1200 ml Balance 0 ml 60 ml 150 ml 150 ml Intake Oral 0 ml 360 ml 1350 ml IV Total 0 ml 150 ml Output Urine Total 300 ml 1200 ml # Voids 3 2 # Bowel Movements 5 1 Laboratory Laboratory Tests Test 05/16/16 06:35 White Blood Count 7.1 Red Blood Count 3.51 Hemoglobin 7.8 Hematocrit 25.1 Mean Corpuscular Volume 71.5 Mean Corpuscular Hemoglobin 22.3 Mean Corpuscular Hemoglobin 31.2 Concent Red Cell Distribution Width 25.9 Platelet Count 223 Mean Platelet Volume 9.2 Sodium Level 140 Potassium Level 4.0 Chloride Level 95 Carbon Dioxide Level 38.3 Anion Gap 7 Blood Urea Nitrogen 30 Creatinine 0.90 Estimat Glomerular Filtration 61 Rate Random Glucose 210 Calcium Level 9.6 Total Bilirubin 0.3 Aspartate Amino Transf 15 (AST/SGOT) Alanine Aminotransferase 16 (ALT/SGPT) Alkaline Phosphatase 40 Total Protein 6.1 Albumin 2.8 Imaging Last Impressions Chest X-Ray 05/11/16 0000 Signed Impressions: Service Date/Time: Wednesday, May 11, 2016 05:22 - CONCLUSION: Chronic cardiac silhouette enlargement. No acute cardiopulmonary disease identified. Feliberto Cast MD Abdomen/Pelvis CT 05/11/16 0000 Signed Impressions: Service Date/Time: Wednesday, May 11, 2016 13:26 - CONCLUSION: 1. No acute abnormality. 2. Nodular thickening involving the left adrenal gland is unchanged. This is poorly characterized on this exam. Phani Villa Jr., MD Physical Exam HEENT: normocephalic NECK: Neck is supple CHEST: Some rhonchi decreased airflow. CARDIAC: Regular rate and rhythm with no murmur gallop or rubs. ABDOMEN: Soft, nondistended, nontender; no hepatosplenomegaly; bowel sounds are present in all four quadrants. EXTREMITIES: No clubbing, cyanosis, or edema. SKIN: Normal; no rash; no jaundice. SUPERVISOR CORE SHOP: No focal deficits; alert and oriented times three. Assessment and Plan Plan ASSESSMENT: -Symptomatic anemia--Hemoccult positive, HH on admission 5.7/18.8, s/p 2u PRBC. HH stable. 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 -COPD--with continued tobacco use, per primary -DM, per primary -HTN, per primary -CAD, per primary -SAVANNA--uses CPAP, per primary PLAN: -Unremarkable EGD and colon polyps noted on endoscopy -Advance diet as tolerated -Monitor HH, transfuse as needed -Continue Protonix -No further recommendations from a GI standpoint patient follow-up post discharge We will sign off Sai Rubin MD May 16, 2016 10:45
--- NOTE | 2016-05-16 12:11 | HHI.PR ---
Subjective Remarks Doing well sitting on the chair, her wheezes seems to be improving, she is on her day #2 of iv iron Objective Vitals Vital Signs Date Time Temp Pulse Resp B/P Pulse Ox O2 Delivery O2 Flow Rate FiO2 05/16/16 08:15 94 Nasal Cannula 3.00 05/16/16 08:00 Nasal Cannula 3.00 Humidified 05/16/16 08:00 97.3 62 18 137/68 96 Automatic Cuff 05/16/16 08:00 82 05/16/16 04:00 96.8 69 18 161/74 99 05/16/16 00:00 96.9 65 18 149/67 98 05/15/16 20:07 96 Nasal Cannula 3.00 05/15/16 20:00 81 05/15/16 20:00 Nasal Cannula 3.00 Humidified 05/15/16 20:00 98.7 82 18 153/69 96 I/O 05/15/16 05/15/16 05/15/16 05/16/16 05/16/16 05/16/16 07:00 15:00 23:00 07:00 15:00 23:00 Intake Total 0 ml 360 ml 1350 ml 150 ml Output Total 300 ml 1200 ml Balance 0 ml 60 ml 150 ml 150 ml Intake Oral 0 ml 360 ml 1350 ml IV Total 0 ml 150 ml Output Urine Total 300 ml 1200 ml # Voids 3 2 # Bowel Movements 5 1 Result Diagram: 05/16/16 0635 05/16/16 0635 Objective Remarks GENERAL: This is a well-nourished, well-developed patient, in no apparent distress. SKIN: No rashes, warm and dry HEAD: Atraumatic. Normocephalic. EYES: Pupils equal round and reactive. Extraocular motions intact. No scleral icterus. ENT: Nose without bleeding, or drainage, Airway patent. NECK: Trachea midline. Supple CARDIOVASCULAR: Regular rate and rhythm without murmurs, gallops, or rubs. RESPIRATORY: Wheezing improved GASTROINTESTINAL: Abdomen soft, non-tender, nondistended. Positive bowel sounds MUSCULOSKELETAL: Extremities without clubbing, cyanosis, or edema. Pedal pulses appreciated NEUROLOGICAL: Awake and alert. Moves all extremity. Normal speech.no focal neurological deficit A/P Problem List: (1) Symptomatic anemia ICD Code: D64.9 Status: Acute (2) GI bleed ICD Code: K92.2 Status: Acute (3) COPD (chronic obstructive pulmonary disease) ICD Code: J44.9 Status: Acute Assessment and Plan 05/16/16: Doing well, wheezing improved, on her day #2 of iv iron, Taper Solu- Medrol to 40 mg iv once daily, DC Zithromax Acute hypoxic respiratory failure in a patient with chronic respiratory failure oxygen dependent secondary to COPD exacerbation: Continue O2 supplementation to maintain O2 sats greater than 92%. Continue BiPAP as needed. Continue nebulizer every 4 hours and as needed, Symbicort, Zithromax, Spiriva. Solu- Medrol 40 mg every 8 hour. Pulmonology following patient. GI bleed with symptomatic anemia: Gastroenterology has evaluated patient and is deferring endoscopies to respiratory status has been stabilized. Changed to Protonix by mouth daily, Monitor H&H and transfuse accordingly, status post transfusion 2 units packed red blood cells. Iron studies to indicate iron deficient anemia. Consulted hematology for recommendations. Will likely require IV iron for 3 days Skin rash in inguinal folds, under breasts: Likely fungal in nature. Will use nystatin powder. Diabetes: Hold her metformin and continue with insulin sliding scale, continue diabetic diet Hypertension: Home medications have been continued Coronary artery disease, recent myocardial infarction, chronic diastolic congestive heart failure: Discontinued Alexander catheter. Avoid fluid overload. Home medications have been continued. Depression/anxiety: Home medications were continued DVT prophylaxis: Chemoprophylaxis contraindicated due to active bleed, SCD/ARIN hose Problem Qualifiers (1) GI bleed: Qualified Code: K92.2 - Gastrointestinal hemorrhage, unspecified gastrointestinal hemorrhage type Abimael Montilla MD May 16, 2016 12:11
--- NOTE | 2016-05-16 20:14 | PD.ONC.PN ---
Subjective Subjective Remarks c/o sob still has severe weakness. Objective Data Date Time Temp Pulse Resp B/P Pulse Ox O2 Delivery O2 Flow Rate FiO2 05/16/16 16:00 97.7 71 20 143/70 98 05/16/16 12:00 98.6 88 20 144/68 96 05/16/16 08:15 94 Nasal Cannula 3.00 05/16/16 08:00 Nasal Cannula 3.00 Humidified 05/16/16 08:00 97.3 62 18 137/68 96 Automatic Cuff 05/16/16 08:00 82 05/16/16 04:00 96.8 69 18 161/74 99 05/16/16 00:00 96.9 65 18 149/67 98 05/16/16 05/16/16 05/16/16 07:00 15:00 23:00 Intake Total 150 ml 750 ml Output Total 1250 ml Balance 150 ml -500 ml Result Diagram: 05/16/16 0635 05/16/16 0635 Laboratory Results Laboratory Tests Test 05/16/16 06:35 White Blood Count 7.1 TH/MM3 Red Blood Count 3.51 MIL/MM3 Hemoglobin 7.8 GM/DL Hematocrit 25.1 % Mean Corpuscular Volume 71.5 FL Mean Corpuscular Hemoglobin 22.3 PG Mean Corpuscular Hemoglobin 31.2 % Concent Red Cell Distribution Width 25.9 % Platelet Count 223 TH/MM3 Mean Platelet Volume 9.2 FL Sodium Level 140 MEQ/L Potassium Level 4.0 MEQ/L Chloride Level 95 MEQ/L Carbon Dioxide Level 38.3 MEQ/L Anion Gap 7 MEQ/L Blood Urea Nitrogen 30 MG/DL Creatinine 0.90 MG/DL Estimat Glomerular Filtration 61 ML/MIN Rate Random Glucose 210 MG/DL Calcium Level 9.6 MG/DL Total Bilirubin 0.3 MG/DL Aspartate Amino Transf 15 U/L (AST/SGOT) Alanine Aminotransferase 16 U/L (ALT/SGPT) Alkaline Phosphatase 40 U/L Total Protein 6.1 GM/DL Albumin 2.8 GM/DL Administered Medications Medications (Trade) Dose Ordered Sig/Keagan Route PRN Reason Start Time Stop Time Status Last Admin Dose Admin IV Flush (NS Flush) 2 ml UNSCH PRN FLUSH FLUSH AFTER USING IV ACCESS 05/09/16 23:30 05/16/16 03:52 IV Flush (NS Flush) 2 ml BID FLUSH 05/10/16 09:00 05/16/16 08:54 Acetaminophen (Tylenol) 650 mg Q6H PRN PO FEVER/PAIN SCALE 1 TO 2 05/09/16 23:30 05/12/16 16:53 Diltiazem HCl (Cardizem Cd) 240 mg DAILY PO 05/10/16 09:00 05/16/16 08:53 Metoprolol Succinate (Toprol Xl) 50 mg BID PO 05/10/16 09:00 05/16/16 08:53 Theophylline (Lawrence-24) 400 mg DAILY PO 05/10/16 09:00 05/16/16 08:53 Tiotropium [place] (Spiriva Inh) 18 mcg DAILY INH 05/10/16 09:00 05/16/16 08:53 Phenol (Chloraseptic [place]) 2 spray Q2H PRN MT SORE THROAT 05/10/16 11:00 05/12/16 09:09 Menthol ([place]halia Jhoana) 1 lozenge Q1H PRN SUCK-ON SORE THROAT 05/10/16 11:00 05/14/16 20:20 Budesonide/ Formoterol Fumarate (Symbicort 160-4.5 Inh) 2 puff DAILY INH 05/11/16 09:00 05/16/16 08:53 Fenofibrate (Tricor) 145 mg HS PO 05/10/16 21:00 05/15/16 20:20 Sertraline HCl (Zoloft) 50 mg DAILY PO 05/11/16 09:00 05/16/16 08:53 Isosorbide Mononitrate (Imdur) 30 mg DAILY@0700 PO 05/10/16 12:00 05/16/16 05:32 Losartan Potassium (Cozaar) 100 mg DAILY PO 05/10/16 12:00 05/16/16 08:53 Potassium Chloride (KCl) 20 meq BID PO 05/10/16 21:00 05/16/16 08:52 Montelukast Sodium (Singulair) 5 mg HS PO 05/10/16 21:00 05/15/16 20:22 Nicotine (Habitrol 21 Mg Patch.24 Hr) 1 patch DAILY TD 05/11/16 12:00 05/16/16 08:52 Miscellaneous Information 1 HS TD 05/11/16 21:00 05/15/16 20:29 Nystatin (Mycostatin Powder) 1 applic Q12HR TOPICAL 05/12/16 10:00 05/16/16 08:54 Ferrous Sulfate (Ferrous Sulfate) 325 mg BID PO 05/12/16 10:00 05/16/16 08:53 Ascorbic Acid (Vitamin C) 500 mg DAILY PO 05/12/16 10:00 05/16/16 08:53 Alprazolam (Xanax) 0.25 mg Q8H PRN PO anxiety 05/12/16 20:30 05/13/16 13:25 Guaifenesin (Mucinex Er) 600 mg BID PO 05/13/16 09:00 05/16/16 08:53 Furosemide (Lasix) 40 mg BID@0800,1800 PO 05/14/16 18:00 05/16/16 18:28 Pantoprazole Sodium 40 mg 40 mg DAILY PO 05/16/16 09:00 05/16/16 08:53 Iron Sucrose/ Sodium Chloride (Venofer Inj/NS Inj) 110 ml @ 110 mls/hr DAILY@20 IV 05/15/16 20:00 05/17/16 20:59 05/15/16 20:37 Objective Remarks GENERAL: Well-nourished, well-developed patient. SKIN: Warm and dry. HEAD: Normocephalic. EYES: No scleral icterus. No injection or drainage. NECK: Supple, trachea midline. No JVD or lymphadenopathy. LYMPHATIC: No adenopathy. CARDIOVASCULAR: Regular rate and rhythm without murmurs. RESPIRATORY: Decrease Breath sounds with wheezes GASTROINTESTINAL: Abdomen soft, non-tender, nondistended. EXTREMITIES: No cyanosis, or edema. NEUROLOGICAL: No obvious focal deficit. Awake, alert, and oriented x3. Assessment/Plan Problem List: (1) GI bleed Status: Acute Plan: per GI (2) Symptomatic anemia Status: Acute Plan: s/p 3 units PRBC has severe PRETTY day # 2 out of 3 IV iron. H/H stable but < 8. Monitor cbc in am , if hb < 8 then give 2 more units of PRBC Problem Qualifiers (1) GI bleed: Qualified Code: K92.2 - Gastrointestinal hemorrhage, unspecified gastrointestinal hemorrhage type Stephanie Parsons MD May 16, 2016 20:14
[2016-05-16] MEDS: IRON SUCROSE INJ 200 MG in SODIUM CHLORIDE 0.9% INJ 100 ML IV SCH (20:56)
[2016-05-16] MEDS: MONTELUKAST SODIUM 10 MG TAB PO SCH (20:57)
[2016-05-16] MEDS: ALPRAZolam 0.25 MG TAB PO PRN (20:57)
[2016-05-16] MEDS: FENOFIBRATE 145 MG TAB PO SCH (20:57)
[2016-05-16] MEDS: REMOVE OLD NICODERM (NICOTINE) PATCH TD SCH (20:58)
[2016-05-17 00:45] VITALS: BP 156/66; PULSE 64; RESP 18; O2SAT 99
[2016-05-17] MEDS: ISOSORBIDE MONONITRATE 30 MG TAB PO SCH (06:19)
[2016-05-17] MEDS: INSULIN ASPART SUPPLEMENTAL SCALE SQ SCH ×3 (06:21→16:32)
[2016-05-17 07:07] LABS: MEAN CORPUSCULAR HGB CONC 29.7 % (32.0-36.0)
[2016-05-17 07:33] LABS: AUTOMATED NEUTROPHIL # 5.3 TH/MM3 (1.8-7.7); BASOPHIL # 0.1 TH/MM3 (0-0.2); BASOPHIL % 1.1 % (0.0-2.0); EOSINOPHIL % 0.3 % (0.0-4.0); HEMATOCRIT 26.4 % (35.0-46.0); LYMPH % 17.6 % (9.0-44.0); LYMPHOCYTE # 1.3 TH/MM3 (1.0-4.8); MEAN CELL VOLUME 71.6 FL (80.0-100.0); MEAN CORPUSCULAR HEMOGLOBIN 21.2 PG (27.0-34.0); PLATELET COUNT 245 TH/MM3 (150-450); RED BLOOD COUNT 3.69 MIL/MM3 (4.00-5.30); RED CELL DISTRIBUTION WIDTH 25.1 % (11.6-17.2); WHITE BLOOD COUNT 7.2 TH/MM3 (4.0-11.0)
[2016-05-17 07:34] LABS: HEMO FLAGS AUTO DIFF
[2016-05-17 08:00] VITALS: PULSE 79
[2016-05-17 08:07] LABS: OVALOCYTES 1+ (NORMAL); ROULEAUX PRESENT (NORMAL); SCAN/DIFF AUTO DIFF CONFIRMED; STOMATOCYTES 1+ (NORMAL); TEARDROP RBCS 1+ (NORMAL)
[2016-05-17 08:29] VITALS: BP 155/76; PULSE 72; RESP 15; TEMP 97.2; O2SAT 95
[2016-05-17] MEDS ORDERED: methylPREDNISolone SOD SUCC 40 MG/1 ML VIAL IV SCH (09:00)
[2016-05-17] MEDS: TIOTROPIUM BROMIDE 18 MCG INH INH SCH (09:22)
[2016-05-17] MEDS: NYSTATIN 100,000 U/GM PWD 15 GM BTL TOPICAL SCH (09:23)
[2016-05-17] MEDS: THEOPHYLLINE 200 MG EXTENDED RELEASE CAP PO SCH (09:23)
[2016-05-17] MEDS: METOPROLOL SUCCINATE 50 MG EXTENDED RELEASE TAB PO SCH (09:23)
[2016-05-17] MEDS: POTASSIUM CHLORIDE 10 MEQ CONTROLLED RELEASE TAB PO SCH (09:23)
[2016-05-17] MEDS: LOSARTAN 50 MG TAB PO SCH (09:23)
[2016-05-17] MEDS: NICOTINE 21 MG/24 HR PATCH TD SCH (09:23)
[2016-05-17] MEDS: ASCORBIC ACID 500 MG TAB PO SCH (09:23)
[2016-05-17] MEDS: PANTOPRAZOLE SOD 40 MG DELAYED RELEASE TAB PO SCH (09:23)
[2016-05-17] MEDS: SERTRALINE HCL 50 MG TAB PO SCH (09:23)
[2016-05-17] MEDS: FERROUS SULFATE 325 MG (65 MG ELEMENTAL IRON) TAB PO SCH (09:23)
[2016-05-17] MEDS: BUDESONIDE-FORMOTEROL 160/4.5 MCG INHALER INH SCH (09:24)
[2016-05-17] MEDS: SODIUM CHLORIDE 0.9% FLUSH 5 ML FLUSH FLUSH SCH (09:24)
[2016-05-17] MEDS: DILTIAZEM-CD 240 MG CAP ER PO SCH (09:24)
[2016-05-17] MEDS: guaiFENesin E.R. 600 MG TAB PO SCH (09:24)
[2016-05-17] MEDS: ALPRAZolam 0.25 MG TAB PO PRN (09:29)
[2016-05-17] MEDS: FUROSEMIDE 40 MG TAB PO SCH ×2 (09:29→16:32)
[2016-05-17 11:32] VITALS: O2SAT 96
[2016-05-17 12:40] VITALS: BP 149/61; PULSE 81; RESP 18; TEMP 96.5; O2SAT 95
[2016-05-17] MEDS ORDERED: PANT40TA3 PO (14:00)
[2016-05-17] MEDS ORDERED: MUCI600T PO (14:00)
[2016-05-17] MEDS ORDERED: FERR325T PO (14:00)
[2016-05-17] MEDS ORDERED: PRED5PAK2 PO (14:00)
[2016-05-17] MEDS ORDERED: VITA500T PO (14:00)
--- NOTE | 2016-05-17 14:04 | HHI.DCPOC ---
Discharge Care Plan Diagnosis: (1) COPD (chronic obstructive pulmonary disease) (2) GI bleed (3) Symptomatic anemia Goals to Promote Your Health * To prevent worsening of your condition and complications * To maintain your health at the optimal level Directions to Meet Your Goals Take your medications as prescribed Follow your dietary instruction Follow activity as directed Keep your appointments as scheduled Take your immunizations and boosters as scheduled If your symptoms worsen call your PCP, if no PCP go to Urgent Care Center or Emergency Room Smoking is Dangerous to Your Health. Avoid second hand smoke Call the 24-hour hour crisis hotline for domestic abuse at [facility] [place] May 17, 2016 14:04
--- NOTE | 2016-05-17 14:14 | HHI.DS ---
Discharge Summary Admission Date May 09, 2016 at 23:30 Discharge Date: May 17, 2016 Admitting Diagnosis GI bleed (1) Symptomatic anemia ICD Code: D64.9 (2) GI bleed ICD Code: K92.2 (3) COPD (chronic obstructive pulmonary disease) ICD Code: J44.9 Procedures Colonoscopy: 5 medium size large sessile polyps. Polypectomy was performed using snare cautery. Mild diverticulosis in the sigmoid colon.: Mucosal otherwise normal. EGD: Mucosal stomach was normal. Normal duodenal mucosal. Brief History - From Admission This is a 75-year-old female patient with a past medical history significant for COPD with continued tobacco use, hypertension, CAD with previous NM, CHF, osteoarthritis, diabetes, GERD and sleep apnea CPAP compliant who presents to [facility] ED with complaints of severe shortness of breath 1 day. Patient states she was awoken in the middle of the night with severe shortness of breath. Patient was using her CPAP machine at the time. He has chronic respiratory failure and is O2 dependent using 3 L NC 21/09. She reports associated "chest pressure" was very fleeting lasting only a few seconds before resolving on its own. She also complains of decreased appetite for the past day and nausea but no episodes of vomiting. She takes an aspirin daily but denies taking any other [id number] NSAIDs. She denies any abdominal pain or black/tarry/bloody stools. She also denies any hematuria or dysuria. In the past week, she's had increased cough as well as a thick beige sputum production without any complaints of fever but does states she's had some chills in the past week 24 hours. She does report ongoing fatigue for the past month and a half. She has a long history of heavy tobacco use and continues to smoke half to 1 pack of cigarette per day. She reports intermittent diarrhea, which is her baseline after having had a partial colectomy for benign polyp and tumor removal. In the ED, she was found to be severely anemic with hemoglobin of 5.7 and hematocrit of 18.8. She is Hemoccult positive. She is currently receiving her second unit of packed red blood cells and states she is already feeling a little better. Chest x-ray shows cardiomegaly and no evidence of focal infiltrate or consolidation. GI has been already been consulted. She is currently on a Protonix drip. CBC/BMP: 05/17/16 0720 05/16/16 0635 Significant Findings Laboratory Tests Test 05/15/16 05/15/16 05/16/16 05/17/16 05:30 09:05 06:35 07:20 Carbon Dioxide Level 35.3 MEQ/L 38.3 MEQ/L (21.0-32.0) (21.0-32.0) Blood Urea Nitrogen 31 MG/DL (7-18) 30 MG/DL (7-18) Estimat Glomerular Filtration 57 ML/MIN (>89) 61 ML/MIN (>89) Rate Random Glucose 231 MG/DL 210 MG/DL (74-106) (74-106) Red Blood Count 3.62 MIL/MM3 3.51 MIL/MM3 3.69 MIL/MM3 (4.00-5.30) (4.00-5.30) (4.00-5.30) Hemoglobin 7.9 GM/DL 7.8 GM/DL 7.8 GM/DL (11.6-15.3) (11.6-15.3) (11.6-15.3) Hematocrit 25.9 % 25.1 % 26.4 % (35.0-46.0) (35.0-46.0) (35.0-46.0) Mean Corpuscular Volume 71.4 FL 71.5 FL 71.6 FL (80.0-100.0) (80.0-100.0) (80.0-100.0) Mean Corpuscular Hemoglobin 21.8 PG 22.3 PG 21.2 PG (27.0-34.0) (27.0-34.0) (27.0-34.0) Mean Corpuscular Hemoglobin 30.6 % 31.2 % 29.7 % Concent (32.0-36.0) (32.0-36.0) (32.0-36.0) Red Cell Distribution Width 25.5 % 25.9 % 25.1 % (11.6-17.2) (11.6-17.2) (11.6-17.2) Neutrophils (%) (Auto) 92.8 % 74.0 % (16.0-70.0) (16.0-70.0) Lymphocytes (%) (Auto) 3.8 % (9.0-44.0) Lymphocytes # (Auto) 0.3 TH/MM3 (1.0-4.8) Tear Drop Cells 1+ (NORMAL) 1+ (NORMAL) Ovalocytes 1+ (NORMAL) 1+ (NORMAL) Chloride Level 95 MEQ/L (98-107) Alkaline Phosphatase 40 U/L (45-117) Total Protein 6.1 GM/DL (6.4-8.2) Albumin 2.8 GM/DL (3.4-5.0) Basophilic Stippling FAINT (NORMAL) Stomatocytes 1+ (NORMAL) Rouleau PRESENT (NORMAL) Imaging Last Impressions Chest X-Ray 05/11/16 0000 Signed Impressions: Service Date/Time: Wednesday, May 11, 2016 05:22 - CONCLUSION: Chronic cardiac silhouette enlargement. No acute cardiopulmonary disease identified. Feliberto Cast MD Abdomen/Pelvis CT 05/11/16 0000 Signed Impressions: Service Date/Time: Wednesday, May 11, 2016 13:26 - CONCLUSION: 1. No acute abnormality. 2. Nodular thickening involving the left adrenal gland is unchanged. This is poorly characterized on this exam. Phani Villa Jr., MD PE at Discharge GENERAL: This is a well-nourished, well-developed patient, in no apparent distress. SKIN: No rashes, warm and dry HEAD: Atraumatic. Normocephalic. EYES: Pupils equal round and reactive. Extraocular motions intact. No scleral icterus. ENT: Nose without bleeding, or drainage, Airway patent. NECK: Trachea midline. Supple CARDIOVASCULAR: Regular rate and rhythm without murmurs, gallops, or rubs. RESPIRATORY: Wheezing improved GASTROINTESTINAL: Abdomen soft, non-tender, nondistended. Positive bowel sounds MUSCULOSKELETAL: Extremities without clubbing, cyanosis, or edema. Pedal pulses appreciated NEUROLOGICAL: Awake and alert. Moves all extremity. Normal speech.no focal neurological deficit Hospital Course 75-year-old female who originally presented to hospital because of severe shortness of breath. She had acute onset shortness of breath and was unable to catch her breath using her CPAP machine she does have chronic respiratory failure with oxygen dependency. The patient presented to hospital for evaluation and found to have severe anemia with hemoglobin 5.7. Hemoccult was positive. Patient was admitted the hospital. Patient was transfused with improvement of her hemoglobin to 7.6. GI was consulted and was going to pursue endoscopy, however patient had acute on chronic respiratory failure. Patient was transferred to the ICU and started on Solu-Medrol, O2 supplementation, nebulizer treatments, patient tolerated treatment well and was simply wean down on her oxygen. She was without any significant wheeze and on her regular oxygen dose of 3 L per nasal cannula. Patient did undergo upper and lower endoscopies in which there are no signs of any bleeding at that time however there was polyps noted with polypectomy. Patient did have severe iron deficient anemia and hematology was consulted. Hematology recommended patient undergo iron infusions for 3 days. Patient has clinically improved. She has undergone treatment. Will plan discharge accordingly. Discussed with hematology. Okay to give last dose of iron now to facilitate discharge. Pt Condition on Discharge: Stable Discharge Disposition: Discharge Home Discharge Time: > 30 minutes Discharge Instructions DIET: Follow Instructions for: Heart Healthy Diet Activities you can perform: Regular-No Restrictions Follow up Referrals: Gastroenterology - 2 Weeks with Sai Rubin MD Oncology - 2 Weeks with Jaqueline PCP Follow-up - 1 Week Pulmonology - 2 Weeks with Talya Babin MD New Medications: Prednisone (48) 5 mg tab Dose Pack (Prednisone (48) 5 mg tab Dose Pack) 5 Mg Dspk 5 MG PO DIRECTED Inflammation #1 Ref 0 DSPK Ascorbic Acid (Vitamin C) 500 Mg Tab 500 MG PO DAILY vitamin #30 TAB Ferrous Sulfate (Ferrous Sulfate) 325 Mg Tab 325 MG PO BID anemia #60 TAB Guaifenesin ER 12 HR (Mucinex ER 12 HR) 600 Mg Gilberto 600 MG PO BID expectorant #20 TAB Pantoprazole (Pantoprazole) 40 Mg Tab 40 MG PO DAILY GI protection #30 TAB Continued Medications: Aspirin (Aspirin) 81 Mg Tabdr 81 MG PO DAILY TAB Budesonide-Formoterol Inh (Symbicort Inh) 160-4.5 Mcg/Act Aero 2 PUFF INH DAILY #1 Ref 0 INHALER Diltiazem ER 24 HR (Dilt-Xr) 240 Mg Caper 240 MG PO DAILY #30 Ref 0 CAP Fenofibrate (Fenofibrate) 145 Mg Tab 145 MG PO HS #30 Ref 0 TAB Furosemide (Lasix) 40 Mg Tab 40 MG PO BID #60 Ref 0 TAB Isosorbide Mononitrate ER (Isosorbide Mononitrate ER) 30 Mg Gilberto 30 MG PO DAILY Prevent Chest Pain #30 Ref 0 TAB Losartan (Losartan) 100 Mg Tab 100 MG PO DAILY Blood Pressure Management #30 Ref 0 TAB Metformin (Metformin) 1,000 Mg Tab 1000 MG PO BIDPC With meals Blood Sugar Management #60 Ref 0 TAB Metoprolol Succinate ER 24 HR (Toprol XL) 50 Mg Tab 50 MG PO BID #30 Ref 0 TAB Montelukast (Singulair) 5 Mg Chew 5 MG CHEW HS #30 Ref 0 TAB Pantoprazole (Protonix) 40 Mg Tab 40 MG PO DAILY Reflux #30 Ref 0 TAB Potassium Chloride ER (Micro-K) 10 Meq Cap 20 MEQ PO BID Electrolyte Replacement #60 Ref 0 CAP Sertraline (Sertraline) 50 Mg Tab 50 MG PO DAILY #30 Ref 0 TAB Theophylline ER 24 HR (Theophylline ER 24 HR) 400 Mg Tab 300 MG PO DAILY #30 Ref 0 TAB Tiotropium Inh (Spiriva Handihaler) 18 Mcg Cap 18 MCG INH DAILY 1 capsule = 18 mcg COPD #30 Ref 0 CAP Additional Information Written by Hector Richmond PA-C, acting as scribe for Dr. Montilla on 05/17/16 at 1400. The documentation accurately reflects the work and decisions performed face-to- face by Dr. Montilla on 05/17/16 at 1400. Hector Richmond May 17, 2016 14:14
[2016-05-17] MEDS ORDERED: IRON SUCROSE INJ 200 MG in SODIUM CHLORIDE 0.9% INJ 100 ML IV ONE (14:30)
[2016-05-17] MEDS ORDERED: INFO FOR PHARMACY/READ COMMENT XX SCH (14:30)
--- NOTE | 2016-05-17 19:18 | PD.ONC.PN ---
Subjective Subjective Remarks late entry. Feels better. wants to go home. Objective Data Date Time Temp Pulse Resp B/P Pulse Ox O2 Delivery O2 Flow Rate FiO2 05/17/16 12:40 96.5 81 18 149/61 95 05/17/16 11:32 96 Nasal Cannula 3.00 05/17/16 08:29 97.2 72 15 155/76 95 05/17/16 08:00 Nasal Cannula 3.00 Humidified 05/17/16 08:00 79 05/17/16 00:45 64 18 156/66 99 05/16/16 21:36 96.4 84 22 156/69 97 05/16/16 20:35 97 Nasal Cannula 3.00 05/16/16 20:00 97 Nasal Cannula 3.00 Humidified 05/16/16 20:00 81 Result Diagram: 05/17/16 0720 05/16/16 0635 Laboratory Results Laboratory Tests Test 05/17/16 07:20 White Blood Count 7.2 TH/MM3 Red Blood Count 3.69 MIL/MM3 Hemoglobin 7.8 GM/DL Hematocrit 26.4 % Mean Corpuscular Volume 71.6 FL Mean Corpuscular Hemoglobin 21.2 PG Mean Corpuscular Hemoglobin 29.7 % Concent Red Cell Distribution Width 25.1 % Platelet Count 245 TH/MM3 Mean Platelet Volume 9.1 FL Neutrophils (%) (Auto) 74.0 % Lymphocytes (%) (Auto) 17.6 % Monocytes (%) (Auto) 7.0 % Eosinophils (%) (Auto) 0.3 % Basophils (%) (Auto) 1.1 % Neutrophils # (Auto) 5.3 TH/MM3 Lymphocytes # (Auto) 1.3 TH/MM3 Monocytes # (Auto) 0.5 TH/MM3 Eosinophils # (Auto) 0.0 TH/MM3 Basophils # (Auto) 0.1 TH/MM3 CBC Comment AUTO DIFF Differential Comment AUTO DIFF CONFIRMED Basophilic Stippling FAINT Tear Drop Cells 1+ Ovalocytes 1+ Stomatocytes 1+ Rouleau PRESENT Objective Remarks GENERAL: Well-nourished, well-developed patient. SKIN: Warm and dry. HEAD: Normocephalic. EYES: No scleral icterus. No injection or drainage. NECK: Supple, trachea midline. No JVD or lymphadenopathy. LYMPHATIC: No adenopathy. CARDIOVASCULAR: Regular rate and rhythm without murmurs. RESPIRATORY: Breath sounds decrease GASTROINTESTINAL: Abdomen soft, non-tender, nondistended. EXTREMITIES: No cyanosis, or edema. NEUROLOGICAL: No obvious focal deficit. Awake, alert, and oriented x3. Assessment/Plan Problem List: (1) GI bleed Status: Acute Plan: per GI (2) Symptomatic anemia Status: Acute Plan: s/p 3 units PRBC has severe PRETTY day # 3 out of 3 IV iron today H/H stable but < 8. I expect her H/H to improve after iron infusion. d/w her to come to office for follow up of PRETTY. She may need more iron infusion as outpt. Problem Qualifiers (1) GI bleed: Qualified Code: K92.2 - Gastrointestinal hemorrhage, unspecified gastrointestinal hemorrhage type Stephanie Parsons MD May 17, 2016 19:18
== END 2016-05-17 17:46 | disposition home or self-care (01) | DRG 377 ==
LOC: PHED 21:43 → PHEDA 23:30 → PHEDH 05-10 03:29 → PHICU 05-10 17:15 → PH3B 05-14 20:37
PROVIDERS: ADMIT Hospitalist; ATTEND Hospitalist
PROC: 30233N1 Transfusion of Nonautologous Red Blood Cells into Peripheral Vein, Percutaneous Approach (ICD-10-PCS; 2016-05-10)
PROC: 5A09457 Assistance with Respiratory Ventilation, 24-96 Consecutive Hours, Continuous Positive Airway Pressure (ICD-10-PCS; 2016-05-11)
PROC: 0DBK8ZX Excision of Ascending Colon, Via Natural or Artificial Opening Endoscopic, Diagnostic (ICD-10-PCS; 2016-05-15)
PROC: 0DJ08ZZ Inspection of Upper Intestinal Tract, Via Natural or Artificial Opening Endoscopic (ICD-10-PCS; 2016-05-15)
PROC: 0DBN8ZX Excision of Sigmoid Colon, Via Natural or Artificial Opening Endoscopic, Diagnostic (ICD-10-PCS; principal; 2016-05-15 07:00)
PROC: 0DBL8ZX Excision of Transverse Colon, Via Natural or Artificial Opening Endoscopic, Diagnostic (ICD-10-PCS; 2016-05-15 07:00)
DX: K92.2 Gastrointestinal hemorrhage, unspecified (principal); J96.21 Acute and chronic respiratory failure with hypoxia; I50.32 Chronic diastolic (congestive) heart failure; D50.0 Iron deficiency anemia secondary to blood loss (chronic); E11.9 Type 2 diabetes mellitus without complications; I10 Essential (primary) hypertension; J96.22 Acute and chronic respiratory failure with hypercapnia; J44.1 Chronic obstructive pulmonary disease with (acute) exacerbation; E78.5 Hyperlipidemia, unspecified; D12.3 Benign neoplasm of transverse colon; D12.2 Benign neoplasm of ascending colon; D12.5 Benign neoplasm of sigmoid colon; K57.30 Diverticulosis of large intestine without perforation or abscess without bleeding; I25.10 Atherosclerotic heart disease of native coronary artery without angina pectoris; F17.210 Nicotine dependence, cigarettes, uncomplicated; G47.33 Obstructive sleep apnea (adult) (pediatric); I25.2 Old myocardial infarction; Z99.81 Dependence on supplemental oxygen; F32.9 Major depressive disorder, single episode, unspecified; F41.9 Anxiety disorder, unspecified; K21.9 Gastro-esophageal reflux disease without esophagitis; R21 Rash and other nonspecific skin eruption; Z79.84 Long term (current) use of oral hypoglycemic drugs; Z88.5 Allergy status to narcotic agent; Z88.0 Allergy status to penicillin; Z23 Encounter for immunization; Z79.82 Long term (current) use of aspirin
CPT/HCPCS: 36430; 36600; 71010; 74176; 76937; 80048; 80053; 80198; 82550; 82607; 82728; 82784; 82805; 82948; 83516; 83540; 83550; 83735; 83880; 84484; 85007; 85014; 85018; 85025; 85027; 85610; 85730; 86077; 86850; 86870; 86900; 86901; 86920; 86922; 87040; 87070; 87205; 87641; 88305; 90471; 90732; 93005; 93306; 93971; 94002; 94003; 94150; 94640; 94664; 96374; C9113; G0009; J1756; J1815; J1940; J2920; J2930; J7050; J7613; P9016; Q9963

== ENCOUNTER 2016-05-19 09:13 | Inpatient (IN) | payer MEDICARE ==
[~2016-05-19] VITALS: Ht 152.4 cm; Wt 74.5 kg
[2016-05-19] VITALS (7 sets, daily range): BP systolic 121–150; BP diastolic 50–60; PULSE 72–83; RESP 18–24; TEMP 97.9–98.6; O2SAT 95–98
[~2016-05-19 09:13] MED LIST changes: +ASPI1TAB69 PO; -ASPI81TA82 PO; -CLIN1CAP5 PO; +DILT240C36 PO; +FENO145T2 PO; -FENO50TA PO; +FERR325T PO; -FISH100020 PO; -FLON0.053; +FURO1TAB60 PO; -FURO1TAB93 PO; -KLOR20TA6 PO; +LOSA100T PO; -METF-324 PO; +METF1000 PO; -METO50CR PO; +MICR10CA PO; +MUCI600T PO; +PANT40TA3 PO; -PRAV40TA2 PO; +PRED5PAK2 PO; -TAZT240C2 PO; +THEO400T2 PO; +TOPR50TA PO; +VITA500T PO
[2016-05-19] MEDS ORDERED: SODIUM CHLOR 0.9% 1000 ML INJ 1,000 ML IV SCH ×2 (09:47→17:30)
--- NOTE | 2016-05-19 09:59 | PD ---
HPI Chief Complaint: GI Complaint Time Seen by Provider: 09:42 Travel History International Travel<30 days: No Contact w/Intl Traveler<30days: No Traveled to known affect area: No History of Present Illness HPI Patient is a 75-year-old female who returns to emergency room for evaluation of GI bleed. Patient reports that she was discharged from the hospital on Wednesday after she was admitted with a hemoglobin of 5.7, as well as for shortness of breath. Patient reports she did receive 2 units of blood while in the emergency room, reports that she was seen by security operations specialist Dr. Rubin and had an unremarkable EGD as well as Colonoscopy on May 15, 2016 which showed colon polyps as well as mild diverticulosis within the sigmoid colon. Patient was discharged to home on May 17, 2016 with a hemoglobin of 7.8 with instructions to follow-up with Dr. Rubin in 2 weeks and was started on iron supplements. Patient reports that she noticed some dark brown stools yesterday after having a bowel movement, patient noticed the dark brown stools again today after a small bowel movement and with concern for possible GI bleed. Patient reports that she has been feeling a little more tired than normal, denies sensation of dizziness, does report some lightheadedness. Denies any chest pain or shortness of breath at this time. Patient does take a baby aspirin a day. PFSH Past Medical History Hx Anticoagulant Therapy: Yes (81mg asa) Arthritis: Yes Asthma: Yes Anxiety: Yes Depression: Yes Heart Rhythm Problems: Yes (tachycardic in the past) Cancer: No Cardiac Catheterization: Yes Cardiovascular Problems: Yes (chf, htn) High Cholesterol: Yes Chest Pain: Yes Congestive Heart Failure: Yes COPD: Yes Coronary Artery Disease: Yes Diabetes: Yes (type 2 ) Patient Takes Glucophage: Yes Diminished Hearing: No Endocrine: Yes Gastrointestinal Disorders: Yes GERD: Yes Genitourinary: No Hypertension: Yes Musculoskeletal: Yes Neurologic: Yes Psychiatric: Yes Reproductive: Yes (oxygen use at home-2LPM ) Respiratory: Yes (copd. 3l n/c at home) Sleep Apnea: Yes (c-pap at home) Thyroid Disease: Yes Influenza Vaccination: Yes ?: Not Menopausal: Yes Past Surgical History Abdominal Surgery: Yes (colon resection r/t beign tumor removed) Appendectomy: Yes Body Medical Devices: metal in r shoulder Cholecystectomy: Yes Coronary Artery Bypass Graft: No Eye Surgery: Yes (eye repair/cataracts bilat) Genitourinary Surgery: Yes (hysterectomy) Hysterectomy: Yes Neurologic Surgery: No Thoracic Surgery: Yes (cyst removed bilat breats) Tonsillectomy: Yes Other Surgery: Yes (bilat feet bunion removal) Family History Family Myocardial Infarction: Yes (Sibling) Social History Alcohol Use: No Tobacco Use: No (quit) Substance Use: No Allergies-Medications (Allergen,Severity, Reaction): Coded Allergies: Codeine (Verified Allergy, Severe, 05/19/16) . Penicillin (Unverified Allergy, Severe, 05/19/16) . Uncoded Allergies: CRABS (Allergy, Intermediate, ., 05/09/16) . Reported Meds & Prescriptions Reported Meds & Active Scripts Active Prednisone (48) 5 mg tab Dose Pack (Prednisone) 5 Mg Dspk 5 Mg PO DIRECTED Pantoprazole (Pantoprazole Sodium) 40 Mg Tab 40 Mg PO DAILY Mucinex ER 12 HR (Guaifenesin) 600 Mg Gilberto 600 Mg PO BID Ferrous Sulfate 325 Mg Tab 325 Mg PO BID Vitamin C (Ascorbic Acid) 500 Mg Tab 500 Mg PO DAILY Reported Sertraline (Sertraline HCl) 50 Mg Tab 50 Mg PO DAILY Losartan (Losartan Potassium) 100 Mg Tab 100 Mg PO DAILY Theophylline ER 24 HR (Theophylline) 400 Mg Tab 300 Mg PO DAILY Spiriva Handihaler (Tiotropium Inh) 18 Mcg Cap 18 Mcg INH DAILY 1 capsule = 18 mcg Micro-K (Potassium Chloride) 10 Meq Cap 20 Meq PO BID Protonix (Pantoprazole Sodium) 40 Mg Tab 40 Mg PO DAILY Singulair (Montelukast Sodium) 5 Mg Chew 5 Mg CHEW HS Toprol XL (Metoprolol Succinate) 50 Mg Tab 50 Mg PO BID Metformin (Metformin HCl) 1,000 Mg Tab 1,000 Mg PO BIDPC With meals Isosorbide Mononitrate ER (Isosorbide Mononitrate) 30 Mg Gilberto 30 Mg PO DAILY Lasix (Furosemide) 40 Mg Tab 40 Mg PO BID Fenofibrate 145 Mg Tab 145 Mg PO HS Dilt-Xr (Diltiazem HCl) 240 Mg Caper 240 Mg PO DAILY Symbicort Inh (Budesonide/Formoterol Fumarate) 160-4.5 Mcg/Act Aero 2 Puff INH DAILY Review of Systems General / Constitutional: No: Fever Eyes: No: Visual changes HENT: No: Headaches Cardiovascular: No: Chest Pain or Discomfort Respiratory: No: Shortness of Breath Gastrointestinal: Positive: Other (melana), No: Abdominal Pain Genitourinary: No: Dysuria Musculoskeletal: No: Pain Skin: No Rash Neurologic: Positive: Weakness Psychiatric: No: Depression Endocrine: No: Polydipsia Hematologic/Lymphatic: No: Easy Bruising Physical Exam Narrative GENERAL: nad SKIN: Warm and dry. Pale HEAD: Atraumatic. Normocephalic. EYES: Pupils equal and round. No scleral icterus. No injection or drainage. ENT: No nasal bleeding or discharge. Mucous membranes pink and moist. NECK: Trachea midline. No JVD. CARDIOVASCULAR: Regular rate and rhythm. No murmur appreciated. RESPIRATORY: No accessory muscle use. Clear to auscultation. Breath sounds equal bilaterally. GASTROINTESTINAL: Abdomen soft, non-tender, nondistended. Hepatic and splenic margins not palpable. Rectal exam performed with RN at bedside, patient with Hemoccult-positive melanotic stools MUSCULOSKELETAL: No obvious deformities. No clubbing. No cyanosis. No edema. NEUROLOGICAL: Awake and alert. No obvious cranial nerve deficits. Motor grossly within normal limits. Normal speech. PSYCHIATRIC: Appropriate mood and affect; insight and judgment normal. Data Data Last Documented VS Vital Signs Date Time Temp Pulse Resp B/P Pulse Ox O2 Delivery O2 Flow Rate FiO2 05/19/16 11:37 76 18 130/55 97 Nasal Cannula 3 05/19/16 09:23 98.6 Orders Complete Blood Count With Diff (05/19/16 09:47) Comprehensive Metabolic Panel (05/19/16 09:47) Lipase (05/19/16 09:47) Prothrombin Time / Inr (Pt) (05/19/16 09:47) Act Partial Throm Time (Ptt) (05/19/16 09:47) Urinalysis - C+S If Indicated (05/19/16 09:47) Type And Screen (05/19/16 09:47) Ecg Monitoring (05/19/16 09:47) Iv Access Insert/Monitor (05/19/16 09:47) Oximetry (05/19/16 09:47) Sodium Chlor 0.9% 1000 Ml Inj (Ns 1000 M (05/19/16 09:47) Sodium Chloride 0.9% Flush (Ns Flush) (05/19/16 10:00) Pantoprazole Inj (Protonix Inj) (05/19/16 10:00) Pantoprazole Inj (Protonix Inj) (05/19/16 10:00) Red Blood Cells (Rbc) (05/19/16 10:00) Admit Order (Ed Use Only) (05/19/16 12:37) Labs Laboratory Tests Test 05/19/16 05/19/16 10:00 11:15 White Blood Count 9.6 TH/MM3 Red Blood Count 3.81 MIL/MM3 Hemoglobin 8.6 GM/DL Hematocrit 27.5 % Mean Corpuscular Volume 72.2 FL Mean Corpuscular Hemoglobin 22.7 PG Mean Corpuscular Hemoglobin 31.4 % Concent Red Cell Distribution Width 25.7 % Platelet Count 338 TH/MM3 Mean Platelet Volume 8.4 FL Neutrophils (%) (Auto) 87.5 % Lymphocytes (%) (Auto) 7.3 % Monocytes (%) (Auto) 3.8 % Eosinophils (%) (Auto) 1.1 % Basophils (%) (Auto) 0.3 % Neutrophils # (Auto) 8.4 TH/MM3 Lymphocytes # (Auto) 0.7 TH/MM3 Monocytes # (Auto) 0.4 TH/MM3 Eosinophils # (Auto) 0.1 TH/MM3 Basophils # (Auto) 0.0 TH/MM3 CBC Comment AUTO DIFF Differential Comment AUTO DIFF CONFIRMED Ovalocytes 1+ Keratocytes OCC Prothrombin Time 12.1 SEC Prothromb Time International 1.1 RATIO Ratio Activated Partial 22.4 SEC Thromboplast Time Sodium Level 139 MEQ/L Potassium Level 4.2 MEQ/L Chloride Level 95 MEQ/L Carbon Dioxide Level 35.5 MEQ/L Anion Gap 9 MEQ/L Blood Urea Nitrogen 28 MG/DL Creatinine 1.10 MG/DL Estimat Glomerular Filtration 49 ML/MIN Rate Random Glucose 279 MG/DL Calcium Level 9.5 MG/DL Total Bilirubin 0.6 MG/DL Aspartate Amino Transf 18 U/L (AST/SGOT) Alanine Aminotransferase 21 U/L (ALT/SGPT) Alkaline Phosphatase 41 U/L Total Protein 6.2 GM/DL Albumin 3.2 GM/DL Lipase 387 U/L Blood Type AB POSITIVE Antibody Screen NEGATIVE Urine Collection Type CLEAN CATCH Urine Color YELLOW Urine Turbidity CLEAR Urine pH 6.0 Urine Specific [place] 1.010 Urine Protein NEG mg/dL Urine Glucose (UA) NEG mg/dL Urine Ketones NEG mg/dL Urine Occult Blood TRACE Urine Nitrite NEG Urine Bilirubin NEG Urine Leukocyte Esterase TRACE Urine RBC 0-3 /hpf Urine WBC 0-2 /hpf Urine Squamous Epithelial 0-5 /hpf Cells Microscopic Urinalysis Comment CULT NOT INDICATED Urine Collection Time 11:15 [facility] Medical Decision Making Medical Screen Exam Complete: Yes Emergency Medical Condition: Yes Interpretation(s) Vital Signs Date Time Temp Pulse Resp B/P Pulse Ox O2 Delivery O2 Flow Rate FiO2 05/19/16 09:23 98.6 78 20 122/50 95 Room Air Differential Diagnosis GI bleed, iron deficient anemia, electrolyte abnormality Narrative Course Patient is a 75-year-old female who presents to ER wich c/o of GI bleed. Reports that she was discharged from the hospital on Wednesday after being admitted for similar symptoms, reports that she did have a benign EGD as well as colonoscopy during her admission. She does also reports having blood transfusions as her initial HGB was 5.7 on May 09, 2016. Patient was discharged with HGB of 7.7 on May 12, 2016 Vital Signs Date Time Temp Pulse Resp B/P Pulse Ox O2 Delivery O2 Flow Rate FiO2 05/19/16 09:23 98.6 78 20 122/50 95 Room Air VSS at this time. Patient well appearing. On exam, patient does have heme positive melanotic stools. Patient with GI bleed. Patient was started on Protonix as well as Protonix drip. Labs as well as type and screen ordered. Patient will require admission for GI bleed 1311: Case reviewed with Dr. Montilla. Request that I put a call out to GI, Dr. Rubin - if Dr. Rubin wishes for the patient to be admitted to hospital, then Dr. Montilla will admit patient to his service. Call made to Dr. Rubin Case reviewed with Dr. Xie with GI - will admit for further studies, patient can be on a clear liquid diet. Call made to Dr. Montilla for admission Diagnosis Primary Impression: GI bleed Qualified Code: K92.1 - Gastrointestinal hemorrhage with melena Admitting Information Admitting Physician Requests: Observation Galilea Lucas DO May 19, 2016 09:58
[2016-05-19] MEDS ORDERED: PANTOPRAZOLE INJ 80 MG in SODIUM CHLORIDE 0.9% INJ 35 ML IV ONE (10:00)
[2016-05-19] MEDS ORDERED: SODIUM CHLORIDE 0.9% FLUSH 5 ML FLUSH IVF PRN (10:00)
[2016-05-19 10:06] LABS: AUTOMATED NEUTROPHIL # 8.4 TH/MM3 (1.8-7.7); BASOPHIL % 0.3 % (0.0-2.0); EOSINOPHIL # 0.1 TH/MM3 (0-0.4); EOSINOPHIL % 1.1 % (0.0-4.0); HEMATOCRIT 27.5 % (35.0-46.0); LYMPH % 7.3 % (9.0-44.0); LYMPHOCYTE # 0.7 TH/MM3 (1.0-4.8); MEAN CELL VOLUME 72.2 FL (80.0-100.0); MEAN CORPUSCULAR HEMOGLOBIN 22.7 PG (27.0-34.0); MEAN CORPUSCULAR HGB CONC 31.4 % (32.0-36.0); MONO % 3.8 % (0.0-8.0); NEUT % 87.5 % (16.0-70.0); PLATELET COUNT 338 TH/MM3 (150-450); RED BLOOD COUNT 3.81 MIL/MM3 (4.00-5.30); RED CELL DISTRIBUTION WIDTH 25.7 % (11.6-17.2); WHITE BLOOD COUNT 9.6 TH/MM3 (4.0-11.0)
[2016-05-19 10:13] LABS: HEMO FLAGS AUTO DIFF
[2016-05-19 10:15] LABS: CHLORIDE 95 MEQ/L (98-107); POTASSIUM 4.2 MEQ/L (3.5-5.1); SODIUM (NA) 139 MEQ/L (136-145)
[2016-05-19 10:18] LABS: ANION GAP 9 MEQ/L (5-15); BICARBONATE 35.5 MEQ/L (21.0-32.0); BLOOD UREA NITROGEN 28 MG/DL (7-18)
[2016-05-19 10:20] LABS: APTT (PATIENT) 22.4 SEC (24.3-30.1); INTERNATIONAL NORMALIZED RATIO 1.1 RATIO; PROTHROMBIN TIME - PATIENT 12.1 SEC (9.8-11.6)
[2016-05-19 10:21] LABS: ALT (GPT) 21 U/L (10-53); AST (GOT) 18 U/L (15-37); GLOMERULAR FILTRATION RATE 49 ML/MIN (>89)
[2016-05-19] MEDS: PANTOPRAZOLE INJ 80 MG in SODIUM CHLORIDE 0.9% INJ 100 ML IV SCH ×2 (10:22→22:03)
[2016-05-19 10:23] LABS: TOTAL BILIRUBIN ADULT 0.6 MG/DL (0.2-1.0)
[2016-05-19 10:24] LABS: ALKALINE PHOSPHATASE 41 U/L (45-117)
[2016-05-19 10:37] LABS: KERATOCYTES OCC (NORMAL); OVALOCYTES 1+ (NORMAL); SCAN/DIFF AUTO DIFF CONFIRMED
[2016-05-19 11:22] LABS: BLOOD, URINE TRACE (NEG); GLUCOSE,URINE NEG (NEG); KETONE, URINE NEG (NEG); NITRITE,URINE NEG (NEG)
[2016-05-19 11:26] LABS: METHOD OF COLLECTION CLEAN CATCH
[2016-05-19 11:27] LABS: COMMENT (UR) CULT NOT INDICATED; CULTURE IF INDICATED CULT NOT INDICATED; RBC, URINE 0-3 /hpf (0-3); SQUAMOUS EPITHELIAL CELL URINE 0-5 /hpf (0-5); URINE COLOR YELLOW (YELLW/STRAW); WBC, URINE 0-2 /hpf (0-5)
[2016-05-19] MEDS ORDERED: SODIUM CHLOR 0.45% 1000 ML INJ 1,000 ML IV SCH (12:59)
[2016-05-19] MEDS ORDERED: ONDANSETRON HCL 4 MG/2 ML VIAL IVP PRN (13:00)
[2016-05-19] MEDS ORDERED: SODIUM CHLORIDE 0.9% FLUSH 5 ML FLUSH IV FLUSH PRN (13:00)
[2016-05-19] MEDS ORDERED: NALOXONE HCL 0.4 MG/ML AMP IV PRN (13:00)
[2016-05-19 13:23] LABS: HEMATOCRIT 26.3 % (35.0-46.0)
[2016-05-19 13:27] LABS: REVIEW FLAG FINAL
--- NOTE | 2016-05-19 16:24 | HHI.HP ---
HPI Service [facility] Hospitalists Primary Care Physician Genny Partida MD Admission Diagnosis GI Bleed Diagnoses: Chief Complaint: Melena Recent colonoscopy and polypectomy Travel History International Travel<30 Days: No Contact w/Intl Traveler <30 Da: No Traveled to Known Affected Are: No History of Present Illness This is a 75-year-old female with past medical history significant for COPD with continued tobacco use, hypertension, CAD with previous NE, CHF, osteoarthritis, diabetes, GERD and sleep apnea CPAP compliant who was just admitted to the hospital on 05/09/16 with complaints of symptomatic anemia secondary to GI bleed who presents to [facility] ED with complaints of dark brown stool concerning for blood 2. Patient denies any other complaints including fatigue, chest pain, palpitations, weakness, abdominal pain or change in her baseline shortness of breath. During the 05/09/16 admission, patient received several units of packed red blood cells and was evaluated by GI. She underwent a upper and lower endoscopies and there was no evidence of active bleeding however she did undergo a polypectomy. She was also noted to have severe iron deficiency anemia and hematology was consult and recommended iron infusions 3 days which she received during her inpatient stay. In the ED, patients stool was guaiac positive. Review of Systems Constitutional: DENIES: Diaphoretic episodes, Fever, Chills, Dizziness Endocrine: DENIES: Polydipsia, Polyuria, Polyphagia Eyes: DENIES: Blurred vision, Diplopia Ears, nose, mouth, throat: DENIES: Nasal discharge, Throat pain, Hoarseness, Running Nose Respiratory: COMPLAINS OF: Shortness of breath (patient has history of chronic respiratory insufficiency, O2 dependent), DENIES: Cough, Hemoptysis, Sputum production Cardiovascular: COMPLAINS OF: Dyspnea on Exertion (chronic), Lower Extremity Edema (intermittent), DENIES: Chest pain, Palpitations Gastrointestinal: COMPLAINS OF: Black stools (2 episodes), DENIES: Abdominal pain, Diarrhea, Nausea, Vomiting Genitourinary: DENIES: Urinary frequency, Hematuria, Dysuria Musculoskeletal: DENIES: Joint Swelling, Back pain, Neck pain Integumentary: DENIES: Pruritus, Rash Hematologic/lymphatic: DENIES: Lymphadenopathy Immunologic/allergic: DENIES: Urticaria Neurologic: DENIES: Headache, Localized weakness, Paresthesias, Seizures Psychiatric: COMPLAINS OF: Anxiety (chronic), Depression (chronic, unchanged), DENIES: Confusion, Mood changes Past Family Social History Past Medical History Recent admission to the hospital for GI bleed symptomatic anemia requiring transfusion COPD, with ongoing tobacco use CAD, previous NE CHF Diabetes Dyslipidemia Hypertension Osteoarthritis Anxiety Depression SAVANNA, CPAP compliant [place] disease PRETTY Past Surgical History Partial colectomy for benign tumor removal Hysterectomy Cholecystectomy Right rotator cuff repair Multiple benign breast cyst removal Tonsillectomy Bunionectomy Appendectomy Excision of ganglion right wrist Tendon repair right hand Reported Medications Prednisone (48) 5 mg tab Dose Pack (Prednisone) 5 Mg Dspk 5 Mg PO DIRECTED Pantoprazole (Pantoprazole Sodium) 40 Mg Tab 40 Mg PO DAILY Mucinex ER 12 HR (Guaifenesin) 600 Mg Gilberto 600 Mg PO BID Ferrous Sulfate 325 Mg Tab 325 Mg PO BID Vitamin C (Ascorbic Acid) 500 Mg Tab 500 Mg PO DAILY Sertraline (Sertraline HCl) 50 Mg Tab 50 Mg PO DAILY Losartan (Losartan Potassium) 100 Mg Tab 100 Mg PO DAILY Theophylline ER 24 HR (Theophylline) 400 Mg Tab 300 Mg PO DAILY Spiriva Handihaler (Tiotropium Inh) 18 Mcg Cap 18 Mcg INH DAILY 1 capsule = 18 mcg Micro-K (Potassium Chloride) 10 Meq Cap 20 Meq PO BID Protonix (Pantoprazole Sodium) 40 Mg Tab 40 Mg PO DAILY Singulair (Montelukast Sodium) 5 Mg Chew 5 Mg CHEW HS Toprol XL (Metoprolol Succinate) 50 Mg Tab 50 Mg PO BID Metformin (Metformin HCl) 1,000 Mg Tab 1,000 Mg PO BIDPC With meals Isosorbide Mononitrate ER (Isosorbide Mononitrate) 30 Mg Gilberto 30 Mg PO DAILY Lasix (Furosemide) 40 Mg Tab 40 Mg PO BID Fenofibrate 145 Mg Tab 145 Mg PO HS Dilt-Xr (Diltiazem HCl) 240 Mg Caper 240 Mg PO DAILY Symbicort Inh (Budesonide/Formoterol Fumarate) 160-4.5 Mcg/Act Aero 2 Puff INH DAILY Allergies: Coded Allergies: Codeine (Verified Allergy, Severe, 05/19/16) . Penicillin (Unverified Allergy, Severe, 05/19/16) . Uncoded Allergies: CRABS (Allergy, Intermediate, ., 05/09/16) . Active Ordered Medications Current Medications Medications (Trade) Dose Ordered Sig/Keagan Route Start Time Stop Time Status Last Admin Pantoprazole Sodium 80 mg/ Sodium Chloride 100 ml @ 10 mls/hr Q10H IV 05/19/16 10:00 05/19/16 10:22 (1/2 NS 1000 ml Inj) 1,000 ml @ 42 mls/hr [id number] IV 05/19/16 12:59 05/19/16 13:47 (NS Flush) 2 ml UNSCH PRN IV FLUSH 05/19/16 13:00 (NS Flush) 2 ml BID IV FLUSH 05/19/16 21:00 (Zofran Inj) 4 mg Q6H PRN IVP 05/19/16 13:00 (Narcan Inj) 0.4 mg UNSCH PRN IV 05/19/16 13:00 Family History Mother and father, coronary artery disease Mother, diabetes Half-brother, coronary artery disease, DM Half sister, breast cancer Social History Patient has a history of heavy tobacco use, about 1/2 to 1 pack per day since the age of 15. She denies any alcohol consumption or illicit drug use. She was with her son and [id number]. She is a . Physical Exam Vital Signs Vital Signs Date Time Temp Pulse Resp B/P Pulse Ox O2 Delivery O2 Flow Rate FiO2 05/19/16 13:17 80 18 128/59 98 Nasal Cannula 3 05/19/16 11:37 76 18 130/55 97 Nasal Cannula 3 05/19/16 09:53 79 18 150/58 98 Nasal Cannula 3 05/19/16 09:23 98.6 78 20 122/50 95 Room Air Physical Exam GENERAL: This is a well-nourished, well-developed patient, in no apparent distress. A&Ox3. Pleasant and cooperative. SKIN: Warm and dry. HEAD: Atraumatic. Normocephalic. No temporal or scalp tenderness. EYES: Pupils equal round and reactive. Extraocular motions intact. No scleral icterus. No injection or drainage. ENT: Nose without bleeding, purulent drainage or septal hematoma. Throat without erythema, tonsillar hypertrophy or exudate. Uvula midline. Airway patent. NECK: Trachea midline. No JVD or lymphadenopathy. Supple, nontender, no meningeal signs. CARDIOVASCULAR: Regular rate and rhythm without murmurs, gallops, or rubs. RESPIRATORY: Fair air entry. No significant wheezing appreciated. Slightly diminished breath sounds bilaterally. No rales, or rhonchi. GASTROINTESTINAL: Abdomen soft, non-tender, nondistended. No hepato-splenomegaly , or palpable masses. No guarding. MUSCULOSKELETAL: Extremities without clubbing, cyanosis, or edema. No joint tenderness, effusion, or edema noted. No calf tenderness. NEUROLOGICAL: Awake and alert. Moves all extremities. No focal neurological deficits. Laboratory Laboratory Tests Test 05/19/16 05/19/16 05/19/16 10:00 11:15 13:15 White Blood Count 9.6 Red Blood Count 3.81 Hemoglobin 8.6 8.1 Hematocrit 27.5 26.3 Mean Corpuscular Volume 72.2 Mean Corpuscular Hemoglobin 22.7 Mean Corpuscular Hemoglobin 31.4 Concent Red Cell Distribution Width 25.7 Platelet Count 338 Mean Platelet Volume 8.4 Neutrophils (%) (Auto) 87.5 Lymphocytes (%) (Auto) 7.3 Monocytes (%) (Auto) 3.8 Eosinophils (%) (Auto) 1.1 Basophils (%) (Auto) 0.3 Neutrophils # (Auto) 8.4 Lymphocytes # (Auto) 0.7 Monocytes # (Auto) 0.4 Eosinophils # (Auto) 0.1 Basophils # (Auto) 0.0 CBC Comment AUTO DIFF Differential Comment AUTO DIFF CONFIRMED Ovalocytes 1+ Keratocytes OCC Prothrombin Time 12.1 Prothromb Time International 1.1 Ratio Activated Partial 22.4 Thromboplast Time Sodium Level 139 Potassium Level 4.2 Chloride Level 95 Carbon Dioxide Level 35.5 Anion Gap 9 Blood Urea Nitrogen 28 Creatinine 1.10 Estimat Glomerular Filtration 49 Rate Random Glucose 279 Calcium Level 9.5 Total Bilirubin 0.6 Aspartate Amino Transf 18 (AST/SGOT) Alanine Aminotransferase 21 (ALT/SGPT) Alkaline Phosphatase 41 Total Protein 6.2 Albumin 3.2 Lipase 387 Blood Type AB POSITIVE Antibody Screen NEGATIVE Crossmatch Leukocyte-Reduced Red Blood Cells Blood Bank Comment Urine Collection Type CLEAN CATCH Urine Color YELLOW Urine Turbidity CLEAR Urine pH 6.0 Urine Specific [place] 1.010 Urine Protein NEG Urine Glucose (UA) NEG Urine Ketones NEG Urine Occult Blood TRACE Urine Nitrite NEG Urine Bilirubin NEG Urine Leukocyte Esterase TRACE Urine RBC 0-3 Urine WBC 0-2 Urine Squamous Epithelial 0-5 Cells Microscopic Urinalysis Comment CULT NOT INDICATED Urine Collection Time 11:15 Result Diagram: 05/19/16 1315 05/19/16 1000 Assessment and Plan Assessment and Plan 75-year-old female with past medical history significant for COPD with continued tobacco use, hypertension, CAD with previous NE, CHF, osteoarthritis, diabetes, GERD and sleep apnea CPAP compliant who was just admitted to the hospital on 05/09/16 with complaints of symptomatic anemia secondary to GI bleed who presents to [facility] ED with complaints of dark brown stool concerning for blood 2. Melena suspect GI bleed - Admit to observation - GI consulted in ED and would like patient admitted to obs for evaluation, will see patient later this afternoon. Possibly due to recent polypectomy. - Initial hemoglobin 8.6. Patient asymptomatic at present - Serial H/H q8h - type and screen ordered in ED - Continue with Protonix drip as initiated in ED ANTONIA on CKD - Increase creatinine from 0.9-1.1 - Possibly due to GI bleed, monitor BUN over creatinine, avoid nephrotoxins - Gentle hydration COPD - Resume bronchodilators - Resume home Singulair and theophylline - Duonebs prn Diabetes - resume home metformin - Accu-Cheks - Insulin sliding scale Hypertension - Resume home meds - Monitor BP CAD, recent NE, history of CHF - Resume home meds - Monitor for signs of fluid overload Depression/anxiety - Resume medications SAVANNA - Recommend the patient bring her CPAP from home DVT prophylaxis - Chemoprophylaxis contraindicated due to active bleed - SCD/ARIN hose Written by Jocelyne Moore PA-C acting as scribe for Dr. Montilla on 05/19/16 at 12:56. Jocelyne Moore May 19, 2016 16:23 Abimael Montilla MD May 20, 2016 12:10
[2016-05-19] MEDS ORDERED: RESP: ALBUTEROL 2.5 MG/IPRATROPIUM 0.5 MG NEB (PRN) NEB (17:00)
[2016-05-19] MEDS ORDERED: GLUCAGON 1 MG/ML VIAL OTHER PRN (17:00)
[2016-05-19] MEDS ORDERED: DEXTROSE 50% IN WATER 50 ML VIAL(D50) IV PUSH PRN (17:00)
[2016-05-19] MEDS ORDERED: metFORMIN HCL 500 MG TAB PO SCH (18:00)
[2016-05-19] MEDS: DEXT 5%-NACL 0.45% 1000 ML INJ 1,000 ML IV SCH (18:28)
[2016-05-19] MEDS: SODIUM CHLORIDE 0.9% FLUSH 10 ML FLUSH IV FLUSH SCH (21:00)
[2016-05-19] MEDS: INSULIN ASPART SUPPLEMENTAL SCALE SQ SCH (21:00)
--- NOTE | 2016-05-19 21:10 | MB ---
cc: MARIO GONSALEZ M.D., SRISAWAT NEMOU, KHALIL MD DATE OF CONSULTATION: 05/19/2016 REASON FOR CONSULTATION: Rectal bleeding and anemia. HISTORY OF PRESENT ILLNESS: Ms. Nelson is a 75 year-old lady who was here in the hospital about a week ago for iron deficiency anemia, heme-positive stool. At that time she had an EGD and colonoscopy. The EGD was normal. The colonoscopy revealed five polyps. These were snared and removed. Since yesterday she has had two bloody bowel movements which are painless. The last one was this morning. She has had no blood or bowel movement since this morning. She feels well. She is wanting to eat. REVIEW OF SYSTEMS: No active GI bleeding at this time. No abdominal pain. No hematemesis or hematochezia. PAST MEDICAL HISTORY: 1. Iron deficiency anemia. 2. COPD. 3. Coronary artery disease. 4. Congestive heart failure. 5. Diabetes. 6. Hyperlipidemia. 7. Hypertension. 8. Osteoarthritis. 9. Anxiety. 10. Obstructive sleep apnea on C-PAP. PAST SURGICAL HISTORY: 1. Partial colectomy for benign tumor removal. 2. Bowel obstruction 10 to 15 years ago. 3. Hysterectomy. 4. Cholecystectomy. 5. Rotator cuff repair. 6. Tonsillectomy. 7. Appendectomy. 8. Incision of ganglion right wrist, tendon repair. MEDICATIONS: 1. Prednisone 2. Pantoprazole. 3. Mucinex. 4. Ferrous sulfate 5. Sertraline 6. Losartan. 7. Theophylline 8. Protonix 9. Singulair. 10. Toprol. 11. Metformin 12. Isosorbide 13. Lasix 14. Fenofibrate. 15. Symbicort inhaler. ALLERGIES CODEINE. PENICILLIN FAMILY HISTORY: Noncontributory. SOCIAL HISTORY: The patient is a smoker since age 15, no alcohol reported. PHYSICAL EXAMINATION: Reveals a well-nourished lady in no apparent distress. Vital signs stable. HEAD AND NECK: Anicteric sclera. CHEST: Bilateral air entry with rales. ABDOMEN: Soft, nontender. No hepatosplenomegaly. Bowel sounds are present. MARKETING ASSISTANT RETAIL DIVISION: Nonfocal. RECTAL: Deferred. LABORATORY DATA: Hemoglobin of 8.1, INR is 1.1, creatinine 1.10. IMPRESSION: GI bleeding, anemia. RECOMMENDATIONS: Patient's bleeding is very likely from her polypectomy site. A recent endoscopy and colonoscopy did not reveal any active site of bleeding. The bleeding appears to be slowing down. Continue to keep two units of blood on hold. The nurse of the patient advised to monitor her future bowel movements, can start on a liquid diet, monitor H&H. If there is any further bleeding, repeat colonoscopy can be considered. This has been discussed with the patient. Will follow with you. Thank you for the referral. MD TRENT Rees/STELLA /7:58 PM /9:00 PM
[2016-05-19 21:34] LABS: REVIEW FLAG FINAL
[2016-05-19] MEDS: METOPROLOL SUCCINATE 50 MG EXTENDED RELEASE TAB PO SCH (21:58)
[2016-05-19] MEDS: MONTELUKAST SODIUM 10 MG TAB PO SCH (21:59)
[2016-05-19] MEDS: FENOFIBRATE 145 MG TAB PO SCH (21:59)
[2016-05-19] MEDS: guaiFENesin E.R. 600 MG TAB PO SCH (21:59)
[2016-05-19] MEDS: FERROUS SULFATE 325 MG (65 MG ELEMENTAL IRON) TAB PO SCH (21:59)
[2016-05-20] VITALS (9 sets, daily range): BP systolic 130–148; BP diastolic 59–77; PULSE 61–109; RESP 19–21; TEMP 97.1–98.4; O2SAT 96–100
[2016-05-20] MEDS: ISOSORBIDE MONONITRATE 30 MG TAB PO SCH (06:03)
[2016-05-20] MEDS: PANTOPRAZOLE INJ 80 MG in SODIUM CHLORIDE 0.9% INJ 100 ML IV SCH ×2 (06:04→16:40)
[2016-05-20] MEDS: INSULIN ASPART SUPPLEMENTAL SCALE SQ SCH ×4 (06:05→21:00)
[2016-05-20 06:54] LABS: HEMATOCRIT 24.5 % (35.0-46.0)
[2016-05-20 07:04] LABS: REVIEW FLAG FINAL
[2016-05-20] MEDS: BUDESONIDE-FORMOTEROL 160/4.5 MCG INHALER INH SCH (08:46)
[2016-05-20] MEDS: TIOTROPIUM BROMIDE 18 MCG INH INH SCH (08:47)
[2016-05-20] MEDS: SODIUM CHLORIDE 0.9% FLUSH 10 ML FLUSH IV FLUSH SCH ×2 (08:47→21:00)
[2016-05-20] MEDS: THEOPHYLLINE 100 MG EXTENDED RELEASE CAP PO SCH (08:48)
[2016-05-20] MEDS: SERTRALINE HCL 50 MG TAB PO SCH (08:49)
[2016-05-20] MEDS: THEOPHYLLINE 200 MG EXTENDED RELEASE CAP PO SCH (08:49)
[2016-05-20] MEDS: guaiFENesin E.R. 600 MG TAB PO SCH ×2 (08:50→21:27)
[2016-05-20] MEDS: DILTIAZEM-CD 240 MG CAP ER PO SCH (08:50)
[2016-05-20] MEDS: FERROUS SULFATE 325 MG (65 MG ELEMENTAL IRON) TAB PO SCH ×2 (08:50→21:28)
[2016-05-20] MEDS: ASCORBIC ACID 500 MG TAB PO SCH (08:50)
[2016-05-20] MEDS: LOSARTAN 50 MG TAB PO SCH (08:50)
[2016-05-20] MEDS: METOPROLOL SUCCINATE 50 MG EXTENDED RELEASE TAB PO SCH ×2 (08:50→21:29)
[2016-05-20] MEDS ORDERED: THEOPHYLLINE 200 MG EXTENDED RELEASE CAP PO SCH (09:00)
[2016-05-20 10:02] LABS: REVIEW FLAG FINAL
[2016-05-20] MEDS: NICOTINE 21 MG/24 HR PATCH TD SCH (13:13)
[2016-05-20 14:29] LABS: HEMATOCRIT 24.3 % (35.0-46.0)
[2016-05-20 14:31] LABS: REVIEW FLAG FINAL
--- NOTE | 2016-05-20 15:26 | HHI.PR ---
Subjective Remarks Resting in bed comfortably no short of breath or chest Gestation stated she did have positive bowel movement with dark black stools which is loose today Explained to her recommendation of the GI specialist, we will monitor her hemoglobin if any further rectal bleeding she may need to be rescoped again Objective Vitals Vital Signs Date Time Temp Pulse Resp B/P Pulse Ox O2 Delivery O2 Flow Rate FiO2 05/20/16 12:00 97.7 72 20 138/59 96 05/20/16 08:00 97.4 73 21 130/69 99 05/20/16 07:21 67 05/20/16 04:00 98.2 70 20 148/74 100 05/20/16 01:49 3.00 05/20/16 00:00 98.4 72 19 139/61 100 05/19/16 20:15 83 05/19/16 20:00 98.1 72 20 121/59 97 05/19/16 15:45 97.9 79 24 148/60 97 I/O 05/19/16 05/19/16 05/19/16 05/20/16 05/20/16 05/20/16 07:00 15:00 23:00 07:00 15:00 23:00 Intake Total 450 ml 927 ml 489 ml 1100 ml Output Total 1000 ml Balance -550 ml 927 ml 489 ml 1100 ml Intake Oral 1100 ml IV Total 450 ml 927 ml 489 ml Output Urine Total 1000 ml # Voids 1 2 2 5 # Bowel Movements 2 Result Diagram: 05/20/16 1400 05/19/16 1000 Objective Remarks GENERAL: This is a well-nourished, well-developed patient, in no apparent distress. SKIN: No rashes, warm and dry HEAD: Atraumatic. Normocephalic. EYES: Pupils equal round and reactive. Extraocular motions intact. No scleral icterus. ENT: Nose without bleeding, or drainage, Airway patent. NECK: Trachea midline. Supple CARDIOVASCULAR: Regular rate and rhythm without murmurs, gallops, or rubs. RESPIRATORY: Fair air entry Very minimal wheezes, rales, or rhonchi. GASTROINTESTINAL: Abdomen soft, non-tender, nondistended. Positive bowel sounds MUSCULOSKELETAL: Extremities without clubbing, cyanosis, or edema. Pedal pulses appreciated NEUROLOGICAL: Awake and alert. Moves all extremity. Normal speech.no focal neurological deficit A/P Assessment and Plan 75-year-old female with past medical history significant for COPD with continued tobacco use, hypertension, CAD with previous [place], CHF, osteoarthritis, diabetes, GERD and sleep apnea CPAP compliant who was just admitted to the hospital on 05/09/16 with complaints of symptomatic anemia secondary to GI bleed who presents to [facility] ED with complaints of dark brown stool concerning for blood 2. Melena suspect GI bleed -Appreciate GI consultation, I discussed with suggesting bleeding mostly due to previous polypectomy, however recommended monitoring H&H for any further rectal bleeding she may be need to be rescoped - Initial hemoglobin 8.6. Patient asymptomatic at present - Serial H/H q8h - type and screen ordered in ED - Continue with Protonix drip as initiated in ED ANTONIA on CKD - Increase creatinine from 0.9-1.1 - Possibly due to GI bleed, monitor BUN over creatinine, avoid nephrotoxins - Gentle hydration, repeat BMP in a.m. COPD - Resume bronchodilators - Resume home Singulair and theophylline - Duonebs prn Diabetes - resume home metformin - Accu-Cheks - Insulin sliding scale Hypertension - Resume home meds - Monitor BP CAD, recent MO, history of CHF - Resume home meds - Monitor for signs of fluid overload Depression/anxiety - Resume medications SAVANNA - Recommend the patient bring her CPAP from home DVT prophylaxis - Chemoprophylaxis contraindicated due to active bleed - JUAREZ/ARIN Abimael Lara MD May 20, 2016 15:26
[2016-05-20] MEDS: DEXT 5%-NACL 0.45% 1000 ML INJ 1,000 ML IV SCH (16:34)
--- NOTE | 2016-05-20 17:21 | HHI.GIFU ---
GI Follow-up Note Consult Follow-up Subjective: Patient laying in bed comfortably, no new complaints except ? melena Objective: PHYSICAL EXAMINATION: Vitals signs stable No fever HEENT: Pupils round and reactive to light; normocephalic; atraumatic; no jaundice. Throat is clear. NECK: Neck is supple, no JVD, no lymphadenopathy. CHEST: Chest is clear to auscultation and percussion. CARDIAC: Regular rate and rhythm with no murmur gallop or rubs. ABDOMEN: Soft, nondistended, nontender; no hepatosplenomegaly; bowel sounds are present in all four quadrants. EXTREMITIES: No clubbing, cyanosis, or edema. SKIN: Normal; no rash; no jaundice. SUPERVISING BAILIFF: No focal deficits; alert and oriented times three. Available Data (labs, X- Rays, Procedues) : Laboratory Tests Test 05/19/16 05/19/16 05/19/16 05/19/16 10:00 11:15 13:15 21:04 White Blood Count 9.6 TH/MM3 Red Blood Count 3.81 MIL/MM3 Hemoglobin 8.6 GM/DL 8.1 GM/DL 8.2 GM/DL Hematocrit 27.5 % 26.3 % 27.0 % Mean Corpuscular Volume 72.2 FL Mean Corpuscular Hemoglobin 22.7 PG Mean Corpuscular Hemoglobin 31.4 % Concent Red Cell Distribution Width 25.7 % Platelet Count 338 TH/MM3 Mean Platelet Volume 8.4 FL Neutrophils (%) (Auto) 87.5 % Lymphocytes (%) (Auto) 7.3 % Monocytes (%) (Auto) 3.8 % Eosinophils (%) (Auto) 1.1 % Basophils (%) (Auto) 0.3 % Neutrophils # (Auto) 8.4 TH/MM3 Lymphocytes # (Auto) 0.7 TH/MM3 Monocytes # (Auto) 0.4 TH/MM3 Eosinophils # (Auto) 0.1 TH/MM3 Basophils # (Auto) 0.0 TH/MM3 CBC Comment AUTO DIFF Differential Comment AUTO DIFF CONFIRMED Ovalocytes 1+ Keratocytes OCC Prothrombin Time 12.1 SEC Prothromb Time International 1.1 RATIO Ratio Activated Partial 22.4 SEC Thromboplast Time Sodium Level 139 MEQ/L Potassium Level 4.2 MEQ/L Chloride Level 95 MEQ/L Carbon Dioxide Level 35.5 MEQ/L Anion Gap 9 MEQ/L Blood Urea Nitrogen 28 MG/DL Creatinine 1.10 MG/DL Estimat Glomerular Filtration 49 ML/MIN Rate Random Glucose 279 MG/DL Calcium Level 9.5 MG/DL Total Bilirubin 0.6 MG/DL Aspartate Amino Transf 18 U/L (AST/SGOT) Alanine Aminotransferase 21 U/L (ALT/SGPT) Alkaline Phosphatase 41 U/L Total Protein 6.2 GM/DL Albumin 3.2 GM/DL Lipase 387 U/L Blood Type AB POSITIVE Antibody Screen NEGATIVE Crossmatch Leukocyte-Reduced Red Blood Cells Blood Bank Comment Urine Collection Type CLEAN CATCH Urine Color YELLOW Urine Turbidity CLEAR Urine pH 6.0 Urine Specific [place] 1.010 Urine Protein NEG mg/dL Urine Glucose (UA) NEG mg/dL Urine Ketones NEG mg/dL Urine Occult Blood TRACE Urine Nitrite NEG Urine Bilirubin NEG Urine Leukocyte Esterase TRACE Urine RBC 0-3 /hpf Urine WBC 0-2 /hpf Urine Squamous Epithelial 0-5 /hpf Cells Microscopic Urinalysis Comment CULT NOT INDICATED Urine Collection Time 11:15 Test 05/20/16 05/20/16 05/20/16 06:22 09:50 14:00 Hemoglobin 7.6 GM/DL 7.6 GM/DL 7.4 GM/DL Hematocrit 24.5 % 25.0 % 24.3 % Allergies Coded Allergies Type Severity Reaction Last Updated Verified Codeine Allergy Severe 05/19/16 Yes Penicillin Allergy Severe 05/19/16 No Uncoded Allergies Type Severity Reaction Last Updated Verified CRABS Allergy Intermediate . 05/09/16 Active Scripts Medications Dose Route/Sig Days Date Category Dose Instructions Prednisone (48) 5 mg tab Dose Pack (Prednisone) 5 Mg Dspk 5 Mg PO DIRECTED 05/17/16 Rx Pantoprazole (Pantoprazole Sodium) 40 Mg Tab 40 Mg PO DAILY 05/17/16 Rx Mucinex ER 12 HR (Guaifenesin) 600 Mg Gilberto 600 Mg PO BID 05/17/16 Rx Ferrous Sulfate 325 Mg Tab 325 Mg PO BID 05/17/16 Rx Vitamin C (Ascorbic Acid) 500 Mg Tab 500 Mg PO DAILY 05/17/16 Rx Sertraline (Sertraline HCl) 50 Mg Tab 50 Mg PO DAILY 05/10/16 Reported Losartan (Losartan Potassium) 100 Mg Tab 100 Mg PO DAILY 05/09/16 Reported Theophylline ER 24 HR (Theophylline) 400 Mg Tab 300 Mg PO DAILY 05/09/16 Reported Spiriva Handihaler (Tiotropium Inh) 18 Mcg Cap 18 Mcg INH DAILY 05/09/16 Reported 1 capsule = 18 mcg Micro-K (Potassium Chloride) 10 Meq Cap 20 Meq PO BID 05/09/16 Reported Protonix (Pantoprazole Sodium) 40 Mg Tab 40 Mg PO DAILY 05/09/16 Reported Singulair (Montelukast Sodium) 5 Mg Chew 5 Mg CHEW HS 05/09/16 Reported Toprol XL (Metoprolol Succinate) 50 Mg Tab 50 Mg PO BID 05/09/16 Reported Metformin (Metformin HCl) 1,000 Mg Tab 1,000 Mg PO BIDPC 05/09/16 Reported With meals Isosorbide Mononitrate ER (Isosorbide Mononitrate) 30 Mg Gilberto 30 Mg PO DAILY 05/09/16 Reported Lasix (Furosemide) 40 Mg Tab 40 Mg PO BID 05/09/16 Reported Fenofibrate 145 Mg Tab 145 Mg PO HS 05/09/16 Reported Dilt-Xr (Diltiazem HCl) 240 Mg Caper 240 Mg PO DAILY 05/09/16 Reported Symbicort Inh (Budesonide/Formoterol Fumarate) 160-4.5 Mcg/Act Aero 2 Puff INH DAILY 05/09/16 Reported ASSESSMENT/PLAN: Seen and examined, doing well, ? melena. Dropin H/H, repeat colonoscopy tomorrow. Transfuse if Hb < 7.0/ H/H q 8 hours. It was a pleasure seeing Daiana Nelson. Thank you for this consult. Entered by: Gil Schaefer MD May 20, 2016 17:21
[2016-05-20] MEDS ORDERED: PROPOFOL 200 MG/20 ML AMP IV ONE (18:02)
[2016-05-20] MEDS: PEG (High)/E-LYTE SOLN 4000 ML BTL PO SCH (18:13)
[2016-05-20 18:37] LABS: HEMATOCRIT 26.7 % (35.0-46.0)
[2016-05-20 18:47] LABS: REVIEW FLAG FINAL
[2016-05-20] MEDS: FENOFIBRATE 145 MG TAB PO SCH (21:27)
[2016-05-20] MEDS: MONTELUKAST SODIUM 10 MG TAB PO SCH (21:28)
[2016-05-20] MEDS: REMOVE OLD NICODERM (NICOTINE) PATCH TD SCH (21:30)
[2016-05-20] MEDS ORDERED: ALPRAZolam 0.25 MG TAB PO ONE (22:45)
[2016-05-20] MEDS ORDERED: PILL SPLITTER OTHER PRN (22:45)
[2016-05-21] VITALS (9 sets, daily range): BP systolic 127–156; BP diastolic 53–67; PULSE 61–73; RESP 16–20; TEMP 96.7–98; O2SAT 96–100
[2016-05-21] MEDS: PEG (High)/E-LYTE SOLN 4000 ML BTL PO SCH (02:12)
[2016-05-21] MEDS: PANTOPRAZOLE INJ 80 MG in SODIUM CHLORIDE 0.9% INJ 100 ML IV SCH ×3 (02:13→22:50)
[2016-05-21 05:53] LABS: AUTOMATED NEUTROPHIL # 3.6 TH/MM3 (1.8-7.7); BASOPHIL % 0.3 % (0.0-2.0); EOSINOPHIL # 0.1 TH/MM3 (0-0.4); EOSINOPHIL % 1.6 % (0.0-4.0); HEMATOCRIT 23.9 % (35.0-46.0); LYMPH % 23.2 % (9.0-44.0); LYMPHOCYTE # 1.3 TH/MM3 (1.0-4.8); MEAN CELL VOLUME 74.4 FL (80.0-100.0); MEAN CORPUSCULAR HEMOGLOBIN 23.1 PG (27.0-34.0); MONO % 8.6 % (0.0-8.0); NEUT % 66.3 % (16.0-70.0); PLATELET COUNT 266 TH/MM3 (150-450); RED BLOOD COUNT 3.21 MIL/MM3 (4.00-5.30); WHITE BLOOD COUNT 5.5 TH/MM3 (4.0-11.0)
[2016-05-21 05:56] LABS: HEMO FLAGS AUTO DIFF
[2016-05-21 06:06] LABS: POTASSIUM 3.7 MEQ/L (3.5-5.1)
[2016-05-21 06:22] LABS: OVALOCYTES 2+ (NORMAL); PLATELET ESTIMATE SMEAR NORMAL (NORMAL); PLATELET MORPHOLOGY NORMAL (NORMAL); SCAN/DIFF AUTO DIFF CONFIRMED; TEARDROP RBCS 1+ (NORMAL)
[2016-05-21 06:28] LABS: BICARBONATE 33.7 MEQ/L (21.0-32.0)
[2016-05-21] MEDS: ISOSORBIDE MONONITRATE 30 MG TAB PO SCH (06:45)
[2016-05-21] MEDS: INSULIN ASPART SUPPLEMENTAL SCALE SQ SCH ×4 (06:45→21:00)
--- NOTE | 2016-05-21 07:49 | HHI.GIFU ---
Subjective Remarks feels ok, tolerated prep, no bleeding today but dropped HGB Objective Vitals I&O Vital Signs Date Time Temp Pulse Resp B/P Pulse Ox O2 Delivery O2 Flow Rate FiO2 05/21/16 04:00 96.9 64 20 156/67 100 05/21/16 00:00 98.0 61 20 142/63 99 05/20/16 20:20 99 Nasal Cannula 3.00 05/20/16 20:00 61 05/20/16 20:00 97.1 109 19 138/71 99 05/20/16 16:00 97.6 65 20 147/77 99 05/20/16 15:00 100 Nasal Cannula 3.00 05/20/16 12:00 97.7 72 20 138/59 96 05/20/16 08:00 97.4 73 21 130/69 99 I/O 05/20/16 05/20/16 05/20/16 05/21/16 05/21/16 05/21/16 07:00 15:00 23:00 07:00 15:00 23:00 Intake Total 489 ml 1100 ml 802 ml 398 ml Balance 489 ml 1100 ml 802 ml 398 ml Intake Oral 1100 ml IV Total 489 ml 802 ml 398 ml # Voids 2 5 6 3 # Bowel Movements 2 6 3 Laboratory Laboratory Tests Test 05/20/16 05/20/16 05/20/16 05/21/16 09:50 14:00 18:10 05:09 Hemoglobin 7.6 7.4 8.3 7.4 Hematocrit 25.0 24.3 26.7 23.9 White Blood Count 5.5 Red Blood Count 3.21 Mean Corpuscular Volume 74.4 Mean Corpuscular Hemoglobin 23.1 Mean Corpuscular Hemoglobin 31.0 Concent Red Cell Distribution Width 27.0 Platelet Count 266 Mean Platelet Volume 9.0 Neutrophils (%) (Auto) 66.3 Lymphocytes (%) (Auto) 23.2 Monocytes (%) (Auto) 8.6 Eosinophils (%) (Auto) 1.6 Basophils (%) (Auto) 0.3 Neutrophils # (Auto) 3.6 Lymphocytes # (Auto) 1.3 Monocytes # (Auto) 0.5 Eosinophils # (Auto) 0.1 Basophils # (Auto) 0.0 CBC Comment AUTO DIFF Differential Comment AUTO DIFF CONFIRMED Platelet Estimate NORMAL Platelet Morphology Comment NORMAL Tear Drop Cells 1+ Ovalocytes 2+ Sodium Level 144 Potassium Level 3.7 Chloride Level 102 Carbon Dioxide Level 33.7 Anion Gap 8 Blood Urea Nitrogen 9 Creatinine 0.72 Estimat Glomerular Filtration 79 Rate Random Glucose 98 Calcium Level 8.8 Physical Exam HEENT: Pupils round and reactive to light; normocephalic; atraumatic; no jaundice. Throat is clear. NECK: Neck is supple, no JVD, no lymphadenopathy. CHEST: Chest is clear to auscultation and percussion. CARDIAC: Regular rate and rhythm with no murmur gallop or rubs. ABDOMEN: Soft, nondistended, nontender; no hepatosplenomegaly; bowel sounds are present in all four quadrants. EXTREMITIES: No clubbing, cyanosis, or edema. SKIN: Normal; no rash; no jaundice. FINANCING ANALYST: No focal deficits; alert and oriented times three. Assessment and Plan Plan patient has rectal bleed, S/P colonoscopy few days ago with anemia, colonoscopy showed 1 small polyp ablated in the cecum, i s cm polyp removed by snare in the ascending colon, 2 large ulcers at with clots in the ascending colon, most likely previous polypectomy site, the clots were removed and ablated with heat, patient has some diverticulosis start clear liquid, advance as tolerated monition H/H with PRBC as needed if stable, ok to DC home in am. Alecia Graham MD May 21, 2016 07:49
--- NOTE | 2016-05-21 07:57 | GIPROC ---
[facility] [address] [place] [address], [id number] COLONOSCOPY PROCEDURE REPORT EXAM DATE: 05/21/2016 PATIENT NAME: Daiana Nelson MR #: [id number] BIRTHDATE: 1940 ENDOSCOPIST: Alecia Graham MD ORDER #: [id number] [employer]ORTS [employer]ICINE TRAINER: Manas Mejia and Madison Sweet STATUS: inpatient INDICATIONS: The patient is a 75 yr old female here for a colonoscopy due to hematochezia PROCEDURE PERFORMED: Colonoscopy with ablation Colonoscopy with control of bleeding Colonoscopy with polypectomy MEDICATIONS: None and Per Anesthesia. PREP QUALITY: good ESTIMATED BLOOD LOSS: None CONSENT: The patient understands the risks and benefits of the procedure and understands that these risks include, but are not limited to: sedation, allergic reaction, infection, perforation and/or bleeding. Alternative means of evaluation and treatment include, among others: physical exam, x-rays, and/or surgical intervention. The patient elects to proceed with this endoscopic procedure. medical equipment was checked for proper function. Hand hygiene and appropriate measures for infection prevention was taken. After the risks, benefits and alternatives of the procedure were thoroughly explained, Informed consent was verified, confirmed and timeout was successfully executed by the treatment team. A digital exam was performed and revealed no abnormalities of the rectum The Pentax [id number] endoscope was introduced through the anus and advanced to the cecum, which was identified by both the appendix and ileocecal valve. The instrument was then slowly withdrawn as the colon was fully examined. COLON FINDINGS: Small nodule in sigmoid C/W lipoma. Small 5 mm polyp in the cecum ablated with heat. 1 cm polyp in the ascending colon removed snare. 2 ulcers in the ascending colon with clots, most likely site of previous polypectomy and most likely source of bleed, the clots were removed and the ulcers were ablated with heat. Moderate diverticulosis was noted in the sigmoid colon. The colon mucosa was otherwise normal. Retroflexed views revealed no abnormalities The scope was then completely withdrawn from the patient and the procedure terminated. ADVERSE EVENTS: There were no complications. IMPRESSIONS: 1. Small nodule in sigmoid C/W lipoma 2. Small 5 mm polyp in the cecum ablated with heat 3. 1 cm polyp in the ascending colon removed snare 4. 2 ulcers in the ascending colon with clots, most likely site of previous polypectomy and most likely source of bleed, the clots were removed and the ulcers were ablated with heat 5. Moderate diverticulosis was noted in the sigmoid colon 6. The colon mucosa was otherwise normal 7. Retroflexed views revealed no abnormalities 8. Was performed 9. Revealed no abnormalities of the rectum RECOMMENDATIONS: 1. Await biopsy results. Biopsy results will not be ready for 7-10 days. If you don't hear from us in two weeks, call our office for results. 2. Clear liquid, advance as tolerated f/u RECALL: Return 3 years Colonoscopy Alecia Graham MD eSigned: Alecia Graham MD 05/21/2016 7:56 AM cc: PATIENT NAME: Daiana Nelson MR#: [id number]
[2016-05-21] MEDS: SODIUM CHLORIDE 0.9% FLUSH 10 ML FLUSH IV FLUSH SCH ×2 (09:00→21:00)
[2016-05-21] MEDS: guaiFENesin E.R. 600 MG TAB PO SCH ×2 (09:17→20:26)
[2016-05-21] MEDS: ASCORBIC ACID 500 MG TAB PO SCH (09:17)
[2016-05-21] MEDS: SERTRALINE HCL 50 MG TAB PO SCH (09:17)
[2016-05-21] MEDS: DILTIAZEM-CD 240 MG CAP ER PO SCH (09:17)
[2016-05-21] MEDS: LOSARTAN 50 MG TAB PO SCH (09:17)
[2016-05-21] MEDS: METOPROLOL SUCCINATE 50 MG EXTENDED RELEASE TAB PO SCH ×2 (09:18→20:26)
[2016-05-21] MEDS: NICOTINE 21 MG/24 HR PATCH TD SCH (09:18)
[2016-05-21] MEDS: FERROUS SULFATE 325 MG (65 MG ELEMENTAL IRON) TAB PO SCH ×2 (09:18→20:26)
[2016-05-21] MEDS: BUDESONIDE-FORMOTEROL 160/4.5 MCG INHALER INH SCH (09:26)
[2016-05-21] MEDS: THEOPHYLLINE 100 MG EXTENDED RELEASE CAP PO SCH (09:26)
[2016-05-21] MEDS: TIOTROPIUM BROMIDE 18 MCG INH INH SCH (09:26)
[2016-05-21] MEDS: THEOPHYLLINE 200 MG EXTENDED RELEASE CAP PO SCH (09:26)
[2016-05-21 11:46] LABS: HEMATOCRIT 22.7 % (35.0-46.0); REVIEW FLAG FINAL
[2016-05-21] MEDS: ACETAMINOPHEN 500 MG CPLT PO PRN (12:04)
--- NOTE | 2016-05-21 12:32 | HHI.PR ---
Subjective Remarks Patient seen and examined. Patient states she's feeling well this morning. Using her CPAP machine. Underwent colonoscopy earlier today but still having some gaseous distention and mild abdominal pain as result. Also reports some low back pain for which she just Tylenol for. Reports rash underneath both arms , on the back and in the groin. She is requesting Nystatin. She denies any chest pain or change in her chronic shortness of breath. Objective Vitals Vital Signs Date Time Temp Pulse Resp B/P Pulse Ox O2 Delivery O2 Flow Rate FiO2 05/21/16 08:15 75 15 118/56 98 05/21/16 08:00 96.7 73 20 127/53 98 05/21/16 08:00 74 15 115/50 98 05/21/16 07:50 98.2 72 15 110/48 100 05/21/16 07:05 98.0 70 16 140/63 100 05/21/16 04:00 96.9 64 20 156/67 100 05/21/16 00:00 98.0 61 20 142/63 99 05/20/16 20:20 99 Nasal Cannula 3.00 05/20/16 20:00 61 05/20/16 20:00 97.1 109 19 138/71 99 05/20/16 16:00 97.6 65 20 147/77 99 05/20/16 15:00 100 Nasal Cannula 3.00 I/O 05/20/16 05/20/16 05/20/16 05/21/16 05/21/16 05/21/16 07:00 15:00 23:00 07:00 15:00 23:00 Intake Total 489 ml 1100 ml 802 ml 398 ml 400 ml Balance 489 ml 1100 ml 802 ml 398 ml 400 ml Intake Oral 1100 ml IV Total 489 ml 802 ml 398 ml Other 400 ml # Voids 2 5 6 3 # Bowel Movements 2 6 3 Result Diagram: 05/21/16 1140 05/21/16 0509 Objective Remarks GENERAL: This is a well-nourished, well-developed patient, in no apparent distress. Sleepy but easily arousable. SKIN: Livia rash. HEAD: Atraumatic. Normocephalic. CARDIOVASCULAR: Regular rate and rhythm without murmurs, gallops, or rubs. RESPIRATORY: Clear to auscultation. Slightly diminished breath sounds equal bilaterally. No wheezes, rales, or rhonchi. GASTROINTESTINAL: Abdomen soft, non-tender, nondistended. No hepato-splenomegaly , or palpable masses. No guarding. MUSCULOSKELETAL: Extremities without clubbing, cyanosis, or edema. No joint tenderness, effusion, or edema noted. No calf tenderness. NEUROLOGICAL: Awake and alert. Patient moves all 4 extremities. No focal neurologic findings appreciated. Medications and IVs Current Medications Medications (Trade) Dose Ordered Sig/Keagan Route Start Time Stop Time Status Last Admin (Protonix Inj/NS Inj) 100 ml @ 10 mls/hr Q10H IV 05/19/16 10:00 05/21/16 12:28 (NS Flush) 2 ml UNSCH PRN IV FLUSH 05/19/16 13:00 (NS Flush) 2 ml BID IV FLUSH 05/19/16 21:00 05/21/16 09:00 (Zofran Inj) 4 mg Q6H PRN IVP 05/19/16 13:00 (Narcan Inj) 0.4 mg UNSCH PRN IV 05/19/16 13:00 (Vitamin C) 500 mg DAILY PO 05/20/16 09:00 05/21/16 09:17 (Symbicort 160-4.5 Inh) 2 puff DAILY INH 05/20/16 09:00 05/21/16 09:26 (Cardizem Cd) 240 mg DAILY PO 05/20/16 09:00 05/21/16 09:17 (Tricor) 145 mg HS PO 05/19/16 21:00 05/20/16 21:27 (Ferrous Sulfate) 325 mg BID PO 05/19/16 21:00 05/21/16 09:18 (Mucinex Er) 600 mg BID PO 05/19/16 21:00 05/21/16 09:17 (Imdur) 30 mg DAILY@07 PO 05/20/16 07:00 05/21/16 06:45 (Cozaar) 100 mg DAILY PO 05/20/16 09:00 05/21/16 09:17 (Toprol Xl) 50 mg BID PO 05/19/16 21:00 05/21/16 09:18 (Singulair) 5 mg HS PO 05/19/16 21:00 05/20/16 21:28 (Zoloft) 50 mg DAILY PO 05/20/16 09:00 05/21/16 09:17 (Spiriva Inh) 18 mcg DAILY INH 05/20/16 09:00 05/21/16 09:26 (D50w (Vial) Inj) 25 ml UNSCH PRN IV PUSH 05/19/16 17:00 (Glucagon Inj) 1 mg UNSCH PRN OTHER 05/19/16 17:00 (Lawrence-24) 100 mg DAILY PO 05/20/16 09:00 05/21/16 09:26 Theophylline 200 mg 200 mg DAILY PO 05/20/16 09:00 05/21/16 09:26 (D5W-1/2 NS 1000 ml Inj) 1,000 ml @ 42 mls/hr [id number] IV 05/19/16 18:15 05/20/16 16:34 (Habitrol 21 Mg Patch.24 Hr) 1 patch DAILY TD 05/20/16 11:30 05/21/16 09:18 Miscellaneous Information 1 HS TD 05/20/16 21:00 05/20/16 21:30 (Pill Splitter) 1 ea UNSCH PRN OTHER 05/20/16 22:45 (Tylenol) 500 mg Q4H PRN PO 05/21/16 12:00 05/21/16 12:04 (Mycostatin Powder) 1 applic Q12HR TOPICAL 05/21/16 13:00 A/P Assessment and Plan 75-year-old female with past medical history significant for COPD with continued tobacco use, hypertension, CAD with previous DC, CHF, osteoarthritis, diabetes, GERD and sleep apnea CPAP compliant who was just admitted to the hospital on 05/09/16 with complaints of symptomatic anemia secondary to GI bleed who presents to [facility] ED with complaints of dark brown stool concerning for blood 2. Melena suspect GI bleed - GI following, very much appreciate their assistance. Patient status post colonoscopy today. Awaiting operative report but surgically case record states colon ulcers present. - Continue clear liquid diet per GI orders - Hemoglobin continues to drop, now 7.0. Will repeat lab and if hemoglobin continues to fall will transfuse. Discussed with patient who is agreeable. - type and screen ordered in ED - Continue with Protonix drip as initiated in ED ANTOINA on CKD - Resolved COPD - Continue bronchodilators - Continue home Singulair and theophylline - Duonebs prn Diabetes - Continue home metformin - Accu-Cheks - Insulin sliding scale Hypertension - Well-controlled - Continue home meds - Monitor BP CAD, recent DC, history of CHF - Continue home meds - Monitor for signs of fluid overload Depression/anxiety - Continue medications SAVANNA - Continue to utilize home CPAP PRETTY - Continue oral iron repletion DVT prophylaxis - Chemoprophylaxis contraindicated due to active bleed - SCD/ARIN hose Written by Jocelyne Moore PA-C acting as scribe for Dr. Jules on 05/21/16 at 11:28. All or portions of this note were transcribed by scribe Jocelyne Moore PA-C. I, Dr. Hector Jules personally performed the history, physical exam, and medical decision making; and confirmed the accuracy of the information in the transcribed note. Authenticated by Dr. Hector Jules on 05/21/16 at 14:08. Jocelyne Moore May 21, 2016 12:32 Hector Jules MD May 21, 2016 14:10
[2016-05-21] MEDS: NYSTATIN 100,000 U/GM PWD 15 GM BTL TOPICAL SCH ×2 (14:37→22:23)
[2016-05-21] MEDS ORDERED: PROPOFOL 200 MG/20 ML AMP IV ONE (14:49)
[2016-05-21 17:31] LABS: HEMATOCRIT 23.1 % (35.0-46.0)
[2016-05-21 17:34] LABS: REVIEW FLAG FINAL
[2016-05-21] MEDS: DEXT 5%-NACL 0.45% 1000 ML INJ 1,000 ML IV SCH (17:53)
[2016-05-21] MEDS: FENOFIBRATE 145 MG TAB PO SCH (20:26)
[2016-05-21] MEDS: MONTELUKAST SODIUM 10 MG TAB PO SCH (20:27)
[2016-05-21] MEDS: REMOVE OLD NICODERM (NICOTINE) PATCH TD SCH (21:00)
[2016-05-21 22:50] LABS: HEMATOCRIT 23.3 % (35.0-46.0)
[2016-05-21 23:01] LABS: REVIEW FLAG FINAL
[2016-05-22] VITALS (11 sets, daily range): BP systolic 135–150; BP diastolic 56–63; PULSE 64–84; RESP 18–20; TEMP 97.1–99; O2SAT 94–99
[2016-05-22] MEDS: ISOSORBIDE MONONITRATE 30 MG TAB PO SCH (06:30)
[2016-05-22] MEDS: INSULIN ASPART SUPPLEMENTAL SCALE SQ SCH ×4 (06:42→21:00)
[2016-05-22] MEDS: ACETAMINOPHEN 500 MG CPLT PO PRN ×2 (06:50→23:02)
[2016-05-22 07:57] LABS: HEMATOCRIT 23.5 % (35.0-46.0)
[2016-05-22 07:58] LABS: REVIEW FLAG FINAL
[2016-05-22] MEDS: BUDESONIDE-FORMOTEROL 160/4.5 MCG INHALER INH SCH (09:10)
[2016-05-22] MEDS: TIOTROPIUM BROMIDE 18 MCG INH INH SCH (09:10)
[2016-05-22] MEDS: FERROUS SULFATE 325 MG (65 MG ELEMENTAL IRON) TAB PO SCH ×2 (09:10→20:55)
[2016-05-22] MEDS: NICOTINE 21 MG/24 HR PATCH TD SCH (09:10)
[2016-05-22] MEDS: guaiFENesin E.R. 600 MG TAB PO SCH ×2 (09:10→20:55)
[2016-05-22] MEDS: THEOPHYLLINE 200 MG EXTENDED RELEASE CAP PO SCH (09:11)
[2016-05-22] MEDS: METOPROLOL SUCCINATE 50 MG EXTENDED RELEASE TAB PO SCH ×2 (09:11→20:56)
[2016-05-22] MEDS: THEOPHYLLINE 100 MG EXTENDED RELEASE CAP PO SCH (09:11)
[2016-05-22] MEDS: LOSARTAN 50 MG TAB PO SCH (09:11)
[2016-05-22] MEDS: DILTIAZEM-CD 240 MG CAP ER PO SCH (09:11)
[2016-05-22] MEDS: ASCORBIC ACID 500 MG TAB PO SCH (09:11)
[2016-05-22] MEDS: NYSTATIN 100,000 U/GM PWD 15 GM BTL TOPICAL SCH ×2 (10:41→21:51)
--- NOTE | 2016-05-22 12:12 | HHI.PR ---
Subjective Remarks Follow up on patient with anemia. Patient lying in bed side hospital recliner. Reports feeling well. Tolerating clears. Requesting if she can eat real food. Denies any further blood in the stool. No complaints of chest pain, N/V or abdominal pain. No change in her chronic shortness of breath. Objective Vitals Vital Signs Date Time Temp Pulse Resp B/P Pulse Ox O2 Delivery O2 Flow Rate FiO2 05/22/16 12:00 97.5 76 20 141/60 97 05/22/16 10:50 96 Nasal Cannula 3.00 05/22/16 08:00 64 05/22/16 08:00 97.1 73 20 145/63 98 05/22/16 04:00 97.8 70 20 142/62 94 05/22/16 00:00 98.1 66 20 147/59 99 05/21/16 20:05 98 Nasal Cannula 3.00 05/21/16 20:00 97.4 67 20 155/63 96 05/21/16 20:00 68 05/21/16 17:10 98 Nasal Cannula 3.00 05/21/16 16:00 98.0 70 20 142/66 98 I/O 05/21/16 05/21/16 05/21/16 05/22/16 05/22/16 05/22/16 07:00 15:00 23:00 07:00 15:00 23:00 Intake Total 398 ml 1300 ml 240 ml 892 ml Output Total 500 ml 40 ml Balance 398 ml 1300 ml -260 ml 852 ml Intake Oral 900 ml 240 ml 60 ml IV Total 398 ml 832 ml Other 400 ml Output Urine Total 500 ml 40 ml # Voids 3 5 1 1 # Bowel Movements 3 1 0 0 Result Diagram: 05/22/16 0750 05/21/16 0509 Objective Remarks GENERAL: This is a well-nourished, well-developed patient, in no apparent distress. Pleasant and cooperative. A&Ox3. SKIN: Livia rash. HEAD: Atraumatic. Normocephalic. CARDIOVASCULAR: Regular rate and rhythm without murmurs, gallops, or rubs. RESPIRATORY: Some scattered wheezing noted. Slightly diminished breath sounds equal bilaterally. GASTROINTESTINAL: Abdomen soft, non-tender, nondistended. No hepato-splenomegaly , or palpable masses. No guarding. MUSCULOSKELETAL: Extremities without clubbing, cyanosis, or edema. No joint tenderness, effusion, or edema noted. No calf tenderness. NEUROLOGICAL: Awake and alert. Patient moves all 4 extremities. No focal neurologic findings appreciated. Medications and IVs Current Medications Medications (Trade) Dose Ordered Sig/Keagan Route Start Time Stop Time Status Last Admin (Protonix Inj/NS Inj) 100 ml @ 10 mls/hr Q10H IV 05/19/16 10:00 05/21/16 22:50 (NS Flush) 2 ml UNSCH PRN IV FLUSH 05/19/16 13:00 (Zofran Inj) 4 mg Q6H PRN IVP 05/19/16 13:00 (Narcan Inj) 0.4 mg UNSCH PRN IV 05/19/16 13:00 (Vitamin C) 500 mg DAILY PO 05/20/16 09:00 05/22/16 09:11 (Symbicort 160-4.5 Inh) 2 puff DAILY INH 05/20/16 09:00 05/22/16 09:10 (Cardizem Cd) 240 mg DAILY PO 05/20/16 09:00 05/22/16 09:11 (Tricor) 145 mg HS PO 05/19/16 21:00 05/21/16 20:26 (Ferrous Sulfate) 325 mg BID PO 05/19/16 21:00 05/22/16 09:10 (Mucinex Er) 600 mg BID PO 05/19/16 21:00 05/22/16 09:10 (Imdur) 30 mg DAILY@07 PO 05/20/16 07:00 05/22/16 06:30 (Cozaar) 100 mg DAILY PO 05/20/16 09:00 05/22/16 09:11 (Toprol Xl) 50 mg BID PO 05/19/16 21:00 05/22/16 09:11 (Singulair) 5 mg HS PO 05/19/16 21:00 05/21/16 20:27 (Zoloft) 50 mg DAILY PO 05/20/16 09:00 05/21/16 09:17 (Spiriva Inh) 18 mcg DAILY INH 05/20/16 09:00 05/22/16 09:10 (D50w (Vial) Inj) 25 ml UNSCH PRN IV PUSH 05/19/16 17:00 (Glucagon Inj) 1 mg UNSCH PRN OTHER 05/19/16 17:00 (Lawrence-24) 100 mg DAILY PO 05/20/16 09:00 05/22/16 09:11 Theophylline 200 mg 200 mg DAILY PO 05/20/16 09:00 05/22/16 09:11 (D5W-1/2 NS 1000 ml Inj) 1,000 ml @ 42 mls/hr [id number] IV 05/19/16 18:15 05/21/16 17:53 (Habitrol 21 Mg Patch.24 Hr) 1 patch DAILY TD 05/20/16 11:30 05/22/16 09:10 Miscellaneous Information 1 HS TD 05/20/16 21:00 05/21/16 21:00 (Pill Splitter) 1 ea UNSCH PRN OTHER 05/20/16 22:45 (Tylenol) 500 mg Q4H PRN PO 05/21/16 12:00 05/22/16 06:50 (Mycostatin Powder) 1 applic Q12HR TOPICAL 05/21/16 13:00 05/22/16 10:41 IV Flush 2 ml 2 ml BID IV FLUSH 05/22/16 21:00 (NS 250 ml Inj) 250 ml @ 15 mls/hr ONCE ONCE IV 05/22/16 15:30 05/23/16 08:09 (Tylenol) 650 mg Q4H PRN PO 05/22/16 15:30 05/22/16 19:31 UNV (Benadryl) 25 mg Q4H PRN PO 05/22/16 15:30 05/22/16 19:31 A/P Assessment and Plan 75-year-old female with past medical history significant for COPD with continued tobacco use, hypertension, CAD with previous UT, CHF, osteoarthritis, diabetes, GERD and sleep apnea CPAP compliant who was just admitted to the hospital on 05/09/16 with complaints of symptomatic anemia secondary to GI bleed who presents to [facility] ED with complaints of dark brown stool concerning for blood 2. Rectal bleed - GI following, very much appreciate their assistance. Patient status post colonoscopy showing one small polyp ablated in the cecum, polypectomy and 2 large ulcers in the ascending colon most likely related to previous polypectomy site. - Continue clear liquid diet per GI orders. Hopefully will be able to advance today. - No further evidence of bleeding. DC protonix drip changed to by mouth Protonix 40 mg twice a day - Hemoglobin continues to hover around 7.1. Hematology consulted and ordered blood transfusion. ANTONIA on CKD - Resolved COPD - Continue bronchodilators - Continue home Singulair and theophylline - Duonebs prn Diabetes - Continue home metformin - Accu-Cheks - Insulin sliding scale Hypertension - adequate control - Continue home meds - Monitor BP CAD, recent UT, history of CHF - Continue home meds - Monitor for signs of fluid overload Depression/anxiety - Continue medications SAVANNA - Continue to utilize home CPAP PRETTY - Continue oral iron repletion - Hematology consultation and iron studies ordered. Follow up on results. DVT prophylaxis - Chemoprophylaxis contraindicated due to active bleed - SCD/ARIN hose Written by Jocelyne Moore PA-C acting as scribe for Dr. Jules on 05/22/16 at 10:28. All or portions of this note were transcribed by scribe Jocelyne Moore PA-C. I, Dr. Hector Jules personally performed the history, physical exam, and medical decision making; and confirmed the accuracy of the information in the transcribed note. Authenticated by Dr. Hector Jules on 05/22/16 at 18:58. Jocelyne Moore May 22, 2016 12:12 Hector Jules MD May 22, 2016 18:58
[2016-05-22] MEDS ORDERED: SODIUM CHLOR 0.9% 250 ML INJ 250 ML IV ONE (15:30)
[2016-05-22] MEDS ORDERED: ACETAMINOPHEN 325 MG TAB PO PRN (15:30)
[2016-05-22] MEDS ORDERED: diphenhydrAMINE HCL 25 MG CAP PO PRN (15:30)
--- NOTE | 2016-05-22 15:47 | HHI.GIFU ---
GI Follow-up Note Consult Follow-up Subjective: Patient laying in bed comfortably, no new complaints except SOB, no bleeding Objective: PHYSICAL EXAMINATION: Vitals signs stable No fever HEENT: Pupils round and reactive to light; normocephalic; atraumatic; no jaundice. Throat is clear. NECK: Neck is supple, no JVD, no lymphadenopathy. CHEST: Chest is clear to auscultation and percussion. CARDIAC: Regular rate and rhythm with no murmur gallop or rubs. ABDOMEN: Soft, nondistended, nontender; no hepatosplenomegaly; bowel sounds are present in all four quadrants. EXTREMITIES: No clubbing, cyanosis, or edema. SKIN: Normal; no rash; no jaundice. STATE ARCHIVIST: No focal deficits; alert and oriented times three. Available Data (labs, X- Rays, Procedues) : Laboratory Tests Test 05/20/16 05/21/16 05/21/16 05/21/16 18:10 05:09 11:40 17:18 Hemoglobin 8.3 GM/DL 7.4 GM/DL 7.0 GM/DL 7.1 GM/DL Hematocrit 26.7 % 23.9 % 22.7 % 23.1 % White Blood Count 5.5 TH/MM3 Red Blood Count 3.21 MIL/MM3 Mean Corpuscular Volume 74.4 FL Mean Corpuscular Hemoglobin 23.1 PG Mean Corpuscular Hemoglobin 31.0 % Concent Red Cell Distribution Width 27.0 % Platelet Count 266 TH/MM3 Mean Platelet Volume 9.0 FL Neutrophils (%) (Auto) 66.3 % Lymphocytes (%) (Auto) 23.2 % Monocytes (%) (Auto) 8.6 % Eosinophils (%) (Auto) 1.6 % Basophils (%) (Auto) 0.3 % Neutrophils # (Auto) 3.6 TH/MM3 Lymphocytes # (Auto) 1.3 TH/MM3 Monocytes # (Auto) 0.5 TH/MM3 Eosinophils # (Auto) 0.1 TH/MM3 Basophils # (Auto) 0.0 TH/MM3 CBC Comment AUTO DIFF Differential Comment AUTO DIFF CONFIRMED Platelet Estimate NORMAL Platelet Morphology Comment NORMAL Tear Drop Cells 1+ Ovalocytes 2+ Sodium Level 144 MEQ/L Potassium Level 3.7 MEQ/L Chloride Level 102 MEQ/L Carbon Dioxide Level 33.7 MEQ/L Anion Gap 8 MEQ/L Blood Urea Nitrogen 9 MG/DL Creatinine 0.72 MG/DL Estimat Glomerular Filtration 79 ML/MIN Rate Random Glucose 98 MG/DL Calcium Level 8.8 MG/DL Test 05/21/16 05/22/16 22:45 07:50 Hemoglobin 7.2 GM/DL 7.1 GM/DL Hematocrit 23.3 % 23.5 % Allergies Coded Allergies Type Severity Reaction Last Updated Verified Codeine Allergy Severe 05/19/16 Yes Penicillin Allergy Severe 05/19/16 No Uncoded Allergies Type Severity Reaction Last Updated Verified CRABS Allergy Intermediate . 05/09/16 Active Scripts Medications Dose Route/Sig Days Date Category Dose Instructions Prednisone (48) 5 mg tab Dose Pack (Prednisone) 5 Mg Dspk 5 Mg PO DIRECTED 05/17/16 Rx Pantoprazole (Pantoprazole Sodium) 40 Mg Tab 40 Mg PO DAILY 05/17/16 Rx Mucinex ER 12 HR (Guaifenesin) 600 Mg Gilberto 600 Mg PO BID 05/17/16 Rx Ferrous Sulfate 325 Mg Tab 325 Mg PO BID 05/17/16 Rx Vitamin C (Ascorbic Acid) 500 Mg Tab 500 Mg PO DAILY 05/17/16 Rx Sertraline (Sertraline HCl) 50 Mg Tab 50 Mg PO DAILY 05/10/16 Reported Losartan (Losartan Potassium) 100 Mg Tab 100 Mg PO DAILY 05/09/16 Reported Theophylline ER 24 HR (Theophylline) 400 Mg Tab 300 Mg PO DAILY 05/09/16 Reported Spiriva Handihaler (Tiotropium Inh) 18 Mcg Cap 18 Mcg INH DAILY 05/09/16 Reported 1 capsule = 18 mcg Micro-K (Potassium Chloride) 10 Meq Cap 20 Meq PO BID 05/09/16 Reported Protonix (Pantoprazole Sodium) 40 Mg Tab 40 Mg PO DAILY 05/09/16 Reported Singulair (Montelukast Sodium) 5 Mg Chew 5 Mg CHEW HS 05/09/16 Reported Toprol XL (Metoprolol Succinate) 50 Mg Tab 50 Mg PO BID 05/09/16 Reported Metformin (Metformin HCl) 1,000 Mg Tab 1,000 Mg PO BIDPC 05/09/16 Reported With meals Isosorbide Mononitrate ER (Isosorbide Mononitrate) 30 Mg Gilberto 30 Mg PO DAILY 05/09/16 Reported Lasix (Furosemide) 40 Mg Tab 40 Mg PO BID 05/09/16 Reported Fenofibrate 145 Mg Tab 145 Mg PO HS 05/09/16 Reported Dilt-Xr (Diltiazem HCl) 240 Mg Caper 240 Mg PO DAILY 05/09/16 Reported Symbicort Inh (Budesonide/Formoterol Fumarate) 160-4.5 Mcg/Act Aero 2 Puff INH DAILY 05/09/16 Reported ASSESSMENT/PLAN: Seen and examined, no bleeding reported. Hb at around &. Advance diet. S/P colonoscopy with fulguration of polyp and previous polypectomy site. Monitor H/H. It was a pleasure seeing Daiana Nelson. Thank you for this consult. Entered by: Gil Schaefer MD May 22, 2016 15:47
[2016-05-22] MEDS: SERTRALINE HCL 50 MG TAB PO SCH (16:00)
[2016-05-22 16:27] LABS: HEMATOCRIT 24.8 % (35.0-46.0)
[2016-05-22 16:29] LABS: REVIEW FLAG FINAL
--- NOTE | 2016-05-22 19:20 | MB ---
cc: YAMILE PARSONS MD DATE OF CONSULTATION 05/22/16 REASON FOR CONSULTATION Consult requested by Dr. Jules for evaluation of iron deficiency anemia. HISTORY OF PRESENT ILLNESS Daiana is a pleasant 75-year-old female. She is well-known to me. Recently she was admitted to the hospital for GI bleeding. She had multiple transfusions. She had iron deficiency anemia and she was given Venofer IV times three days and she was discharged to home. The patient now has come back to the hospital for dark stools. She has GI bleeding and now she is admitted to the hospital. GI has been consulted. They did the colonoscopy and did the fulguration of the polyp and cauterization of the previous polypectomy site, where it looks like the patient was bleeding from. The bleeding seems to have stopped. Her hemoglobin on admission was in 8.6 and came down to 7.1. I have been asked to see her for further evaluation. The patient is still complaining of weakness, tiredness, fatigue. She denies any nausea or vomiting, diarrhea, constipation. She stated that the blood in her stools seems like it has stopped now. The rest of the review of systems is negative. PAST MEDICAL HISTORY 1. Recent history of GI bleeding 2. Chronic obstructive pulmonary disease 3. Coronary artery disease status post NE, 4. Congestive heart failure, 5. Diabetes mellitus, 6. Hypercholesteremia, 7. Hypertension, 8. Osteoarthritis, 9. Anxiety depression. PAST SURGICAL HISTORY 1. Partial colectomy for benign tumor 2. Hysterectomy, 3. Cholecystectomy, 4. Right shoulder surgery, 5. Multiple breast biopsies, 6. Tonsillectomy, 7. Bunionectomy 8. Appendectomy 9. Ganglion cyst. ALLERGIES CODEINE PENICILLIN MEDICATIONS Please see EMR. FAMILY HISTORY Noncontributory. SOCIAL HISTORY The patient has a history of heavy cigarette smoking, one pack a day since age 15. She does not drink alcohol. PHYSICAL EXAMINATION GENERAL: A well-developed elderly white female in no apparent distress. VITAL SIGNS: Temperature 97.1, heart rate 73, blood pressure is 145/63, O2 saturation 98% on three liters nasal cannula. HEENT: PERRLA, EOMI, anicteric. No oral lesions are noted. NECK: Supple. LYMPH: There is no cervical, supraclavicular or axillary lymphadenopathy noted. LUNGS: Clear. No wheezing, rhonchi or rales. HEART: Regular rate and rhythm. ABDOMEN: Soft, nontender. No hepatosplenomegaly. EXTREMITIES: No pedal edema. NEUROLOGIC: Awake, alert, oriented times threes SKIN: No significant lesions are noted. ASSESSMENT 1. GI bleeding status post polypectomy status post fulguration of the polyp status post cauterization of the previous polypectomy site. 2. Iron deficiency anemia. The source of the iron loss is GI bleeding. Status post iron infusion. PLAN I have reviewed her available records and I have discussed with the patient regarding the persistent anemia. The patient had received iron infusion and blood transfusion on her last visit. Her CBC on the day of admission 05/19 showed white count 9.6, hemoglobin 8.6, hematocrit 27.5, MCV 72, MCH is 22, platelet count is 338. Her hemoglobin yesterday dropped to 7.4 and today hemoglobin is down to 7.1. My recommendation is to give her 2 units of blood transfusion. I will repeat the iron studies to see whether the patient would need further iron infusion. If the iron studies show that she has iron-deficiency then we will give her IV iron. Because of the symptomatic anemia, we will give her 2 units of blood transfusion today. If the patient remains stable over the weekend then she could be discharged and she can come to our office sometime next week for followup of her anemia. Thank you for asking my opinion. Gamal Parsons MD / /4:12 PM /7:01 PM
[2016-05-22] MEDS ORDERED: IRON SUCROSE INJ 100 MG in SODIUM CHLORIDE 0.9% INJ 100 ML IV SCH (20:00)
[2016-05-22] MEDS: MONTELUKAST SODIUM 10 MG TAB PO SCH (20:55)
[2016-05-22] MEDS: FENOFIBRATE 145 MG TAB PO SCH (20:56)
[2016-05-22] MEDS: PANTOPRAZOLE SOD 40 MG DELAYED RELEASE TAB PO SCH (20:56)
[2016-05-22] MEDS: SODIUM CHLORIDE 0.9% FLUSH 5 ML FLUSH IV FLUSH SCH (20:56)
[2016-05-22] MEDS: REMOVE OLD NICODERM (NICOTINE) PATCH TD SCH (21:00)
[2016-05-22] MEDS: IRON SUCROSE INJ 100 MG in SODIUM CHLORIDE 0.9% INJ 100 ML IV SCH (22:57)
[2016-05-23] VITALS (8 sets, daily range): BP systolic 140–166; BP diastolic 60–72; PULSE 57–88; RESP 18–20; TEMP 96.8–99; O2SAT 94–99
[2016-05-23] MEDS: ISOSORBIDE MONONITRATE 30 MG TAB PO SCH (06:35)
[2016-05-23] MEDS: INSULIN ASPART SUPPLEMENTAL SCALE SQ SCH ×4 (06:37→20:50)
[2016-05-23 07:31] LABS: AUTOMATED NEUTROPHIL # 4.4 TH/MM3 (1.8-7.7); BASOPHIL % 0.1 % (0.0-2.0); EOSINOPHIL # 0.1 TH/MM3 (0-0.4); EOSINOPHIL % 0.9 % (0.0-4.0); HEMATOCRIT 24.9 % (35.0-46.0); LYMPH % 13.1 % (9.0-44.0); LYMPHOCYTE # 0.8 TH/MM3 (1.0-4.8); MEAN CELL VOLUME 76.6 FL (80.0-100.0); MEAN CORPUSCULAR HEMOGLOBIN 23.9 PG (27.0-34.0); MEAN CORPUSCULAR HGB CONC 31.2 % (32.0-36.0); MONO % 9.6 % (0.0-8.0); NEUT % 76.3 % (16.0-70.0); PLATELET COUNT 259 TH/MM3 (150-450); RED BLOOD COUNT 3.25 MIL/MM3 (4.00-5.30); RED CELL DISTRIBUTION WIDTH 26.6 % (11.6-17.2); WHITE BLOOD COUNT 5.9 TH/MM3 (4.0-11.0)
[2016-05-23 07:38] LABS: HEMO FLAGS AUTO DIFF
[2016-05-23 08:25] LABS: SCAN/DIFF AUTO DIFF CONFIRMED
[2016-05-23] MEDS: BUDESONIDE-FORMOTEROL 160/4.5 MCG INHALER INH SCH (09:44)
[2016-05-23] MEDS: TIOTROPIUM BROMIDE 18 MCG INH INH SCH (09:44)
[2016-05-23] MEDS: NICOTINE 21 MG/24 HR PATCH TD SCH (09:45)
[2016-05-23] MEDS: THEOPHYLLINE 200 MG EXTENDED RELEASE CAP PO SCH (09:46)
[2016-05-23] MEDS: THEOPHYLLINE 100 MG EXTENDED RELEASE CAP PO SCH (09:46)
[2016-05-23] MEDS: SODIUM CHLORIDE 0.9% FLUSH 5 ML FLUSH IV FLUSH SCH ×2 (09:47→20:43)
[2016-05-23] MEDS: DILTIAZEM-CD 240 MG CAP ER PO SCH (09:47)
[2016-05-23] MEDS: guaiFENesin E.R. 600 MG TAB PO SCH ×2 (09:47→20:43)
[2016-05-23] MEDS: METOPROLOL SUCCINATE 50 MG EXTENDED RELEASE TAB PO SCH ×2 (09:47→20:42)
[2016-05-23] MEDS: FERROUS SULFATE 325 MG (65 MG ELEMENTAL IRON) TAB PO SCH ×2 (09:47→20:43)
[2016-05-23] MEDS: LOSARTAN 50 MG TAB PO SCH (09:47)
[2016-05-23] MEDS: ASCORBIC ACID 500 MG TAB PO SCH (09:47)
[2016-05-23] MEDS: DEXT 5%-NACL 0.45% 1000 ML INJ 1,000 ML IV SCH (09:48)
[2016-05-23] MEDS: SERTRALINE HCL 50 MG TAB PO SCH (10:04)
[2016-05-23] MEDS: NYSTATIN 100,000 U/GM PWD 15 GM BTL TOPICAL SCH ×2 (10:04→21:00)
[2016-05-23] MEDS: PANTOPRAZOLE SOD 40 MG DELAYED RELEASE TAB PO SCH ×2 (10:04→20:43)
[2016-05-23] MEDS: IRON SUCROSE INJ 100 MG in SODIUM CHLORIDE 0.9% INJ 100 ML IV SCH (10:04)
--- NOTE | 2016-05-23 11:52 | MB ---
cc: AMANDA JULES,QUENTIN Plata M.D. DATE OF CONSULTATION: 05/22/2016 DATE OF : [address] Jules[address] CHIEF COMPLAINT [address] Jules requested a consultation for Mrs. Nelson regarding iron deficiency anemia associated with recent GI bleed post polypectomy. HISTORY OF PRESENT ILLNESS Mrs. Nelson is a pleasant 75-year-old woman well-known patient to my partner Dr. Gamal Parsons for a recent consultation on May 15, 2016. Mrs. Nelson has a history of myocardial infarction, hypertension, congestive heart failure, diabetes and COPD. She was short of breath and was found to have a hemoglobin of 5.7. She was transfused to have an improvement of hemoglobin of 7.9. Her iron studies show evidence of iron deficiency with a ferritin of 10, TIBC of 503, serum iron of 22. Her anemia was microcytic in nature with an MCV of 62 on admission. During the course of the admission, she was seen by Gastroenterology and had a GI procedure coordinated by Dr. Sai Rubin. The findings show a normal esophagus, mucosa of the stomach appeared normal as well as the duodenum. A colonoscopy was performed which showed sessile polyps that were removed, diverticulosis in the sigmoid colon, mucosa was otherwise normal. Her hemoglobin improved to 7.8. She was discharged home with followup with Dr. Parsons on an outpatient basis to continue treatment of her iron deficiency. Prior to having the opportunity to followup in the hematology clinic on outpatient basis, she developed black tarry stools. She presented to the emergency room on 05/19. She came in with a hemoglobin of 8.6 but her stools were dark. Gastroenterology was consulted. Repeat colonoscopy was performed by Dr. Alecia Graham. The findings include ulcers in the ascending colon with clots, most likely site of the previous polypectomy and the source of GI bleed. The clots were removed and the ulcer was ablated with heat. There was the same moderate diverticulosis in the sigmoid colon, there is a lipoma in the sigmoid colon and a 5 mm polyp in the cecum that was also ablated with heat, a 1 cm polyp in ascending colon removed and snared. Her hemoglobin decreased to 7 however it stabilized. Most recent hemoglobin is 7.7. at the time of the consultation. Dr. Parsons Hematology/Oncology was reconsulted in light of the anemia. REVIEW OF SYSTEMS Mrs. Nelson reports doing well at home. She claims to be anemic all her life. She denies any overt bleeding until recently. She denies any nausea or vomiting. She thought she was seen by hematology earlier. She has not had the opportunity to follow as an outpatient. She had no trouble with the blood transfusion. She has no headaches, no vision changes. The rest of her review of systems is negative. PAST MEDICAL HISTORY 1. Coronary artery disease. 2. Congestive heart failure. 3. Diabetes. 4. Hypertension. 5. COPD. 6. Gastroesophageal reflux. 7. Colonic polyp. 8. Iron deficiency anemia. 9. Hypercholesterolemia. 10. Sleep apnea. 11. Anxiety. 12. Depression. PAST SURGICAL HISTORY 1. Partial colectomy for benign tumor. 2. Hysterectomy. 3. Cholecystectomy. 4. Polypectomy. 5. Rotator cuff surgery. 6. Tonsillectomy. 7. Bunionectomy. 8. Appendectomy. 9. Hand surgery. ALLERGIES PENICILLIN AND CODEINE. FAMILY HISTORY No family history of anemia. SOCIAL HISTORY She lives with her son, his , his daughter and her two great granddaughters. She smokes a half a pack a day. She denies any alcohol or illicit drug use. PHYSICAL EXAMINATION VITAL SIGNS: Temperature 96.5, heart rate 81, respiratory rate 18, blood pressure 149/61, saturation 95%. GENERAL: Mrs. Nelson is a well-developed, well-nourished, elderly woman in some respiratory distress. She seems to be at her baseline however. HEAD, EYES, EARS, NOSE AND THROAT: Pupils are round, reactive to light and accommodation. Conjunctivae are pale. Oropharynx clear. NECK: Neck is supple. LUNGS: Lungs are with diminished breath sounds. CARDIOVASCULAR: Reveals a normal rate, rhythm. ABDOMEN: Abdomen is large but benign. LOWER EXTREMITIES: Lower extremities with no edema. Pneumatic compression stockings are in place. NEUROLOGIC: Exam is nonfocal. LABORATORY DATA Significant for H&H of 7.7. CBC yesterday shows a hemoglobin of 7.4, MCV 74.1, platelet count and white blood cell count are normal, BUN 9, creatinine 0.72. ASSESSMENT AND PLAN Mrs. Nelson is a 75-year-old woman with a long history of iron deficiency anemia. She was undergoing evaluation and then she was readmitted due to bleeding post her polypectomy. Supportive therapy is given. Her diet is being advanced. She is still seeing some dark colored stools. Her colon/polypectomy ulcer base was treated by Dr. Graham. We will continue to monitor her progress. She appears to be stabilized with a hemoglobin of 7.7. She is hemodynamically stable. We discussed deferring a blood transfusion to iron infusion. Blood bank was called. Her blood transfusion was held unless she opens up and bleeds excessively. Her hemoglobin seems to be trending up. Iron therapy is ordered for the next three days. However, we can continue until she is stable and ready to go home. She has followup with Dr. Parsons from her previous consultation to complete the rest of her iron therapy. I estimate her iron deficit to be over a gram. Her questions were answered to her satisfaction. MD LAURIE Burris/NAHOMI /7:22 PM /11:07 AM
--- NOTE | 2016-05-23 14:28 | HHI.PR ---
Subjective Remarks Follow up for anemia secondary to GI bleed. Patient states she feels well. Reports her shortness of breath has improved. No complete chest pain. Received 1 unit of blood yesterday. Tolerating advancing diet. No abdominal pain or nausea/vomiting. No new complaints at this time. Objective Vitals Vital Signs Date Time Temp Pulse Resp B/P Pulse Ox O2 Delivery O2 Flow Rate FiO2 05/23/16 12:00 98.1 88 18 166/67 97 05/23/16 08:00 98.1 72 18 151/71 97 05/23/16 07:50 19 05/23/16 06:00 60 05/23/16 04:00 98.3 57 20 147/72 98 05/23/16 00:45 96.8 72 20 140/60 99 05/22/16 21:30 98.0 84 18 139/58 97 05/22/16 21:15 98.1 80 18 141/59 98 05/22/16 20:16 76 05/22/16 20:15 98 Nasal Cannula 3.00 05/22/16 20:00 99.0 81 20 135/58 98 05/22/16 16:00 97.6 72 20 150/56 98 I/O 05/22/16 05/22/16 05/22/16 05/23/16 05/23/16 05/23/16 07:00 15:00 23:00 07:00 15:00 23:00 Intake Total 892 ml 2182 ml 240 ml 480 ml Output Total 40 ml Balance 852 ml 2182 ml 240 ml 480 ml Intake Oral 60 ml 1680 ml 240 ml 480 ml IV Total 832 ml 502 ml Output Urine Total 40 ml # Voids 1 3 1 3 # Bowel Movements 0 2 0 0 Result Diagram: 05/23/16 0710 05/21/16 0509 Objective Remarks GENERAL: This is a well-nourished, well-developed patient, in no apparent distress. Pleasant and cooperative. A&Ox3. Sitting on side of hospital bed. SKIN: Livia rash. HEAD: Atraumatic. Normocephalic. CARDIOVASCULAR: Regular rate and rhythm without murmurs, gallops, or rubs. RESPIRATORY: Some scattered wheezing noted. Slightly diminished breath sounds equal bilaterally. GASTROINTESTINAL: Abdomen soft, non-tender, nondistended. No hepato-splenomegaly , or palpable masses. No guarding. MUSCULOSKELETAL: Extremities without clubbing, cyanosis, or edema. No joint tenderness, effusion, or edema noted. No calf tenderness. NEUROLOGICAL: Awake and alert. Patient moves all 4 extremities. No focal neurologic findings appreciated. Medications and IVs Current Medications Medications (Trade) Dose Ordered Sig/Keagan Route Start Time Stop Time Status Last Admin (NS Flush) 2 ml UNSCH PRN IV FLUSH 05/19/16 13:00 (Zofran Inj) 4 mg Q6H PRN IVP 05/19/16 13:00 (Narcan Inj) 0.4 mg UNSCH PRN IV 05/19/16 13:00 (Vitamin C) 500 mg DAILY PO 05/20/16 09:00 05/23/16 09:47 (Symbicort 160-4.5 Inh) 2 puff DAILY INH 05/20/16 09:00 05/23/16 09:44 (Cardizem Cd) 240 mg DAILY PO 05/20/16 09:00 05/23/16 09:47 (Tricor) 145 mg HS PO 05/19/16 21:00 05/22/16 20:56 (Ferrous Sulfate) 325 mg BID PO 05/19/16 21:00 05/23/16 09:47 (Mucinex Er) 600 mg BID PO 05/19/16 21:00 05/23/16 09:47 (Imdur) 30 mg DAILY@07 PO 05/20/16 07:00 05/23/16 06:35 (Cozaar) 100 mg DAILY PO 05/20/16 09:00 05/23/16 09:47 (Toprol Xl) 50 mg BID PO 05/19/16 21:00 05/23/16 09:47 (Singulair) 5 mg HS PO 05/19/16 21:00 05/22/16 20:55 (Zoloft) 50 mg DAILY PO 05/20/16 09:00 05/23/16 10:04 (Spiriva Inh) 18 mcg DAILY INH 05/20/16 09:00 05/23/16 09:44 (D50w (Vial) Inj) 25 ml UNSCH PRN IV PUSH 05/19/16 17:00 (Glucagon Inj) 1 mg UNSCH PRN OTHER 05/19/16 17:00 (Lawrence-24) 100 mg DAILY PO 05/20/16 09:00 05/23/16 09:46 Theophylline 200 mg 200 mg DAILY PO 05/20/16 09:00 05/23/16 09:46 (D5W-1/2 NS 1000 ml Inj) 1,000 ml @ 42 mls/hr [id number] IV 05/19/16 18:15 05/23/16 09:48 (Habitrol 21 Mg Patch.24 Hr) 1 patch DAILY TD 05/20/16 11:30 05/23/16 09:45 Miscellaneous Information 1 HS TD 05/20/16 21:00 05/22/16 21:00 (Pill Splitter) 1 ea UNSCH PRN OTHER 05/20/16 22:45 (Tylenol) 500 mg Q4H PRN PO 05/21/16 12:00 05/22/16 23:02 (Mycostatin Powder) 1 applic Q12HR TOPICAL 05/21/16 13:00 05/23/16 10:04 (NS Flush) 2 ml BID IV FLUSH 05/22/16 21:00 05/23/16 09:47 Pantoprazole Sodium 40 mg 40 mg Q12HR PO 05/22/16 21:00 05/23/16 10:04 (Venofer Inj/NS Inj) 105 ml @ 105 mls/hr DAILY IV 05/22/16 22:00 05/24/16 09:59 05/23/16 10:04 Urinary Catheter: No Vascular Central Line Catheter: No A/P Assessment and Plan 75-year-old female with past medical history significant for COPD with continued tobacco use, hypertension, CAD with previous PR, CHF, osteoarthritis, diabetes, GERD and sleep apnea CPAP compliant who was just admitted to the hospital on 05/09/16 with complaints of symptomatic anemia secondary to GI bleed who presents to [facility] ED with complaints of dark brown stool concerning for blood 2. Rectal bleed - Readmitted due to bleeding post polypectomy - GI following, very much appreciate their assistance. Patient status post colonoscopy and cauterization of previous polypectomy site. - Tolerating advanced diet - No further evidence of bleeding. Continue on Protonix 40 mg twice a day Symptomatic anemia - Secondary to above - Hemoglobin improved, now 7.8. - Patient improving clinically with less shortness of breath - Hemoglobin continues to hover around 7.1. Hematology consulted and ordered pRBCs x 1 and iron infusion x 3 days. Patient has received 2 iron infusions thus far. - iron studies pending - Repeat H&H in a.m. ANTONIA - Resolved COPD - Continue bronchodilators - Continue home Singulair and theophylline - Duonebs prn Diabetes - Continue home metformin - Accu-Cheks - Insulin sliding scale - Changed to diabetic/heart healthy diet Hypertension - fair control - Continue home meds. Add hydralazine 10mg TID - Monitor BP response and adjust treatment as indicated CAD, recent PR, history of CHF - Continue home meds - Monitor for signs of fluid overload Depression/anxiety - Continue medications SAVANNA - Continue to utilize home CPAP PRETTY - Continue oral iron repletion - Hematology following as stated above. - iron studies pending - patient has follow up with Dr. Parsons to complete the remainder of her iron therapy. DVT prophylaxis - Chemoprophylaxis contraindicated due to active bleed - SCD/ARIN hose Written by Jocelyne Moore PA-C acting as scribe for Dr. Jules on 05/23/16 at 13:28. All or portions of this note were transcribed by scribe Jocelyne Moore PA-C. I, Dr. Hector Jules personally performed the history, physical exam, and medical decision making; and confirmed the accuracy of the information in the transcribed note. Authenticated by Dr. Hector Jules on 05/23/16 at 15:54. Discharge Planning Possible discharge home tomorrow after completing IV iron therapy if labs are stable. Jocelyne Moore May 23, 2016 14:27 Hector Jules MD May 23, 2016 15:54
[2016-05-23 15:10] LABS: TRANSFERRIN IRON PROFILE 281 MG/DL (200-360)
[2016-05-23 15:13] LABS: FERRITIN 316 NG/ML (8-252)
[2016-05-23] MEDS: hydrALAZINE HCL 10 MG TAB PO SCH ×2 (15:20→22:20)
[2016-05-23] MEDS: ACETAMINOPHEN 500 MG CPLT PO PRN (20:43)
[2016-05-23] MEDS: MONTELUKAST SODIUM 10 MG TAB PO SCH (20:43)
[2016-05-23] MEDS: FENOFIBRATE 145 MG TAB PO SCH (20:43)
[2016-05-23] MEDS: REMOVE OLD NICODERM (NICOTINE) PATCH TD SCH (20:45)
[2016-05-24 00:18] VITALS: BP 137/73; PULSE 66; RESP 18; TEMP 98.9; O2SAT 99
[2016-05-24 04:07] VITALS: BP 141/78; PULSE 69; RESP 20; TEMP 98.6; O2SAT 100
[2016-05-24 06:30] VITALS: PULSE 71
[2016-05-24] MEDS: INSULIN ASPART SUPPLEMENTAL SCALE SQ SCH (07:00)
[2016-05-24] MEDS: ISOSORBIDE MONONITRATE 30 MG TAB PO SCH (07:21)
[2016-05-24] MEDS: hydrALAZINE HCL 10 MG TAB PO SCH (07:21)
[2016-05-24 08:00] VITALS: BP 158/70; PULSE 78; RESP 18; TEMP 98.1; O2SAT 95
[2016-05-24 08:00] LABS: HEMATOCRIT 26.3 % (35.0-46.0)
[2016-05-24 08:06] LABS: REVIEW FLAG FINAL
[2016-05-24] MEDS: THEOPHYLLINE 100 MG EXTENDED RELEASE CAP PO SCH (09:02)
[2016-05-24] MEDS: THEOPHYLLINE 200 MG EXTENDED RELEASE CAP PO SCH (09:02)
[2016-05-24] MEDS: BUDESONIDE-FORMOTEROL 160/4.5 MCG INHALER INH SCH (09:11)
[2016-05-24] MEDS: TIOTROPIUM BROMIDE 18 MCG INH INH SCH (09:12)
[2016-05-24] MEDS: DILTIAZEM-CD 240 MG CAP ER PO SCH (09:14)
[2016-05-24] MEDS: NICOTINE 21 MG/24 HR PATCH TD SCH (09:14)
[2016-05-24] MEDS: NYSTATIN 100,000 U/GM PWD 15 GM BTL TOPICAL SCH (09:14)
[2016-05-24] MEDS: PANTOPRAZOLE SOD 40 MG DELAYED RELEASE TAB PO SCH (09:14)
[2016-05-24] MEDS: SERTRALINE HCL 50 MG TAB PO SCH (09:14)
[2016-05-24] MEDS: ASCORBIC ACID 500 MG TAB PO SCH (09:14)
[2016-05-24] MEDS: guaiFENesin E.R. 600 MG TAB PO SCH (09:14)
[2016-05-24] MEDS: FERROUS SULFATE 325 MG (65 MG ELEMENTAL IRON) TAB PO SCH (09:14)
[2016-05-24] MEDS: LOSARTAN 50 MG TAB PO SCH (09:15)
[2016-05-24] MEDS: SODIUM CHLORIDE 0.9% FLUSH 5 ML FLUSH IV FLUSH SCH (09:15)
[2016-05-24] MEDS: METOPROLOL SUCCINATE 50 MG EXTENDED RELEASE TAB PO SCH (09:15)
[2016-05-24] MEDS: IRON SUCROSE INJ 100 MG in SODIUM CHLORIDE 0.9% INJ 100 ML IV SCH (09:15)
[2016-05-24] MEDS ORDERED: HYDR10TA23 PO (09:23)
[2016-05-24] MEDS ORDERED: NICO21DI2 TD (09:23)
--- NOTE | 2016-05-24 09:45 | HHI.DCPOC ---
Discharge Care Plan Diagnosis: (1) Iron (Fe) deficiency anemia (2) GI bleed (3) Symptomatic anemia (4) Acute kidney injury (5) Colon polyp Goals to Promote Your Health * To prevent worsening of your condition and complications * To maintain your health at the optimal level Directions to Meet Your Goals Please quit smoking Take your medications as prescribed Follow your dietary instruction Follow activity as directed Keep your appointments as scheduled Take your immunizations and boosters as scheduled If your symptoms worsen call your PCP, if no PCP go to Urgent Care Center or Emergency Room Smoking is Dangerous to Your Health. Avoid second hand smoke Call the 24-hour hour crisis hotline for domestic abuse at Jocelyne Moore May 24, 2016 09:45
--- NOTE | 2016-05-24 09:58 | HHI.DS ---
Discharge Summary Admission Date May 22, 2016 at 17:12 Discharge Date: May 24, 2016 Admitting Diagnosis GI Bleed (1) Colon polyp ICD Code: K63.5 (2) Iron (Fe) deficiency anemia ICD Code: D50.9 (3) GI bleed ICD Code: K92.2 (4) Acute kidney injury ICD Code: N17.9 (5) Symptomatic anemia ICD Code: D64.9 Procedures Colonoscopy with polypectomy and ablation of ulcer base performed by Dr. Graham on 05/22/16 Brief History - From Admission This is a 75-year-old female with past medical history significant for COPD with continued tobacco use, hypertension, CAD with previous DE, CHF, osteoarthritis, diabetes, GERD and sleep apnea CPAP compliant who was just admitted to the hospital on 05/09/16 with complaints of symptomatic anemia secondary to GI bleed who presents to [facility] ED with complaints of dark brown stool concerning for blood 2. Patient denies any other complaints including fatigue, chest pain, palpitations, weakness, abdominal pain or change in her baseline shortness of breath. During the 05/09/16 admission, patient received several units of packed red blood cells and was evaluated by GI. She underwent a upper and lower endoscopies and there was no evidence of active bleeding however she did undergo a polypectomy. She was also noted to have severe iron deficiency anemia and hematology was consult and recommended iron infusions 3 days which she received during her inpatient stay. In the ED, patients stool was guaiac positive. CBC/BMP: 05/24/16 0720 05/21/16 0509 Significant Findings Laboratory Tests Test 05/21/16 05/21/16 05/21/16 05/22/16 11:40 17:18 22:45 07:50 Hemoglobin 7.0 GM/DL 7.1 GM/DL 7.2 GM/DL 7.1 GM/DL (11.6-15.3) (11.6-15.3) (11.6-15.3) (11.6-15.3) Hematocrit 22.7 % 23.1 % 23.3 % 23.5 % (35.0-46.0) (35.0-46.0) (35.0-46.0) (35.0-46.0) Test 05/22/16 05/23/16 05/23/16 05/24/16 16:05 07:10 12:59 07:20 Hemoglobin 7.7 GM/DL 7.8 GM/DL 8.2 GM/DL (11.6-15.3) (11.6-15.3) (11.6-15.3) Hematocrit 24.8 % 24.9 % 26.3 % (35.0-46.0) (35.0-46.0) (35.0-46.0) Red Blood Count 3.25 MIL/MM3 (4.00-5.30) Mean Corpuscular Volume 76.6 FL (80.0-100.0) Mean Corpuscular Hemoglobin 23.9 PG (27.0-34.0) Mean Corpuscular Hemoglobin 31.2 % Concent (32.0-36.0) Red Cell Distribution Width 26.6 % (11.6-17.2) Neutrophils (%) (Auto) 76.3 % (16.0-70.0) Monocytes (%) (Auto) 9.6 % (0.0-8.0) Lymphocytes # (Auto) 0.8 TH/MM3 (1.0-4.8) Ferritin 316 NG/ML (8-252) PE at Discharge GENERAL: This is a well-nourished, well-developed patient, in no apparent distress. Pleasant and cooperative. A&Ox3. Sitting on side of hospital bed eating breakfast. SKIN: Livia rash. HEAD: Atraumatic. Normocephalic. CARDIOVASCULAR: Regular rate and rhythm without murmurs, gallops, or rubs. RESPIRATORY: Some scattered wheezing noted. Slightly diminished breath sounds equal bilaterally. GASTROINTESTINAL: Abdomen soft, non-tender, nondistended. No hepato-splenomegaly , or palpable masses. No guarding. MUSCULOSKELETAL: Extremities without clubbing, cyanosis, or edema. No joint tenderness, effusion, or edema noted. No calf tenderness. NEUROLOGICAL: Awake and alert. Patient moves all 4 extremities. No focal neurologic findings appreciated. Pt update on day of discharge Patient reports that she is much improved today. Shortness of breath is better and has returned to baseline. She denies any recurrence of bleeding. She has no other acute medical issues at this time. She understands that she is to receive another unit of iron infusion today prior to her discharge home. Hospital Course Patient with melena and suspected GI bleed with history of iron deficiency anemia requiring transfusion and previous colonoscopy and polypectomy a few days prior to admission. Patient's stool was guaiac positive in the ED. GI was consulted. Serial H&H's were ordered. A type and screen to be obtained and patient was started on a Protonix drip in the ED. Patient was maintained on a clear liquid diet. Patient had slight elevation in her creatinine indicate acute kidney injury with a level of 1.1 but this resolved with some gentle hydration. She was resumed on her home medications to treat her other comorbidities. Patient had a drop in hemoglobin and hematocrit and a repeat colonoscopy was ordered by Dr. Xie which patient underwent on 05/22/16 reveals an additional polypectomy and fulguration of previous polypectomy site. Patient continued to have a drop in hemoglobin following the procedure and therefore hematology was consulted who ordered 1 unit of blood to be transfused as well as iron infusion over 3 days. Patient's hemoglobin improved 8.2 and hematocrit 26.3. Patient is cleared for discharge to home with instructions to follow-up with Dr. Parsons in 1 week. Pt Condition on Discharge: Stable Discharge Disposition: Discharge Home Discharge Time: > 30 minutes Discharge Instructions DIET: Follow Instructions for: Heart Healthy Diet, Diabetic Diet Activities you can perform: Regular-No Restrictions Follow up Referrals: Gastroenterology - 2 Weeks Oncology - 1 Week with Stephanie Parsons MD PCP Follow-up - 1 Week New Medications: Hydralazine (Hydralazine) 10 Mg Tab 10 MG PO Q8H HYPERTENSION #84 TAB Nicotine Patch (Nicotine Patch) 21 Mg/24 Hr Patch 1 PATCH TD DAILY TOBACCO USE #7 BOX Continued Medications: Ascorbic Acid (Vitamin C) 500 Mg Tab 500 MG PO DAILY vitamin #30 TAB Budesonide-Formoterol Inh (Symbicort Inh) 160-4.5 Mcg/Act Aero 2 PUFF INH DAILY #1 Ref 0 INHALER Diltiazem ER 24 HR (Dilt-Xr) 240 Mg Caper 240 MG PO DAILY #30 Ref 0 CAP Fenofibrate (Fenofibrate) 145 Mg Tab 145 MG PO HS #30 Ref 0 TAB Ferrous Sulfate (Ferrous Sulfate) 325 Mg Tab 325 MG PO BID anemia #60 TAB Furosemide (Lasix) 40 Mg Tab 40 MG PO BID #60 Ref 0 TAB Guaifenesin ER 12 HR (Mucinex ER 12 HR) 600 Mg Gilberto 600 MG PO BID expectorant #20 TAB Isosorbide Mononitrate ER (Isosorbide Mononitrate ER) 30 Mg Gilberto 30 MG PO DAILY Prevent Chest Pain #30 Ref 0 TAB Losartan (Losartan) 100 Mg Tab 100 MG PO DAILY Blood Pressure Management #30 Ref 0 TAB Metformin (Metformin) 1,000 Mg Tab 1000 MG PO BIDPC With meals Blood Sugar Management #60 Ref 0 TAB Metoprolol Succinate ER 24 HR (Toprol XL) 50 Mg Tab 50 MG PO BID #30 Ref 0 TAB Montelukast (Singulair) 5 Mg Chew 5 MG CHEW HS #30 Ref 0 TAB Pantoprazole (Protonix) 40 Mg Tab 40 MG PO DAILY Reflux #30 Ref 0 TAB Potassium Chloride ER (Micro-K) 10 Meq Cap 20 MEQ PO BID Electrolyte Replacement #60 Ref 0 CAP Sertraline (Sertraline) 50 Mg Tab 50 MG PO DAILY #30 Ref 0 TAB Theophylline ER 24 HR (Theophylline ER 24 HR) 400 Mg Tab 300 MG PO DAILY #30 Ref 0 TAB Tiotropium Inh (Spiriva Handihaler) 18 Mcg Cap 18 MCG INH DAILY 1 capsule = 18 mcg COPD #30 Ref 0 CAP Discontinued Medications: Pantoprazole (Pantoprazole) 40 Mg Tab 40 MG PO DAILY GI protection #30 TAB Prednisone (48) 5 mg tab Dose Pack (Prednisone (48) 5 mg tab Dose Pack) 5 Mg Dspk 5 MG PO DIRECTED Inflammation #1 Ref 0 DSPK Additional Information Patient is strongly advised to please stop smoking Written by Jocelyne Moore PA-C acting as scribe for Dr. Jules on 05/24/16 at 09:57. All or portions of this note were transcribed by scribe Jocelyne Moore PA-C. I, Dr. Hector Julse personally performed the history, physical exam, and medical decision making; and confirmed the accuracy of the information in the transcribed note. Authenticated by Dr. Hector Jules on 05/24/16 at 11:21. Jocelyne Moore May 24, 2016 09:58 Hector Jules MD May 24, 2016 11:22
== END 2016-05-24 11:31 | disposition home or self-care (01) | DRG 920 ==
LOC: PHED 09:13 → PHEDA 12:39 → PH3A 14:12 → OBSVTOIN 05-22 17:12
PROVIDERS: ADMIT Family Medicine; ATTEND Family Medicine
PROC: 0D5H8ZZ Destruction of Cecum, Via Natural or Artificial Opening Endoscopic (ICD-10-PCS; 2016-05-21)
PROC: 0DBK8ZX Excision of Ascending Colon, Via Natural or Artificial Opening Endoscopic, Diagnostic (ICD-10-PCS; 2016-05-21)
PROC: 0W3P8ZZ Control Bleeding in Gastrointestinal Tract, Via Natural or Artificial Opening Endoscopic (ICD-10-PCS; principal; 2016-05-21 07:15)
PROC: 30233N1 Transfusion of Nonautologous Red Blood Cells into Peripheral Vein, Percutaneous Approach (ICD-10-PCS; 2016-05-22)
DX: K91.840 Postprocedural hemorrhage of a digestive system organ or structure following a digestive system procedure (principal); K92.1 Melena; N17.9 Acute kidney failure, unspecified; K63.3 Ulcer of intestine; E11.22 Type 2 diabetes mellitus with diabetic chronic kidney disease; D50.0 Iron deficiency anemia secondary to blood loss (chronic); I12.9 Hypertensive chronic kidney disease with stage 1 through stage 4 chronic kidney disease, or unspecified chronic kidney disease; I50.9 Heart failure, unspecified; J44.9 Chronic obstructive pulmonary disease, unspecified; D12.0 Benign neoplasm of cecum; D12.2 Benign neoplasm of ascending colon; F17.210 Nicotine dependence, cigarettes, uncomplicated; K57.30 Diverticulosis of large intestine without perforation or abscess without bleeding; I25.10 Atherosclerotic heart disease of native coronary artery without angina pectoris; K21.9 Gastro-esophageal reflux disease without esophagitis; N18.9 Chronic kidney disease, unspecified; G47.33 Obstructive sleep apnea (adult) (pediatric); F32.9 Major depressive disorder, single episode, unspecified; F41.9 Anxiety disorder, unspecified; I25.2 Old myocardial infarction; D17.5 Benign lipomatous neoplasm of intra-abdominal organs; E78.5 Hyperlipidemia, unspecified; R21 Rash and other nonspecific skin eruption; Z79.84 Long term (current) use of oral hypoglycemic drugs; Z88.5 Allergy status to narcotic agent; Z88.0 Allergy status to penicillin; Y83.8 Other surgical procedures as the cause of abnormal reaction of the patient, or of later complication, without mention of misadventure at the time of the procedure
CPT/HCPCS: 36430; 80048; 80053; 81001; 82728; 82948; 83540; 83550; 83690; 85014; 85018; 85025; 85610; 85730; 86850; 86900; 86901; 86920; 86922; 88305; 94664; 96365; C9113; G0378; J1756; J1815; J7030; J7050; P9016